=== PATIENT | female | born 1990 | race Two or more races ===

== ENCOUNTER 2021-06-04 10:30 | Outpatient (REF) | payer MEDICAID, SELFPAY ==
--- NOTE | ~2021-06-04 | XR_ITS ---
EXAMINATION: XR HAND, RIGHT CLINICAL INFORMATION: Unspecified injury of right wrist, hand and fingers, initial encounter. COMPARISON: None TECHNIQUE: PA, lateral, and oblique views of the right hand. FINDINGS: The bones and soft tissues are normal. No fracture. Alignment is anatomic. Joint spaces are maintained. No erosions or soft tissue calcifications. XR/XR hand RT min 3V IMPRESSION: Normal right hand.
== END 2021-06-04 10:31 | disposition home or self-care (01) ==
LOC: HO.XRAY 10:30
PROVIDERS: Absent Provider Internal Medicine; PCP Internal Medicine; Visit Provider Family Medicine
DX: S69.91XA Unspecified injury of right wrist, hand and finger(s), initial encounter (principal)
CPT/HCPCS: 73130

== ENCOUNTER 2023-04-02 07:23 | Emergency (ER) | payer MEDICAID, SELFPAY ==
--- NOTE | ~2023-04-02 | XR_ITS ---
EXAMINATION: XR CHEST CLINICAL INFORMATION: Left-sided chest pain for one month. COMPARISON: None available. TECHNIQUE: 2 views of the chest were obtained. FINDINGS: No significant abnormality is noted involving the heart, lungs, mediastinum, bony thorax or soft tissues. XR/XR chest 2V IMPRESSION: No acute cardiopulmonary process.
[2023-04-02 07:36] VITALS: BP 108/75; PULSE 57; RESP 18; TEMP 36.2; O2SAT 99; BMI 15.2
--- NOTE | 2023-04-02 09:00 | ED.GENADULT ---
HPI - General Adult General Chief complaint: Abdominal Pain Stated complaint: Chest pain Time Seen by Provider: 04/02/23 08:45 Source: patient Mode of arrival: ambulatory Limitations: no limitations History of Present Illness HPI narrative: Patient presents with left lower chest pain. Symptoms started approximately 1 month ago. They are progressively getting worse. Her pain level is currently 8/10. Pain is sharp. Is worse with certain movements and coughing. The pain does not radiate. It is not associated with nausea, vomiting or shortness breath. She has had no fevers or chills. No mucus production. No congestion.. There are no Anh relieving features. No prior treatment. Patient is also being treated for urinary tract infection with Macrobid. She reports to continue of urinary frequency, urgency and dysuria she denies any flank pain or low back pain Related Data Previous Rx's Medication Instructions Recorded meloxicam 15 mg tablet 15 mg PO DAILY #10 tabs 04/02/23 Allergies Allergy/AdvReac Type Severity Reaction Status Date / Time aspirin [Aspirin] Allergy Unknown RASH Unverified 06/21/20 17:55 Review of Systems Review of Systems: CONSTITUTIONAL: Denies weight loss, fever and chills. HEENT: Denies changes in vision and hearing. RESPIRATORY: Denies SOB and cough. CV: Denies palpitations + CP. GI: Denies abdominal pain, nausea, vomiting and diarrhea. : + dysuria and urinary frequency. MSK: Denies myalgia and joint pain. SKIN: Denies rash and pruritus. NEUROLOGICAL: Denies headache and syncope. PSYCHIATRIC: Denies recent changes in mood. Denies anxiety and depression. All other ROS are negative unless in HPI PMF Social History Social History Smoked in Last 30 Days: No Use of substances other than those prescribed or required for medical reasons: No Advance Directives: No Physical Exam ED Vital Signs: Vital Signs - 24 hr 04/02/23 09:45 Temperature 97.2 F Pulse Rate 57 Respiratory Rate 18 Blood Pressure 108/75 Pulse Oximetry 99 Oxygen Delivery Method Room Air BMI result Body Mass Index 15.2 GEN: Well developed, no acute distress, alert, oriented HEENT: Normocephalic, atraumatic, normal external ears, nose appears normal, no oropharyngeal edema or exudates Eyes: Normal to appearance Neck: Supple, no lymphadenopathy Respiratory: Talks in complete sentences, no respiratory distress, clear to auscultation bilaterally Cardiovascular: Regular rate and rhythm, no murmurs rubs or gallops Abdomen: Soft, nontender, nondistended, no guarding, no rebound Back: No CVA tenderness Extremities: No clubbing cyanosis or edema Neurologic: No focal neurologic deficits, cranial nerves 2-12 intact, strength is 5/5 bilaterally Skin: No rash Chest: Reproducible left lower chest wall tenderness to palpation Course Course Course Narrative: 32-year-old female presents with left-sided chest pain. Her examination revealed tenderness the left chest wall. This is nonexertional. Unlikely to be cardiac in nature. There is no indication to do EKG, troponin at this time. Chest x-ray was unremarkable free cardiopulmonary disease. Patient was also complaining of continued urinary symptoms. Urinary tract infection appears to be resolving. She will complete her medications and follow up as needed. Medications Administered Discontinued Medications Generic Name Dose Route Start Last Admin Trade Name Freq PRN Reason Stop Dose Admin Ibuprofen 600 mg 04/02/23 08:58 04/02/23 09:31 Ibuprofen 600 Mg Tablet PO 04/02/23 08:59 600 mg ONCE ONE Administration Medical Decision Making Medical Decision Making [facility] Narrative: 32-year-old female presents with lower chest pain. Examination had reproducible component to her exam. Her lungs were clear to auscultation bilaterally. Abdomen was soft and nontender although nurse triage note noted abdominal pain. She also complains of some urinary complaints and is currently on Macrobid. Regarding her chest pain, the differential diagnosis includes musculoskeletal pain, strain, sprain, costochondritis, fracture, contusion. There is no exertional component. This does not appear to be cardiac in nature. There is no lower extremity edema. No history PE or DVT. Doubt acute coronary syndrome, pulmonary embolus. Her radial pulses are symmetric bilaterally. Doubt dissection. At this point I believe the most appropriate study of choice would be to do chest x-ray to exclude widened mediastinum, pneumonia, CHF or other acute infiltrative disease. The patient continues have urinary complaints. Will check urinalysis. She may require further antibiotic treatment. Differential Diagnosis Differential Diagnoses: The differential diagnosis associated with the presentation includes (See above) Lab Data [facility] Lab Attestation statement: I reviewed the patient's lab results. Labs: Lab Results 04/02/23 04/02/23 Range/Units 08:47 08:47 Urine Color Yellow Urine Appearance Clear Urine pH 6.0 (5.0-9.0) Ur Specific [place] 1.020 (1.005-1.025) Urine Protein Negative (Neg-Trace) mg/dL Urine Glucose (UA) Negative (Negative) mg/dL Urine Ketones Negative (Negative) mg/dL Urine Blood Negative (Negative) Urine Nitrite Negative (Negative) Ur Leukocyte Esterase Trace H (Negative) Urine RBC 3-5 H (0-2) /HPF Urine WBC 0-5 (0-5) /HPF Ur Squamous Epith Cells 3-5 (0-2) /HPF Urine Bacteria Trace (None Seen) Hyaline Casts 0-2 (0-2) /LPF Urine Test NEGATIVE (NEGATIVE) Independent Interpretation I performed an independent interpretation of an: Plain X-Ray (Chest: No acute cardiopulmonary disease) Prescription Management I considered prescription management with: Pain Medication Discharge Plan Discharge Clinical Impression: Acute chest wall pain Patient Disposition: Home, Self-Care Instructions: Chest Pain (ED), Chest Wall Pain (ED) Prescriptions: New meloxicam 15 mg tablet 15 mg PO DAILY Qty: 10 0RF Referrals: [facility] [Primary Care Provider] - Stand Alone Forms: Work/School Release Print Language: Guatemalan
[2023-04-02 09:17] LABS: Appearance Urine Clear; Color Urine Yellow; Glucose Urine UA Negative (Negative); Leukocyte Esterase Urine Trace (Negative); Nitrite Urine Negative (Negative); UMIC TRIGGER UACC YES; Urine Blood Negative (Negative); Urine Ketones Negative (Negative); Urine Protein Negative (Neg-Trace)
[2023-04-02 09:18] LABS: UPreg QC Valid YES; Urine Pregnancy NEGATIVE (NEGATIVE)
[2023-04-02 09:20] LABS: Bacteria Urine Trace (None Seen); Hyaline Casts Urine 0-2 /LPF (0-2); WBC Urine 0-5 /HPF (0-5)
[2023-04-02] MEDS: Ibuprofen 600 MG TABLET PO (09:31)
== END 2023-04-02 10:11 | disposition home or self-care (01) ==
PROVIDERS: Emergency Provider Emergency Medicine
DX: R07.89 Other chest pain (principal); Z79.899 Other long term (current) drug therapy
CPT/HCPCS: 71046; 81001; 81025; 99283

== ENCOUNTER 2023-05-06 17:44 | Outpatient (REF) | payer MEDICAID, SELFPAY | END 2023-05-06 17:45 | disposition home or self-care (01) | LOC: HO.HHCLNP 17:44 | PROVIDERS: Visit Provider Emergency Medicine | DX: R30.0 Dysuria (principal) | CPT/HCPCS: 87086; 87186 ==

== ENCOUNTER 2023-07-31 09:45 | Outpatient (REF) | payer MEDICAID, SELFPAY ==
[2023-07-31 11:30] LABS: MANUAL DIFF FLAG NO
[2023-07-31 11:43] LABS: Basophils Absolute Auto 0.1 X10*3/uL (0.0-0.2); Basophils Percent Auto 0.9 % (0-2); Eosinophils Absolute Auto 0.1 X10*3/uL (0.0-0.4); Eosinophils Percent Auto 1.9 % (0-4); Hematocrit 40.6 % (37.0-47.0); Hemoglobin 13.3 g/dl (12.0-16.0); Imm Gran Abs Auto 0.04 X10*3/uL (0.00-0.03); Imm Gran Pct Auto 0.5 % (0.0-0.4); Lymphocytes Absolute Auto 1.7 X10*3/uL (1.2-4.9); Lymphocytes Percent Auto 22.4 % (20-40); Mean Corpuscular HGB Conc 32.8 g/dl (31.0-35.0); Mean Corpuscular Hemoglobin 28.2 pg (27.0-33.0); Mean Platelet Volume 10.8 fL (9.4-12.3); Monocytes Absolute Auto 0.5 X10*3/uL (0.1-1.2); Neutrophils Percent Auto 67.3 % (45-73); Platelet Count 370 X10*3/uL (160-400); Red Blood Count 4.72 X10*6/uL (4.20-5.50); Red Cell Distribution Width 13.2 % (11.0-16.0); White Blood Count 7.5 X10*3/uL (4.8-10.8)
[2023-07-31 12:24] LABS: HIV AB/AG Nonreactive (Nonreactive); HIV Num 1 0.08 S/CO (0.00-0.99)
[2023-07-31 12:27] LABS: Syphilis Screen Nonreactive (Nonreactive)
[2023-07-31 18:22] LABS: Appearance Urine Clear; Color Urine Yellow; Glucose Urine UA Negative (Negative); Leukocyte Esterase Urine Negative (Negative); Nitrite Urine Negative (Negative); PH 6.5 (5.0-9.0); Specific Gravity - Urine <= 1.005 (1.005-1.025); Urine Blood Negative (Negative); Urine Ketones Negative (Negative); Urine Protein Negative (Neg-Trace)
[2023-08-01 06:54] LABS: CT PCR NOT DETECTED (Not Detect.); NG PCR NOT DETECTED (Not Detect.)
[2023-08-01 11:23] LABS: BV Int Neg Control Negative (Negative); BV Int Pos Control Positive (Positive)
== END 2023-07-31 09:46 | disposition home or self-care (01) ==
LOC: HO.HHCL 09:45
PROVIDERS: Visit Provider Student in an Organized Health Care Education/Training Program
DX: Z11.4 Encounter for screening for human immunodeficiency virus [HIV] (principal); N73.9 Female pelvic inflammatory disease, unspecified; R30.0 Dysuria
CPT/HCPCS: 0353U; 36415; 81003; 85025; 86780; 87389; 87480; 87510; 87660

== ENCOUNTER 2023-08-14 14:49 | Outpatient (REF) | payer MEDICAID, SELFPAY | END 2023-08-14 14:50 | disposition home or self-care (01) | LOC: HO.HHCL 14:49 | PROVIDERS: Visit Provider Internal Medicine | DX: L65.9 Nonscarring hair loss, unspecified (principal); N89.8 Other specified noninflammatory disorders of vagina | CPT/HCPCS: 36415; 81513; 84443 ==

== ENCOUNTER 2023-09-01 07:28 | Emergency (ER) | payer MEDICAID, SELFPAY ==
--- NOTE | ~2023-09-01 | XR_ITS ---
EXAMINATION: XR CHEST CLINICAL INFORMATION: Chest pain. COMPARISON: None available. TECHNIQUE: Frontal view of the chest was obtained. FINDINGS: No significant abnormality is noted involving the heart, lungs, mediastinum, bony thorax or soft tissues. XR/XR chest 1V IMPRESSION: Unremarkable chest examination.
--- NOTE | 2023-09-01 07:30 | ECG_ITS ---
Test Reason : chest pain Blood Pressure : / mmHG Vent. Rate : 063 BPM Atrial Rate : 063 BPM P-R Int : 112 ms QRS Dur : 062 ms QT Int : 408 ms P-R-T Axes : 056 051 029 degrees QTc Int : 417 ms Sinus rhythm with marked sinus arrhythmia Otherwise normal ECG When compared with ECG of 18-MAR-2010 22:00, Nonspecific T wave abnormality now evident in Anterior leads Referred By: Generic ED Physician Electronically Signed By:SHARON GARCIA MD
--- NOTE | 2023-09-01 07:34 | ED.CHESTPAIN ---
HPI - Chest Pain General Chief Complaint: Chest Pain Stated Complaint: Chest & Back Discomfort Time Seen by Provider: 09/01/23 07:31 Source: patient and old records reviewed Mode of arrival: ambulatory Limitations: no limitations History of Present Illness HPI narrative: 32 yo female with no sig PMH other than UTI here with c/o a few days of sore throat, body aches, some pain across the chest, some dysuria. No fevers, no dyspnea, not on OCPs, no travel, no sick contacts. Has had chest pain in the past. MD complaint: chest pain Onset (ago): day(s) (few) Timing of current episode: constant Prior episodes: Yes Onset: during rest Pain location: substernal Pain radiation: none Severity: mild Quality: aching Relieving factors: nothing Exacerbating factors: palpation Context: recent illness Associated symptoms: other (sore throat, body aches, dysuria) Treatment prior to arrival: none Related Data Previous Rx's Medication Instructions Recorded meloxicam 15 mg tablet 15 mg PO DAILY #10 tabs 04/02/23 cyclobenzaprine 10 mg tablet 10 mg PO TID PRN muscle spasm #20 09/01/23 tabs Allergies Allergy/AdvReac Type Severity Reaction Status Date / Time aspirin [Aspirin] Allergy Unknown RASH Unverified 06/21/20 17:55 Review of Systems Review of Systems: Constitutional : No Weight loss, No Fever, No Chills ENT/Mouth : pos sore throat, No Rhinorrhea Eyes: No Eye Pain, No Swelling Cardiovascular : pos Chest Pain, no SOB, no Dyspnea on Exertion, No Orthopnea, No Edema, No Palpitations Respiratory : No Cough, No Sputum Gastrointestinal : no Nausea, No Vomiting, No Diarrhea, No abdominal Pain, No Hematochezia, No Melena Genitourinary : pos Dysuria, No Urinary Frequency Musculoskeletal : No joint pain, pos Myalgias, No Joint Swelling Skin : No Skin Lesions, No rash Neuro : No Weakness, No Numbness, No Dizziness, No Headache Psych : No Anxiety/Panic, No Depression Heme/Lymph: No Bruising, No Lymphadenopathy Endocrine : No Polyuria, No Polydipsia All other systems reviewed and are negative PMFSH Past Medical History Attestation statement: The following information was validated with the patient. Source: old records reviewed Medical History Acute UTI Social History Social History (Updated 09/01/23 @ 07:35 by Yvonne Harper DO) Patient Tobacco Use Status: Never used Tobacco Advance Directives: No Physical Exam Vital Signs: Vital Signs: Last Vital Signs Temp 97.7 F 09/01/23 07:40 Pulse 64 09/01/23 09:41 Resp 17 09/01/23 09:41 BP 108/64 09/01/23 09:41 Pulse Ox 98 09/01/23 09:41 O2 Del Method Room Air 09/01/23 07:40 BMI result Body Mass Index 34.1 Appearance: Alert. Oriented X3. No acute distress. Eyes: Pupils equal, round and reactive to light. ENT: Pharynx mild erythema there is tonsil swelling but no exudates and uvula is midline Neck: Normal inspection. Neck supple. normal ROM CVS: Normal heart rate and rhythm. Pulses normal. Respiratory: No respiratory distress. Breath sounds normal. Abdomen: Soft and nontender. Skin: Skin warm and dry. Normal skin color. Normal skin turgor. Extremities: No lower extremity edema. No calf ttp Neuro: Oriented X 3. No motor deficit. No sensory deficit. Medical Decision Making Medical Decision Making [facility] Narrative: 32 yo female with PMH of UTI and prior chest pain - PERC negative no ACS risk factors here with c/o URI symptoms and some dysuria also diffuse body aches that includes chest pain - at this time will obtain EKG, CXR, viral panel/strep and trop x 1. Suspect chest wall pain and possibly viral syndrome vs strep. Normal neck ROM tolerating secretinos, normal voice doubt [employer], retropharyngeal abscess or deeper space infection. Differential Diagnosis Differential Diagnoses: The differential diagnosis associated with the presentation includes viral syndrome, chest wall pain, strep throat Admission/Observation Consideration of admission/observation: Escalation of care including admission/observation considered work up negative not toxic stable for DC Lab Data [facility] Lab Attestation statement: I reviewed the patient's lab results. 09/01/23 08:40 09/01/23 08:40 Labs: Lab Results 09/01/23 Range/Units 08:40 WBC 9.1 (4.8-10.8) X10*3/uL RBC 4.71 (4.20-5.50) X10*6/uL Hgb 13.4 (12.0-16.0) g/dl Hct 40.2 (37.0-47.0) % MCV 85.4 (80.0-98.0) fL MCH 28.5 (27.0-33.0) pg MCHC 33.3 (31.0-35.0) g/dl RDW 13.5 (11.0-16.0) % Plt Count 330 (160-400) X10*3/uL MPV 9.8 (9.4-12.3) fL Immature Gran % (Auto) 0.4 (0.0-0.4) % Neut % (Auto) 70.9 (45-73) % Lymph % (Auto) 21.2 (20-40) % [place] % (Auto) 5.0 (2-11) % Eos % (Auto) 2.1 (0-4) % Baso % (Auto) 0.4 (0-2) % Lymph # (Auto) 1.9 (1.2-4.9) X10*3/uL [place] # (Auto) 0.5 (0.1-1.2) X10*3/uL Eos # (Auto) 0.2 (0.0-0.4) X10*3/uL Baso # (Auto) 0.0 (0.0-0.2) X10*3/uL Abs Immat Gran (auto) 0.04 H (0.00-0.03) X10*3/uL Absolute Neuts (auto) 6.4 (2.0-8.3) x10*3/uL Absolute Nucleated RBC 0.000 (0.0-0.012) X10*3/uL Nucleated RBC % (auto) 0.0 (0.0-0.2) /100WBC Sodium 139 (135-145) mmol/L Potassium 3.8 (3.3-5.1) mmol/L Chloride 106 (96-108) mmol/L Carbon Dioxide 27 (22-29) mmol/L Anion Gap 10 L (12-20) BUN 11 (9-16) mg/dL Creatinine 0.73 (0.5-1.4) mg/dL Estim Creat Clear Calc 112.7 Estimated GFR > 60 Random Glucose 97 (60-115) mg/dL Calcium 8.9 (8.4-10.2) mg/dL Magnesium 1.8 (1.6-2.6) mg/dL Total Bilirubin 0.4 (0.0-1.0) mg/dL Direct Bilirubin 0.2 (0.0-0.5) mg/dL AST 20 (5-31) U/L ALT 20 (0-31) U/L Alkaline Phosphatase 70 (39-117) U/L Troponin I High Sens < 2.7 (<3.5-17.0) ng/L Total Protein 7.1 (6.5-8.0) g/dL Albumin 3.8 (3.5-5.0) g/dL Urine Color Yellow Urine Appearance Cloudy Urine pH 5.5 (5.0-9.0) Ur Specific [place] 1.025 (1.005-1.025) Urine Protein Negative (Neg-Trace) mg/dL Urine Glucose (UA) Negative (Negative) mg/dL Urine Ketones Negative (Negative) mg/dL Urine Blood Negative (Negative) Urine Nitrite Negative (Negative) Ur Leukocyte Esterase Negative (Negative) Urine Test NEGATIVE (NEGATIVE) COVID-19 (TIFFANIE) Negative (Negative) COVID-19 Clin Com See Note S. pyogenes GrpA LATOSHA Negative (Negative) Independent Interpretation I performed an independent interpretation of an: EKG and Plain X-Ray (normal ) Interpretation: Rate: 63 Rhythm: NSR [place]: normal Normal P waves. Normal [place]ICA. Normal QRS complex. ST T wave : normal no [place], inverted t waves V1 and V2 qTC: normal prior studies: no acute ischemia, t waves noted in past The study has been interpreted contemporaneously by me. . Radiology Impression Discussion of test interpretation with radiology: I have reviewed the radiologist's reading. External Record Review External record reviewed: Inpatient record Prescription Management I considered prescription management with: Other Discharge Plan Discharge Clinical Impression: Atypical chest pain, Acute viral syndrome Patient Disposition: Home, Self-Care Instructions: Chest Pain (ED), Viral Syndrome (ED) Additional Instructions: no strep, no covid, labs, chest xray, heart tests, urine all normal negative . likely viral syndrome. return for worsening pain, fainting, dizziness, or any other concerns. sin estreptococos, sin covid, laboratorios, radiograf?a de t?rax, pruebas card?acas, orina, todo normal, embarazo negativo. Probablemente s?ndrome viral. Regrese si el dolor empraora, desmgabeos, cassidyos o cualquier otra inquietud. Prescriptions: New cyclobenzaprine 10 mg tablet 10 mg PO TID PRN (Reason: muscle spasm) Qty: 20 0RF No Action meloxicam 15 mg tablet 15 mg PO DAILY Qty: 10 0RF Stand Alone Forms: Work/School Release Interventions: ED Discharge Assessment Last Done: 09/01/23 09:42 Discharge Date/Time: 09/01/23 09:43 Print Language: Urdu
[2023-09-01 07:40] VITALS: BP 117/78; PULSE 60; RESP 18; TEMP 36.5; O2SAT 98; BMI 34.1
[2023-09-01 08:46] LABS: MANUAL DIFF FLAG NO
[2023-09-01 08:52] LABS: Basophils Percent Auto 0.4 % (0-2); Eosinophils Absolute Auto 0.2 X10*3/uL (0.0-0.4); Eosinophils Percent Auto 2.1 % (0-4); Hematocrit 40.2 % (37.0-47.0); Hemoglobin 13.4 g/dl (12.0-16.0); Imm Gran Abs Auto 0.04 X10*3/uL (0.00-0.03); Imm Gran Pct Auto 0.4 % (0.0-0.4); Lymphocytes Absolute Auto 1.9 X10*3/uL (1.2-4.9); Lymphocytes Percent Auto 21.2 % (20-40); Mean Corpuscular HGB Conc 33.3 g/dl (31.0-35.0); Mean Corpuscular Hemoglobin 28.5 pg (27.0-33.0); Mean Corpuscular Volume 85.4 fL (80.0-98.0); Mean Platelet Volume 9.8 fL (9.4-12.3); Monocytes Absolute Auto 0.5 X10*3/uL (0.1-1.2); Neutrophils Absolute Auto 6.4 x10*3/uL (2.0-8.3); Neutrophils Percent Auto 70.9 % (45-73); Platelet Count 330 X10*3/uL (160-400); Red Blood Count 4.71 X10*6/uL (4.20-5.50); Red Cell Distribution Width 13.5 % (11.0-16.0); White Blood Count 9.1 X10*3/uL (4.8-10.8)
[2023-09-01 08:53] LABS: Appearance Urine Cloudy; Color Urine Yellow; Glucose Urine UA Negative (Negative); Leukocyte Esterase Urine Negative (Negative); Nitrite Urine Negative (Negative); PH 5.5 (5.0-9.0); Specific Gravity - Urine 1.025 (1.005-1.025); Urine Blood Negative (Negative); Urine Ketones Negative (Negative); Urine Protein Negative (Neg-Trace)
[2023-09-01 08:54] LABS: UPreg QC Valid YES; Urine Pregnancy NEGATIVE (NEGATIVE)
[2023-09-01 09:05] LABS: Alanine Aminotransferase 20 U/L (0-31); Albumin Level 3.8 g/dL (3.5-5.0); Alkaline Phosphatase 70 U/L (39-117); Anion Gap 10 (12-20); Aspartate Amino Transferase 20 U/L (5-31); Bilirubin Direct 0.2 mg/dL (0.0-0.5); Bilirubin Total 0.4 mg/dL (0.0-1.0); Blood Urea Nitrogen 11 mg/dL (9-16); Calcium 8.9 mg/dL (8.4-10.2); Carbon Dioxide 27 mmol/L (22-29); Chloride 106 mmol/L (96-108); Creatinine Clr Calc Pharmacy 112.7; Estimated Glomerular Filt Rate > 60; Glucose Random 97 mg/dL (60-115); Magnesium 1.8 mg/dL (1.6-2.6); Potassium 3.8 mmol/L (3.3-5.1); Sodium 139 mmol/L (135-145); Total Protein 7.1 g/dL (6.5-8.0)
[2023-09-01 09:06] LABS: IDNOW Serial# 08D9AD1C; Strep A Nucleic Acid Negative (Negative)
[2023-09-01 09:12] LABS: Troponin-I High Sensitivity < 2.7 ng/L (<3.5-17.0)
[2023-09-01 09:13] LABS: COVID-19 Test Negative (Negative); IDNOW Serial# BCCEAD1C
[2023-09-01 09:41] VITALS: BP 108/64; PULSE 64; RESP 17; O2SAT 98
== END 2023-09-01 09:43 | disposition home or self-care (01) ==
PROVIDERS: Emergency Provider Emergency Medicine
DX: B34.9 Viral infection, unspecified (principal); R07.89 Other chest pain; Z11.52 Encounter for screening for COVID-19
CPT/HCPCS: 71045; 80048; 80076; 81003; 81025; 83735; 84484; 85025; 87635; 87651; 93005; 99283; 99285

== ENCOUNTER 2023-09-05 07:47 | Emergency (ER) | payer MEDICAID, SELFPAY ==
--- NOTE | ~2023-09-05 | US_ITS ---
EXAMINATION: US PELVIS CLINICAL INFORMATION: Lower abdominal pain, right lower quadrant tenderness COMPARISON: Pelvic ultrasound 08/09/2019. TECHNIQUE: Ultrasound of the pelvis is performed using both transabdominal and transvaginal transducers along with Doppler. Transvaginal imaging is performed due to inadequate visualization transabdominally. FINDINGS: Limited transabdominal examination and limited assessment of the right lower quadrant abdomen due to extensive overlying bowel gas. Uterus: The uterus is anteverted/retroflexed and measures 8.8 x 4.7 x 6.8 cm. Anterior lower uterine segment section scar. Normal size and appearance without focal myometrial lesions. The double wall endometrial thickness is 15 mm, homogeneously echogenic, secretory phase appearance. No focal endometrial lesions or hypervascularity identified The uterus is smooth in contour and has normal myometrial echogenicity. No visible fibroid. Adnexa: Both ovaries are visualized. There is normal color flow to the adnexa. There is no ovarian torsion. Small anechoic pelvic free fluid. No ascites. Right ovary measures 4.9 x 2.4 x 3.0 cm. Containing a dominant, 2.9 x 2.1 x 2.8 cm collapsed cystic structure, without internal vascularity, may represent a hemorrhagic cyst or corpus luteum. No suspicious lesions. Left ovary measures 2.6 x 1.9 x 1.6 cm. Normal size and appearance. Normal Doppler vascularity. Other: Appendix not visualized due to overlying bowel gas. US/US pelvic and transvaginal IMPRESSION: 1. No evidence of ovarian torsion, as clinically queried. 2. Right ovarian 2.9 cm collapsed cystic structure, may represent a hemorrhagic cyst or corpus luteum for which no dedicated follow-up imaging is required. 3. Small anechoic pelvic free fluid. 4. Nonvisualized appendix due to overlying bowel gas.
[2023-09-05 07:54] VITALS: BP 110/66; PULSE 66; RESP 18; TEMP 36.2; O2SAT 98; BMI 34.5
[2023-09-05 08:15] LABS: Appearance Urine Clear; Color Urine Yellow; Glucose Urine UA Negative (Negative); Leukocyte Esterase Urine Negative (Negative); Nitrite Urine Negative (Negative); Specific Gravity - Urine 1.025 (1.005-1.025); Urine Blood Negative (Negative); Urine Ketones Negative (Negative); Urine Protein Negative (Neg-Trace)
[2023-09-05 08:16] LABS: UPreg QC Valid YES; Urine Pregnancy NEGATIVE (NEGATIVE)
[2023-09-05 08:36] LABS: MANUAL DIFF FLAG NO
[2023-09-05 08:38] LABS: Basophils Absolute Auto 0.1 X10*3/uL (0.0-0.2); Basophils Percent Auto 0.6 % (0-2); Eosinophils Absolute Auto 0.2 X10*3/uL (0.0-0.4); Eosinophils Percent Auto 2.9 % (0-4); Hematocrit 39.9 % (37.0-47.0); Hemoglobin 13.3 g/dl (12.0-16.0); Imm Gran Abs Auto 0.03 X10*3/uL (0.00-0.03); Imm Gran Pct Auto 0.4 % (0.0-0.4); Lymphocytes Percent Auto 24.8 % (20-40); Mean Corpuscular HGB Conc 33.3 g/dl (31.0-35.0); Mean Corpuscular Hemoglobin 28.4 pg (27.0-33.0); Mean Corpuscular Volume 85.3 fL (80.0-98.0); Mean Platelet Volume 9.4 fL (9.4-12.3); Monocytes Absolute Auto 0.5 X10*3/uL (0.1-1.2); Monocytes Percent Auto 6.1 % (2-11); Neutrophils Absolute Auto 5.2 x10*3/uL (2.0-8.3); Neutrophils Percent Auto 65.2 % (45-73); Platelet Count 321 X10*3/uL (160-400); Red Blood Count 4.68 X10*6/uL (4.20-5.50); Red Cell Distribution Width 13.4 % (11.0-16.0)
[2023-09-05 08:57] LABS: Alanine Aminotransferase 23 U/L (0-31); Albumin Level 3.9 g/dL (3.5-5.0); Alkaline Phosphatase 73 U/L (39-117); Anion Gap 12 (12-20); Aspartate Amino Transferase 21 U/L (5-31); Bilirubin Direct 0.2 mg/dL (0.0-0.5); Bilirubin Total 0.5 mg/dL (0.0-1.0); Blood Urea Nitrogen 11 mg/dL (9-16); Calcium 9.2 mg/dL (8.4-10.2); Carbon Dioxide 26 mmol/L (22-29); Chloride 105 mmol/L (96-108); Creatinine Clr Calc Pharmacy 100.8; Estimated Glomerular Filt Rate > 60; Glucose Random 91 mg/dL (60-115); Lipase 20 U/L (8-78); Potassium 4.1 mmol/L (3.3-5.1); Sodium 139 mmol/L (135-145); Total Protein 7.4 g/dL (6.5-8.0)
--- NOTE | 2023-09-05 09:31 | ED.GENADULT ---
HPI - General Adult General Chief complaint: Abdominal Pain Stated complaint: lower abd pain? Time Seen by Provider: 09/05/23 09:28 Source: patient and slip cover maker Mode of arrival: ambulatory Limitations: language barrier History of Present Illness HPI narrative: Patient is a 32-year-old Armenian-speaking female presenting to the emergency department with complaint of lower abdominal pain for the past 3 days as well as abnormal vaginal discharge. States she fell her PCP 2 weeks ago and had pelvic exam at that time but is unsure of results. Denies any nausea, vomiting, diarrhea, constipation. Denies fevers. Does report some dysuria, denies hematuria or other urinary symptoms. Denies back or flank pain. Reports she is having a significant amount of thick white vaginal discharge. Took ibuprofen and NyQuil last night. MD complaint: Lower abdominal pain Onset (ago): day(s) Location: abdomen Radiation: non-radiation Severity: severe Quality: sharp Pain Consistency: constant Relieving factors: medication Exacerbating factors: movement Associated symptoms: other (Abnormal vaginal discharge) Treatments prior to arrival: NSAID Related Data Previous Rx's Medication Instructions Recorded meloxicam 15 mg tablet 15 mg PO DAILY #10 tabs 04/02/23 cyclobenzaprine 10 mg tablet 10 mg PO TID PRN muscle spasm #20 09/01/23 tabs metronidazole 500 mg tablet 500 mg PO BID #14 tabs 09/05/23 Allergies Allergy/AdvReac Type Severity Reaction Status Date / Time aspirin [Aspirin] Allergy Unknown RASH Verified 09/05/23 07:56 Review of Systems Review of Systems: As per HPI. Yes all other systems are reviewed and are negative Constitutional: Constitutional: Reports as per HPI [facility] Past Medical History Medical History Acute UTI Social History Social History (Updated 09/01/23 @ 07:35 by Yvonne Harper DO) Alcohol intake: never Patient Tobacco Use Status: Never used Tobacco Smoked in Last 30 Days: No Use of substances other than those prescribed or required for medical reasons: No Advance Directives: No Patient : No Physical Exam ED Vital Signs: Vital Signs - 24 hr 09/05/23 07:54 09/05/23 11:06 09/05/23 12:00 Temperature 97.2 F 97.8 F 98.9 F Pulse Rate 66 60 52 Respiratory Rate 18 16 16 Blood Pressure 110/66 110/51 L 119/69 Pulse Oximetry 98 100 100 Oxygen Delivery Method Room Air Room Air Room Air BMI result Body Mass Index 34.5 Vital signs have been reviewed and appear to be correct. Blood pressure normal. Heart rate normal. Respiratory rate normal. Temperature normal. Oxygen saturation normal. Const General: cooperative, healthy appearing and no acute distress Orientation/consciousness: oriented to person, oriented to place, oriented to time and patient oriented x3 Limitations: no limitations HENMT Head: Yes normocephalic and Yes atraumatic Ears: external ears normal General nose exam: Normal external nose present Face and sinus: Yes face symmetric Mouth: oropharynx normal and moist mucous membranes Throat: Yes uvula midline Eyes Pupils: Equal, round and reactive pupils present Neck Neck: Yes normal visual inspection and Yes supple Resp Effort & Inspection: normal respiratory effort and able to speak in complete sentences Auscultation: clear to auscultation bilaterally Cardio Rate: regular rate Rhythm: regular rhythm Heart sounds: S1 normal heart sound present and S2 normal heart sound present GI Inspection: Yes normal to inspection Palpation (GI): Soft to palpation and Tenderness to palpation present (GI) in the LLQ and in the RLQ Auscultation: normoactive bowel sounds Other: Pelvic exam chaperoned by PILY Lyons General: Yes no CVA tenderness External Female Exam: normal external appearance Speculum Exam - Vagina: normal appearance of the vagina, abnormal vaginal discharge white and tenderness bilaterally introital Speculum Exam - Cervix: normal appearance of the cervix and Abnormal cervical discharge present white Back/Spine/Pelvis Back: no CVA tenderness Skin General skin exam: elasticity normal and turgor normal Neuro General: oriented to person, oriented to place, oriented to time, patient oriented x3, moves all extremities, no focal motor deficits and CN's II-XI intact bilaterally Cranial nerves: Yes Equal, round and reactive pupils present Cognition (Neuro): normal cognition Extrem General: Yes full ROM, Yes no pedal edema and Yes no calf tenderness Psych Mental Status: mental status grossly normal Affect: normal affect Thought process: Normal thought process present Medical Decision Making Medical Decision Making MDM Narrative: Patient is a 32-year-old Armenian-speaking female presenting to the emergency department with complaint of lower abdominal pain for the past 3 days as well as abnormal vaginal discharge. On exam patient is awake, A+Ox3, VS WNL, afebrile, normal neurological exam without focal deficits, physical exam findings as above. Given reported symptoms and physical exam findings, initial differential includes ovarian cyst, bacterial vaginosis, chuck, trichomonas, gonorrhea, chlamydia. Labs unremarkable. No evidence of infection on urinalysis, negative . Ultrasound notable for no evidence of ovarian torsion, likely ruptured cyst. Appendix not visualized but low suspicion for appendicitis. My interpretation is in agreement with the radiologist's interpretation. Based on pelvic exam findings, will treat with metronidazole for BV while other results pending. Advised patient she will be contacted with any positive results. Instructed patient to follow up with PCP. Return precautions discussed at bedside. Patient verbalized understanding of and agreement with plan. Differential Diagnosis Differential Diagnoses: The differential diagnosis associated with the presentation includes As per [facility] Admission/Observation Consideration of admission/observation: Escalation of care including admission/observation considered Lab Data [facility] Lab Attestation statement: I reviewed the patient's lab results. As per [facility] 09/05/23 08:32 09/05/23 08:32 Labs: Lab Results 09/05/23 09/05/23 Range/Units 08:04 08:32 WBC 8.0 (4.8-10.8) X10*3/uL RBC 4.68 (4.20-5.50) X10*6/uL Hgb 13.3 (12.0-16.0) g/dl Hct 39.9 (37.0-47.0) % MCV 85.3 (80.0-98.0) fL MCH 28.4 (27.0-33.0) pg MCHC 33.3 (31.0-35.0) g/dl RDW 13.4 (11.0-16.0) % Plt Count 321 (160-400) X10*3/uL MPV 9.4 (9.4-12.3) fL Immature Gran % (Auto) 0.4 (0.0-0.4) % Neut % (Auto) 65.2 (45-73) % Lymph % (Auto) 24.8 (20-40) % [place] % (Auto) 6.1 (2-11) % Eos % (Auto) 2.9 (0-4) % Baso % (Auto) 0.6 (0-2) % Lymph # (Auto) 2.0 (1.2-4.9) X10*3/uL [place] # (Auto) 0.5 (0.1-1.2) X10*3/uL Eos # (Auto) 0.2 (0.0-0.4) X10*3/uL Baso # (Auto) 0.1 (0.0-0.2) X10*3/uL Abs Immat Gran (auto) 0.03 (0.00-0.03) X10*3/uL Absolute Neuts (auto) 5.2 (2.0-8.3) x10*3/uL Absolute Nucleated RBC 0.000 (0.0-0.012) X10*3/uL Nucleated RBC % (auto) 0.0 (0.0-0.2) /100WBC Sodium 139 (135-145) mmol/L Potassium 4.1 (3.3-5.1) mmol/L Chloride 105 (96-108) mmol/L Carbon Dioxide 26 (22-29) mmol/L Anion Gap 12 (12-20) BUN 11 (9-16) mg/dL Creatinine 0.82 (0.5-1.4) mg/dL Estim Creat Clear Calc 100.8 Estimated GFR > 60 Random Glucose 91 (60-115) mg/dL Calcium 9.2 (8.4-10.2) mg/dL Total Bilirubin 0.5 (0.0-1.0) mg/dL Direct Bilirubin 0.2 (0.0-0.5) mg/dL AST 21 (5-31) U/L ALT 23 (0-31) U/L Alkaline Phosphatase 73 (39-117) U/L Total Protein 7.4 (6.5-8.0) g/dL Albumin 3.9 (3.5-5.0) g/dL Lipase 20 (8-78) U/L Urine Color Yellow Urine Appearance Clear Urine pH 6.0 (5.0-9.0) Ur Specific [place] 1.025 (1.005-1.025) Urine Protein Negative (Neg-Trace) mg/dL Urine Glucose (UA) Negative (Negative) mg/dL Urine Ketones Negative (Negative) mg/dL Urine Blood Negative (Negative) Urine Nitrite Negative (Negative) Ur Leukocyte Esterase Negative (Negative) Urine Test NEGATIVE (NEGATIVE) Independent Interpretation I performed an independent interpretation of an: Ultrasound Interpretation: No ovarian torsion, likely ruptured right ovarian cyst Radiology Impression Discussion of test interpretation with radiology: I have reviewed the radiologist's reading. Radiologist Impression: US/US pelvic and transvaginal IMPRESSION: 1. No evidence of ovarian torsion, as clinically queried. 2. Right ovarian 2.9 cm collapsed cystic structure, may represent a hemorrhagic cyst or corpus luteum for which no dedicated follow-up imaging is required. 3. Small anechoic pelvic free fluid. 4. Nonvisualized appendix due to overlying bowel gas. External Record Review External record reviewed: Inpatient record, Office record and Outpatient record Prescription Management I considered prescription management with: Antibiotic Discharge Plan Discharge Clinical Impression: Bacterial vaginosis Patient Disposition: Home, Self-Care Instructions: Bacterial Vaginosis (ED) Additional Instructions: Usted est? siendo tratada por vaginosis bacteriana con un antibi?christopher llamado metronidazol. Complete el ciclo completo de antibi?ticos seg?n lo prescrito. Kristine un seguimiento con webb obstetra/ginec?logo esta semana. Algunas pruebas realizadas en urgencias a?n no mays dado resultados. Se le comunicar? cualquier resultado positivo. Regrese al departamento de emergencias si presenta un empeoramiento del dolor, v?mitos, fiebre de 100.4 ?F o m?s, empeoramiento del flujo o sangrado vaginal o cualquier otro s?ntoma preocupante. Prescriptions: New metronidazole 500 mg tablet 500 mg PO BID Qty: 14 0RF No Action meloxicam 15 mg tablet 15 mg PO DAILY Qty: 10 0RF cyclobenzaprine 10 mg tablet 10 mg PO TID PRN (Reason: muscle spasm) Qty: 20 0RF Print Language: Armenian
[2023-09-05 11:06] VITALS: BP 110/51; PULSE 60; RESP 16; TEMP 36.6; O2SAT 100
[2023-09-05 12:00] VITALS: BP 119/69; PULSE 52; RESP 16; TEMP 37.2; O2SAT 100
[2023-09-05 14:28] LABS: CT PCR NOT DETECTED (Not Detect.); NG PCR NOT DETECTED (Not Detect.)
[2023-09-06 14:32] LABS: BV Int Neg Control Negative (Negative); BV Int Pos Control Positive (Positive)
== END 2023-09-05 14:56 | disposition home or self-care (01) ==
PROVIDERS: Registered Nurse Emergency; Emergency Provider Emergency Medicine
DX: N76.0 Acute vaginitis (principal)
CPT/HCPCS: 0353U; 36415; 76830; 76856; 80048; 80076; 81003; 81025; 83690; 85025; 87480; 87510; 87660; 99284

== ENCOUNTER 2023-09-07 16:43 | Outpatient (REF) | payer MEDICAID, SELFPAY ==
[2023-09-14 09:44] LABS: Glucose-6-Phosphate Dehydrogen 16.4 U/g Hgb (7.0-20.5)
== END 2023-09-07 16:44 | disposition home or self-care (01) ==
LOC: HO.HHCL 16:43
PROVIDERS: Visit Provider Family Medicine
DX: L66.1 Lichen planopilaris (principal)
CPT/HCPCS: 36415; 82955

== ENCOUNTER 2023-10-06 18:30 | Outpatient (REF) | payer MEDICAID, SELFPAY ==
[2023-10-09 21:34] LABS: C. trachomatis RNA TMA NOT DETECTED (NOT DETECTED); N. gonorrhoeae RNA TMA NOT DETECTED (NOT DETECTED)
== END 2023-10-06 18:31 | disposition home or self-care (01) ==
LOC: HO.HHCLNP 18:30
PROVIDERS: Visit Provider Nurse Practitioner Family
DX: N89.8 Other specified noninflammatory disorders of vagina (principal)
CPT/HCPCS: 36415; 81513; 87491; 87591

== ENCOUNTER 2023-10-28 18:37 | Outpatient (REF) | payer MEDICAID, SELFPAY ==
[2023-10-30 22:49] LABS: C. trachomatis RNA TMA NOT DETECTED (NOT DETECTED); N. gonorrhoeae RNA TMA NOT DETECTED (NOT DETECTED)
[2023-10-31 00:18] LABS: Trichomonas (NAAT) NOT DETECTED (NOT DETECTED)
[2023-10-31 06:43] LABS: HPV mRNA E6/E7 rflx Not Detected (Not Detected)
== END 2023-10-28 18:38 | disposition home or self-care (01) ==
LOC: HO.HHCLNP 18:37
PROVIDERS: Visit Provider Internal Medicine
DX: N89.8 Other specified noninflammatory disorders of vagina (principal); Z12.4 Encounter for screening for malignant neoplasm of cervix
CPT/HCPCS: 36415; 81513; 87491; 87591; 87624; 87661; 88142

== ENCOUNTER 2024-01-19 12:40 | Outpatient (REF) | payer MEDICAID, SELFPAY | END 2024-01-19 12:41 | disposition home or self-care (01) | LOC: HO.HHCLNP 12:40 | PROVIDERS: Visit Provider Internal Medicine | DX: R39.9 Unspecified symptoms and signs involving the genitourinary system (principal); N89.8 Other specified noninflammatory disorders of vagina | CPT/HCPCS: 36415; 81513; 87086; 87088; 87186 ==

== ENCOUNTER 2024-02-03 15:37 | Outpatient (REF) | payer MEDICAID, SELFPAY ==
[2024-02-03 16:04] LABS: MANUAL DIFF FLAG NO
[2024-02-03 16:20] LABS: Basophils Absolute Auto 0.1 X10*3/uL (0.0-0.2); Basophils Percent Auto 0.8 % (0-2); Eosinophils Absolute Auto 0.2 X10*3/uL (0.0-0.4); Eosinophils Percent Auto 2.6 % (0-4); Hematocrit 41.7 % (37.0-47.0); Hemoglobin 13.7 g/dl (12.0-16.0); Imm Gran Abs Auto 0.02 X10*3/uL (0.00-0.03); Imm Gran Pct Auto 0.2 % (0.0-0.4); Lymphocytes Absolute Auto 1.7 X10*3/uL (1.2-4.9); Lymphocytes Percent Auto 18.8 % (20-40); Mean Corpuscular HGB Conc 32.9 g/dl (31.0-35.0); Mean Corpuscular Hemoglobin 28.5 pg (27.0-33.0); Mean Corpuscular Volume 86.9 fL (80.0-98.0); Mean Platelet Volume 10.4 fL (9.4-12.3); Monocytes Absolute Auto 0.5 X10*3/uL (0.1-1.2); Monocytes Percent Auto 5.3 % (2-11); Neutrophils Absolute Auto 6.4 x10*3/uL (2.0-8.3); Neutrophils Percent Auto 72.3 % (45-73); Platelet Count 391 X10*3/uL (160-400); Red Cell Distribution Width 13.1 % (11.0-16.0); White Blood Count 8.8 X10*3/uL (4.8-10.8)
[2024-02-03 16:28] LABS: Prothrombin Time 12.5 SEC (11.1-13.3)
[2024-02-03 16:31] LABS: Partial Thromboplastin Time 29.2 SEC (26.0-36.8)
[2024-02-03 17:06] LABS: Anion Gap 13 (12-20); Blood Urea Nitrogen 11 mg/dL (9-16); Calcium 9.7 mg/dL (8.4-10.2); Carbon Dioxide 28 mmol/L (22-29); Chloride 102 mmol/L (96-108); Estimated Glomerular Filt Rate > 60; Glucose Random 97 mg/dL (60-115); Potassium 3.7 mmol/L (3.3-5.1); Sodium 139 mmol/L (135-145)
[2024-02-04 20:43] LABS: C. trachomatis RNA TMA NOT DETECTED (NOT DETECTED); N. gonorrhoeae RNA TMA NOT DETECTED (NOT DETECTED)
== END 2024-02-03 15:38 | disposition home or self-care (01) ==
LOC: HO.HHCL 15:37
PROVIDERS: Visit Provider Internal Medicine
DX: N89.8 Other specified noninflammatory disorders of vagina (principal); Z01.818 Encounter for other preprocedural examination
CPT/HCPCS: 36415; 80048; 81513; 84443; 85025; 85610; 85730; 87491; 87591

== ENCOUNTER 2024-02-11 18:05 | Outpatient (REF) | payer MEDICAID, SELFPAY ==
[2024-02-12 10:59] LABS: BV Int Neg Control Negative (Negative); BV Int Pos Control Positive (Positive)
== END 2024-02-11 18:06 | disposition home or self-care (01) ==
LOC: HO.HHCLNP 18:05
PROVIDERS: Visit Provider Student in an Organized Health Care Education/Training Program
DX: N89.8 Other specified noninflammatory disorders of vagina (principal)
CPT/HCPCS: 87480; 87510; 87660

== ENCOUNTER 2024-04-01 10:01 | Outpatient (AMB) | payer MEDICAID, SELFPAY ==
--- NOTE | 2024-04-01 10:05 | A.OFFVIS_ITS ---
Vital Signs 04/01/24 10:23 Height 5 ft 2 in Weight 175 lb BMI 32.0 BP 123/60 Blood Pressure Location Lt brachial Position Sitting Pulse 56 Intake Visit Reasons: umbilical wound dehiscence Intake Note: Patient is seen in office for evaluation and treatment of umbilical wound dehiscence. Pt c/o: had tummy tuck [place] on 02/2023, 2 wks post surgery, feel pain and discomfort and has an open area, has some bloody discharge, minimal redness River Rafting Guide Required: Yes River Rafting Guide Language: Pizzamaker Services: River Rafting Guide Present River Rafting Guide Name: Mary BORDEN Information Interpreted: non-clinical & clinical Electrical Instrument Technician: Electrical Instrument Technician Present Accompanied by: Self / Same As Patient Allergies aspirin [Aspirin] Allergy (Unknown, Verified 09/05/23 07:56) RASH Medication List - Last Reconciled 04/01/24 by Naeem Cruz MD cyclobenzaprine 10 mg PO TID PRN meloxicam 15 mg PO DAILY metronidazole 500 mg PO BID nystatin 1 appl topical BID HPI Comments Details: 33-year-old female patient presenting for wound examination following tummy tuck surgery performed in [place] in 02/22/2024. Information regarding the surgery is not available at the time of this visit. Surgical evaluation is requested for dehiscence of her umbilical wound. She reports occasional bleeding from the incision. She also reports that she is unable to sit due to her buttock surgery as well. [facility] Medical History Acute UTI Surgical History Hx laparoscopic cholecystectomy Hx of section History of abdominoplasty (~02/2023) Social History Alcohol intake: never Patient Tobacco Use Status: Never used Tobacco Review of Systems Const All systems reviewed & are unremarkable except as noted in HPI and below Physical Exam Vital Signs: Last Vital Signs Pulse 56 04/01/24 10:23 BP 123/60 04/01/24 10:23 BMI result Body Mass Index 32.0 Const General: comfortable Nutritional Appearance: well nourished Orientation/consciousness: patient oriented x3 Resp Effort & Inspection: normal respiratory effort GI Other: Umbilical incision is completely healed with a small amount of granulation tissue noted at the 07:00 o'clock location. Within the umbilicus no open wound could be identified although the skin appeared irritated suggestive of a cutaneous fungal infection. Skin Other: As noted in the abdomen above. Neuro General: patient oriented x3 Extrem Other: Compressive garments on lower extremities. 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 Patient has no information regarding the surgery and has no follow-up planned for the surgeon. Review of the umbilicus reveals no open wound at this time. It does appear that she has a fungal skin infection within the depths of the umbilicus which would benefit from nystatin cream. I would recommend using plain gauze rather than nonadherent gauze which may hold moisture into the wound. She should change the dressings least twice daily. She should follow up as needed. Medications: New nystatin 1 appl topical BID 15 grams 0RF B36.9 - Superficial mycosis, unspecified Coding Level of Care Code New Pt Level 4 (20092) Diagnoses Fungal skin infection B36.9
[2024-04-01 10:23] VITALS: BP 123/60; PULSE 56; BMI 32.0
== END 2024-04-01 10:23 | disposition home or self-care (01) ==
PROVIDERS: PCP Internal Medicine; Referring Provider Emergency Medicine; Visit Provider Surgery
DX: T81.31XA Disruption of external operation (surgical) wound, not elsewhere classified, initial encounter (principal); B36.9 Superficial mycosis, unspecified
CPT/HCPCS: 99204

== ENCOUNTER → 2024-04-01 10:01 | Outpatient (BNVA) | payer MEDICAID, SELFPAY | PROVIDERS: PCP Internal Medicine; Referring Provider Emergency Medicine; Visit Provider Surgery | DX: B36.9 Superficial mycosis, unspecified (principal) | CPT/HCPCS: 99202 ==

== ENCOUNTER 2024-05-18 12:57 | Outpatient (REF) | payer MEDICAID, SELFPAY ==
[2024-05-18 16:21] LABS: MANUAL DIFF FLAG NO
[2024-05-18 16:30] LABS: Basophils Percent Auto 0.6 % (0-2); Eosinophils Absolute Auto 0.2 X10*3/uL (0.0-0.4); Eosinophils Percent Auto 3.4 % (0-4); Hematocrit 39.5 % (37.0-47.0); Hemoglobin 12.1 g/dl (12.0-16.0); Imm Gran Abs Auto 0.03 X10*3/uL (0.00-0.03); Imm Gran Pct Auto 0.5 % (0.0-0.4); Lymphocytes Absolute Auto 1.8 X10*3/uL (1.2-4.9); Lymphocytes Percent Auto 27.1 % (20-40); Mean Corpuscular HGB Conc 30.6 g/dl (31.0-35.0); Mean Corpuscular Hemoglobin 24.5 pg (27.0-33.0); Mean Platelet Volume 10.8 fL (9.4-12.3); Monocytes Absolute Auto 0.4 X10*3/uL (0.1-1.2); Neutrophils Absolute Auto 4.1 x10*3/uL (2.0-8.3); Neutrophils Percent Auto 62.4 % (45-73); Platelet Count 451 X10*3/uL (160-400); Red Blood Count 4.94 X10*6/uL (4.20-5.50); Red Cell Distribution Width 15.2 % (11.0-16.0); White Blood Count 6.5 X10*3/uL (4.8-10.8)
[2024-05-18 16:32] LABS: Estimated Average Glucose 105 mg/dL; Hemoglobin A1c % 5.3 % (<6.0)
[2024-05-18 16:56] LABS: Alanine Aminotransferase 18 U/L (0-31); Albumin Level 4.2 g/dL (3.5-5.0); Alkaline Phosphatase 75 U/L (39-117); Anion Gap 11 (12-20); Aspartate Amino Transferase 18 U/L (5-31); Bilirubin Total 0.2 mg/dL (0.0-1.0); Blood Urea Nitrogen 10 mg/dL (9-16); Calcium 9.7 mg/dL (8.4-10.2); Carbon Dioxide 25 mmol/L (22-29); Chloride 105 mmol/L (96-108); Cholesterol 183 mg/dL (<200); Estimated Glomerular Filt Rate > 60; Glucose Random 78 mg/dL (60-115); HDL Cholesterol 77 mg/dL (>40); Iron 29 mcg/dL (30-160); LDL Cholesterol Calculated 85 mg/dL (<100); Percent Iron Saturation 9 % (15-50); Potassium 4.2 mmol/L (3.3-5.1); Sodium 137 mmol/L (135-145); Total Iron Binding Capacity 330 mcg/dL (228-428); Total Protein 7.9 g/dL (6.5-8.0); Triglycerides 105 mg/dL (<150); Unsaturated Iron Binding 301 ug/dL
[2024-05-18 17:00] LABS: TSH reflex Free T4 1.55 uIU/mL (0.32-4.0)
[2024-05-18 18:37] LABS: Reflex LDLD? No
== END 2024-05-18 12:58 | disposition home or self-care (01) ==
LOC: HO.HHCL 12:57
PROVIDERS: Visit Provider Internal Medicine
DX: R42 Dizziness and giddiness (principal)
CPT/HCPCS: 36415; 80053; 80061; 83036; 83540; 84443; 85025

== ENCOUNTER 2024-07-12 11:45 | Emergency (ER) | payer MEDICAID, SELFPAY ==
--- NOTE | ~2024-07-12 | CT_ITS ---
EXAMINATION: CT HEAD WITHOUT CONTRAST CLINICAL INFORMATION: Dizziness for one week. COMPARISON: None TECHNIQUE: Contiguous axial imaging was performed from the skull base to vertex without intravenous administration of contrast. This CT examination was performed using dose optimization techniques as appropriate, variously including the following: *Automated exposure control *Adjustment of mA and/or kV according to patient size (this includes techniques or standardized protocols for targeted exams where dose is matched to indication/reason for exam; i.e. extremities or head) *Use of iterative reconstruction technique DLP: 573 mGy-cm FINDINGS: There is no evidence of acute intracranial hemorrhage or edematous territorial infarction. There is no abnormal attenuation within the brain parenchyma. Mejia-white matter differentiation is preserved. The ventricles are normal in size and configuration. No evidence for obstructive hydrocephalus. No abnormal mass effect or midline shift. No extra-axial fluid collections. No acute soft tissue or osseous abnormalities. The mastoid air cells and paranasal sinuses are clear. CT/CT head/brain wo IV con IMPRESSION: No evidence of acute intracranial hemorrhage or edematous territorial infarction. Electronically signed by: Chika Moran MD 07/12/2024 03:21 PM EDT
[2024-07-12 12:09] VITALS: BP 120/70; PULSE 67; RESP 18; TEMP 36.8; O2SAT 98; BMI 32.8
--- NOTE | 2024-07-12 12:12 | ECG_ITS ---
Test Reason : DIZZINESS Blood Pressure : / mmHG Vent. Rate : 064 BPM Atrial Rate : 064 BPM P-R Int : 124 ms QRS Dur : 072 ms QT Int : 390 ms P-R-T Axes : 068 058 046 degrees QTc Int : 402 ms Normal sinus rhythm with sinus arrhythmia Normal ECG When compared with ECG of 01-SEP-2023 07:33, No significant change was found Referred By: Ashwin Ramírez Electronically Signed By:EAGLE SMITH MD
--- NOTE | 2024-07-12 12:13 | ED.GENADULT ---
HPI - General Adult General Chief complaint: Dizziness Stated complaint: Dizziness, blurry vision History of Present Illness HPI narrative: Left before completion of treatment by ED provider Related Data Previous Rx's ?Medication ?Instructions ?Recorded meloxicam 15 mg tablet 15 mg PO DAILY #10 tabs 04/02/23 cyclobenzaprine 10 mg tablet 10 mg PO TID PRN muscle spasm #20 09/01/23 tabs metronidazole 500 mg tablet 500 mg PO BID #14 tabs 09/05/23 nystatin 100,000 unit/gram topical 1 appl topical BID #15 grams 04/01/24 cream Allergies Allergy/AdvReac Type Severity Reaction Status Date / Time aspirin [Aspirin] Allergy Unknown RASH Verified 07/13/24 07:57 PMFSH Past Medical History Medical History Acute UTI Surgical History Hx laparoscopic cholecystectomy Hx of section History of abdominoplasty (~02/2023) Social History Social History Alcohol intake: never Patient Tobacco Use Status: Never used Tobacco Smoked in Last 30 Days: No Use of substances other than those prescribed or required for medical reasons: No Advance Directives: No Do you have a plan to hurt others: No Plan Patient : No Physical Exam ED Vital Signs: BMI result Body Mass Index 32.8 Course Course Course Narrative: RME: done by LANIE Espinosa. 33-year-old female presents to ED for 1 week of dizziness described as the room is spinning and changes position of head also with headache. Patient does states history of migraine. Patient denies any recent head trauma or passing out. NIH score is 0. Negative for any neuro deficits. Negative Romberg. EKG labs ordered. Medical Decision Making Lab Data 07/12/24 12:28 07/12/24 12:28 Labs: Lab Results 07/12/24 Range/Units 12:28 WBC 8.1 (4.8-10.8) X10*3/uL RBC 4.66 (4.20-5.50) X10*6/uL Hgb 12.1 (12.0-16.0) g/dl Hct 37.0 (37.0-47.0) % MCV 79.4 L (80.0-98.0) fL MCH 26.0 L (27.0-33.0) pg MCHC 32.7 (31.0-35.0) g/dl RDW 18.6 H (11.0-16.0) % Plt Count 392 (160-400) X10*3/uL MPV 10.3 (9.4-12.3) fL Immature Gran % (Auto) 0.2 (0.0-0.4) % Neut % (Auto) 68.9 (45-73) % Lymph % (Auto) 21.5 (20-40) % [place] % (Auto) 5.4 (2-11) % Eos % (Auto) 3.3 (0-4) % Baso % (Auto) 0.7 (0-2) % Lymph # (Auto) 1.7 (1.2-4.9) X10*3/uL [place] # (Auto) 0.4 (0.1-1.2) X10*3/uL Eos # (Auto) 0.3 (0.0-0.4) X10*3/uL Baso # (Auto) 0.1 (0.0-0.2) X10*3/uL Abs Immat Gran (auto) 0.02 (0.00-0.03) X10*3/uL Absolute Neuts (auto) 5.6 (2.0-8.3) x10*3/uL Absolute Nucleated RBC 0.000 (0.0-0.012) X10*3/uL Nucleated RBC % (auto) 0.0 (0.0-0.2) /100WBC PT 11.1 (10.9-12.4) SEC INR 1.0 (0.9-1.1) APTT 28.7 (26.0-36.8) SEC Sodium 143 (135-145) mmol/L Potassium 3.5 (3.3-5.1) mmol/L Chloride 108 (96-108) mmol/L Carbon Dioxide 29 (22-29) mmol/L Anion Gap 10 L (12-20) BUN 12 (9-16) mg/dL Creatinine 0.75 (0.5-1.4) mg/dL Estim Creat Clear Calc 106.3 Estimated GFR > 60 Random Glucose 86 (60-115) mg/dL Calcium 9.0 D (8.4-10.2) mg/dL Total Bilirubin 0.2 (0.0-1.0) mg/dL AST 15 (5-31) U/L ALT 16 (0-31) U/L Alkaline Phosphatase 68 (39-117) U/L Troponin I High Sens < 2.7 (<3.5-17.0) ng/L Total Protein 6.9 (6.5-8.0) g/dL Albumin 3.9 (3.5-5.0) g/dL Beta HCG, Quant < 2 mIU/mL Discharge Plan Discharge Clinical Impression: Dizziness Patient Disposition: Left W/O Completing Treatment Prescriptions: No Action metronidazole 500 mg tablet 500 mg PO BID Qty: 14 0RF meloxicam 15 mg tablet 15 mg PO DAILY Qty: 10 0RF cyclobenzaprine 10 mg tablet 10 mg PO TID PRN (Reason: muscle spasm) Qty: 20 0RF nystatin 100,000 unit/gram cream 1 appl topical BID Qty: 15 0RF Discharge Date/Time: 07/12/24 23:06
[2024-07-12 12:35] LABS: MANUAL DIFF FLAG NO
[2024-07-12 12:38] LABS: Basophils Absolute Auto 0.1 X10*3/uL (0.0-0.2); Basophils Percent Auto 0.7 % (0-2); Eosinophils Absolute Auto 0.3 X10*3/uL (0.0-0.4); Eosinophils Percent Auto 3.3 % (0-4); Hemoglobin 12.1 g/dl (12.0-16.0); Imm Gran Abs Auto 0.02 X10*3/uL (0.00-0.03); Imm Gran Pct Auto 0.2 % (0.0-0.4); Lymphocytes Absolute Auto 1.7 X10*3/uL (1.2-4.9); Lymphocytes Percent Auto 21.5 % (20-40); Mean Corpuscular HGB Conc 32.7 g/dl (31.0-35.0); Mean Corpuscular Volume 79.4 fL (80.0-98.0); Mean Platelet Volume 10.3 fL (9.4-12.3); Monocytes Absolute Auto 0.4 X10*3/uL (0.1-1.2); Monocytes Percent Auto 5.4 % (2-11); Neutrophils Absolute Auto 5.6 x10*3/uL (2.0-8.3); Neutrophils Percent Auto 68.9 % (45-73); Platelet Count 392 X10*3/uL (160-400); Red Blood Count 4.66 X10*6/uL (4.20-5.50); Red Cell Distribution Width 18.6 % (11.0-16.0); White Blood Count 8.1 X10*3/uL (4.8-10.8)
[2024-07-12 12:44] LABS: Prothrombin Time 11.1 SEC (10.9-12.4)
[2024-07-12 12:47] LABS: Partial Thromboplastin Time 28.7 SEC (26.0-36.8)
[2024-07-12 13:00] LABS: Alanine Aminotransferase 16 U/L (0-31); Albumin Level 3.9 g/dL (3.5-5.0); Alkaline Phosphatase 68 U/L (39-117); Anion Gap 10 (12-20); Aspartate Amino Transferase 15 U/L (5-31); Bilirubin Total 0.2 mg/dL (0.0-1.0); Blood Urea Nitrogen 12 mg/dL (9-16); Carbon Dioxide 29 mmol/L (22-29); Chloride 108 mmol/L (96-108); Creatinine Clr Calc Pharmacy 106.3; Estimated Glomerular Filt Rate > 60; Glucose Random 86 mg/dL (60-115); Potassium 3.5 mmol/L (3.3-5.1); Sodium 143 mmol/L (135-145); Total Protein 6.9 g/dL (6.5-8.0)
[2024-07-12 13:04] LABS: HCG Quantitative < 2 mIU/mL; Troponin-I High Sensitivity < 2.7 ng/L (<3.5-17.0)
--- NOTE | 2024-07-12 23:06 | PC.NURSE ---
Pt no answer when called for reassessment.
== END 2024-07-12 23:06 | disposition left against medical advice (07) ==
LOC: HO.ED 22:30
PROVIDERS: Physician Assistant; Emergency Provider Emergency Medicine; PCP Internal Medicine
DX: R42 Dizziness and giddiness (principal); H53.8 Other visual disturbances; Z79.899 Other long term (current) drug therapy
CPT/HCPCS: 36415; 70450; 80053; 84484; 84702; 85025; 85610; 85730; 93005; 99283; 99284

== ENCOUNTER → 2024-07-12 12:12 | Outpatient (BNV) | payer MEDICAID, SELFPAY | PROVIDERS: PCP Internal Medicine; Visit Provider Internal Medicine Cardiovascular Disease | DX: R42 Dizziness and giddiness (principal) | CPT/HCPCS: 93010 ==

== ENCOUNTER 2024-07-13 07:44 | Emergency (ER) | payer MEDICAID, SELFPAY ==
[2024-07-13 07:55] VITALS: BP 111/76; PULSE 56; RESP 19; TEMP 36.6; O2SAT 98; BMI 32.7
--- NOTE | 2024-07-13 09:24 | ED.DIZZY ---
HPI - Dizziness General Chief Complaint: Dizziness Stated Complaint: dizziness Time Seen by Provider: 07/13/24 09:09 Source: patient and old records reviewed Mode of arrival: ambulatory Limitations: no limitations History of Present Illness ED Provider: STACEY FUENTES Narrative: 33 yo female no sig PMH presented to triage yesterday with dizziness and headaches had normal labs and CT head presents again today with c/o feeling better but she still notes when she stands she feels initially dizzy. She denies CP/SOB, GIB symptoms. No travel, OCP use, recent URI symptoms or virus. She has been drinking water. The dizziness is worse when she stands. This has not happened to her before. MD elicited complaint: dizziness Onset (ago): day(s) (few) Timing: gradual onset and intermittent Severity: mild Description: lightheadedness Context: change in body position History of similar symptoms: No Exacerbating factors: change in body position Relieving factors: remaining still Associated symptoms: other (mild headache) Related Data Previous Rx's ?Medication ?Instructions ?Recorded meloxicam 15 mg tablet 15 mg PO DAILY #10 tabs 04/02/23 cyclobenzaprine 10 mg tablet 10 mg PO TID PRN muscle spasm #20 09/01/23 tabs metronidazole 500 mg tablet 500 mg PO BID #14 tabs 09/05/23 nystatin 100,000 unit/gram topical 1 appl topical BID #15 grams 04/01/24 cream Allergies Allergy/AdvReac Type Severity Reaction Status Date / Time aspirin [Aspirin] Allergy Unknown RASH Verified 07/13/24 07:57 Review of Systems Review of Systems: Constitutional : No Fever, No Chills, No Fatigue ENT/Mouth : No sore throat, No Rhinorrhea Eyes: No Eye Pain, No Swelling, No Redness Cardiovascular : No Chest Pain, No SOB, No Dyspnea on Exertion Respiratory : No Cough, No Sputum Gastrointestinal : No Nausea, No Vomiting, No Diarrhea, No abdominal Pain Genitourinary : No Dysuria, No Urinary Frequency, No Hematuria, Musculoskeletal : No joint pain, No Myalgias, No Joint Swelling Skin : No Skin Lesions, No rash Neuro : No Weakness, No Numbness, pos Dizziness, positive Headache All other systems reviewed and are negative [facility] Past Medical History Attestation statement: The following information was validated with the patient. Source: old records reviewed Medical History Acute UTI Surgical History Hx laparoscopic cholecystectomy Hx of section History of abdominoplasty (~02/2023) Social History Social History Alcohol intake: never Patient Tobacco Use Status: Never used Tobacco Advance Directives: No Do you have a plan to hurt others: No Plan Physical Exam Vital Signs: Vital Signs: Last Vital Signs Temp 98 F 07/13/24 07:55 Pulse 62 07/13/24 10:17 Resp 19 07/13/24 07:55 BP 107/66 07/13/24 10:17 Pulse Ox 98 07/13/24 07:55 O2 Del Method Room Air 07/13/24 07:55 BMI result Body Mass Index 32.7 Appearance: Alert. Oriented X3. No acute distress. Eyes: Pupils equal, round and reactive to light. ENT: Pharynx normal. normal TMs bilaterally Neck: Normal inspection. Neck supple. CVS: Normal heart rate and rhythm. Pulses normal. Respiratory: No respiratory distress. Breath sounds normal. Abdomen: Soft and nontender. Skin: Skin warm and dry. Normal skin color. Normal skin turgor. Extremities: No lower extremity edema. No calf ttp Neuro: Oriented X 3. No motor deficit. No sensory deficit. no ataxia no drift Course Course Course Narrative: negative orthostatics Medical Decision Making Medical Decision Making MDM Narrative: 33 yo female not toxic no neuro findings here with mild dizziness when standing no CP/SOB she is PERC negative, no signs of DVT on exam. She is not toxic - will need EKG and ortho VS had normal labs yesterday. Symptoms improving and only happening briefly when she stands. At this time plan to DC home if ortho neg and EKG normal with fluids and increased salt intake Differential Diagnosis Differential Diagnoses: The differential diagnosis associated with the presentation includes orthostatics, viral syndrome Admission/Observation Consideration of admission/observation: Escalation of care including admission/observation considered not toxic, no neuro findings at this time can be DC home with fluids and increased salt intake Independent Interpretation I performed an independent interpretation of an: EKG Interpretation: Rate: 55 Rhythm: sinus bradycardia [place]: normal Normal P waves. Normal MONICA. Normal QRS complex. ST T wave : inverted t wave V1, no STEMI qTC: 401 prior studies: no acute ischemia The study has been interpreted contemporaneously by me. . External Record Review External record reviewed: Outpatient record and Prior outpatient radiology Discharge Plan Discharge Clinical Impression: Dizziness Patient Disposition: Home, Self-Care Instructions: Dizziness (ED) Additional Instructions: take your time getting up drink plenty of fluids 60 ounces of water a day increase salt intake return for any woresning symptoms or concerns. Prescriptions: No Action metronidazole 500 mg tablet 500 mg PO BID Qty: 14 0RF meloxicam 15 mg tablet 15 mg PO DAILY Qty: 10 0RF cyclobenzaprine 10 mg tablet 10 mg PO TID PRN (Reason: muscle spasm) Qty: 20 0RF nystatin 100,000 unit/gram cream 1 appl topical BID Qty: 15 0RF Print Language: Sierra Leonean
--- NOTE | 2024-07-13 09:34 | ECG_ITS ---
Test Reason : DIZZINESS Blood Pressure : / mmHG Vent. Rate : 055 BPM Atrial Rate : 055 BPM P-R Int : 126 ms QRS Dur : 070 ms QT Int : 420 ms P-R-T Axes : 060 060 042 degrees QTc Int : 401 ms Sinus bradycardia with sinus arrhythmia Cannot rule out Anterior infarct , age undetermined Abnormal ECG When compared with ECG of 12-JUL-2024 12:14, No significant change was found Referred By: Yvonne Harper Electronically Signed By:EAGLE SMITH MD
[2024-07-13 10:16] VITALS: BP 109/53; PULSE 55
[2024-07-13 10:17] VITALS: BP 107/66; BP 111/69; PULSE 60; PULSE 62
[2024-07-13 10:37] VITALS: BP 107/66; PULSE 62; RESP 18; TEMP 36.6; O2SAT 98
== END 2024-07-13 10:38 | disposition home or self-care (01) ==
PROVIDERS: Emergency Provider Emergency Medicine; PCP Internal Medicine
DX: R42 Dizziness and giddiness (principal)
CPT/HCPCS: 93005; 99283; 99285

== ENCOUNTER → 2024-07-13 09:34 | Outpatient (BNV) | payer MEDICAID, SELFPAY | PROVIDERS: Emergency Provider Emergency Medicine; PCP Internal Medicine; Visit Provider Internal Medicine Cardiovascular Disease | DX: R42 Dizziness and giddiness (principal) | CPT/HCPCS: 93010 ==

== ENCOUNTER 2024-10-04 13:27 | Outpatient (REF) | payer MEDICAID, SELFPAY ==
[2024-10-04 15:01] LABS: Bacterial Vaginosis PCR NEGATIVE (Negative); Candida Group PCR NOT DETECTED (Not Detect); Candida glab krusei PCR NOT DETECTED (Not Detect); Trichomonas vaginalis PCR NOT DETECTED (Not Detect)
== END 2024-10-04 13:28 | disposition home or self-care (01) ==
LOC: HO.HHCLNP 13:27
PROVIDERS: Visit Provider Nurse Practitioner Primary Care
DX: R39.9 Unspecified symptoms and signs involving the genitourinary system (principal); N89.8 Other specified noninflammatory disorders of vagina
CPT/HCPCS: 0352U; 87086

== ENCOUNTER 2025-01-03 15:27 | Outpatient (REF) | payer MEDICAID, SELFPAY ==
[2025-01-03 16:09] LABS: MANUAL DIFF FLAG NO
[2025-01-03 16:41] LABS: Basophils Absolute Auto 0.1 X10*3/uL (0.0-0.2); Basophils Percent Auto 0.8 % (0-2); Eosinophils Absolute Auto 0.3 X10*3/uL (0.0-0.4); Hematocrit 38.9 % (37.0-47.0); Hemoglobin 12.8 g/dl (12.0-16.0); Imm Gran Abs Auto 0.03 X10*3/uL (0.00-0.03); Imm Gran Pct Auto 0.4 % (0.0-0.4); Lymphocytes Absolute Auto 1.8 X10*3/uL (1.2-4.9); Lymphocytes Percent Auto 23.2 % (20-40); Mean Corpuscular HGB Conc 32.9 g/dl (31.0-35.0); Mean Corpuscular Hemoglobin 28.7 pg (27.0-33.0); Mean Corpuscular Volume 87.2 fL (80.0-98.0); Mean Platelet Volume 10.4 fL (9.4-12.3); Monocytes Absolute Auto 0.4 X10*3/uL (0.1-1.2); Monocytes Percent Auto 5.7 % (2-11); Neutrophils Absolute Auto 5.1 x10*3/uL (2.0-8.3); Neutrophils Percent Auto 65.9 % (45-73); Platelet Count 386 X10*3/uL (160-400); Red Blood Count 4.46 X10*6/uL (4.20-5.50); White Blood Count 7.7 X10*3/uL (4.8-10.8)
[2025-01-03 18:00] LABS: Alanine Aminotransferase 17 U/L (0-31); Alkaline Phosphatase 67 U/L (39-117); Anion Gap 9 (12-20); Aspartate Amino Transferase 21 U/L (5-31); Bilirubin Total 0.2 mg/dL (0.0-1.0); Blood Urea Nitrogen 13 mg/dL (9-16); Calcium 9.3 mg/dL (8.4-10.2); Carbon Dioxide 26 mmol/L (22-29); Chloride 107 mmol/L (96-108); Estimated Glomerular Filt Rate > 60; Glucose Random 74 mg/dL (60-115); Iron 60 mcg/dL (30-160); Percent Iron Saturation 18 % (15-50); Potassium 3.7 mmol/L (3.3-5.1); Sodium 138 mmol/L (135-145); Total Iron Binding Capacity 328 mcg/dL (228-428); Total Protein 7.3 g/dL (6.5-8.0); Unsaturated Iron Binding 268 ug/dL
[2025-01-03 18:05] LABS: Ferritin 41 ng/mL (10-122); TSH reflex Free T4 1.29 uIU/mL (0.32-4.0); Vitamin D 25-OH Total 39.8 ng/mL (>30)
--- OUTSIDE RECORDS SUMMARY | 2025-01-03 18:22 | XMS_ITS | Encounter Summary ---
Author Organization [employer] Address [address] [place] [address] Care Team Providers Care Director Of Integrated Marketing Name Role Phone Ariadne Helton MD Primary Care Provide r Reason for Visit * Reason Onset Date Comments Nurse Triage 05/11/2024 Encounter Details Date Type Department Care Team ([facility] st Contact Info) Description 05/11/2024 Telephone [facility]INE [address] [place] [address] Ariadne Helton MD [address] [place] [address] Nurse Triage Social History Tobacco Use Types Packs/Day Years Used Date Smoking Tobacco: Never Passive Smoke Exposure: Never Smokeless Tobacco: Never Alcohol Use Standard Drinks/Week Comments Never 0 (1 standard drink = 0.6 oz pur e alcohol) Depression Answer Date Recorded Patient Health Questionnaire-9 Score 0 02/03/2024 Patient Health Questionnaire-9 Score 0 02/03/2024 Last PHQ-9: Questionnaire Data Not on file 0 02/03/2024 Housing Stability Answer Date Recorded What is your housing situation today? I have izzy tariq 07/31/[address] you li ve. Do you have problems with any of the following? None of the above 07/31/2023 Food Insecurity Answer Date Recorded Within the past 12 months, y ou worried that your food would run out before you got money to buy more: Never True 07/31/2023 Within the past 12 months,th e food you bought just didn't last and you didn't have enough money to get more: Never True Transportation Answer Date Recorded In the past 12 months, has l ack of transportation kept you from medical appts, meetings, work or from getting things needed for daily living? No 07/31/2023 Utilities Answer Date Recorded In the past 12 months, has t he electric, gas, oil or water company threatened to shut off services in your home? No 07/31/2023 Depression Answer Date Recorded Patient Health Questionnaire-2 Score 0 02/03/2024 Comments No Sex and Gender Information Value Date Recorded Sex Assigned at Female 08/04/2022 10:19 AM EDT Legal Sex Female 10:19 AM EDT Gender Identity Female 08/04/2022 10:19 AM EDT Sexual Orientation Choose not to disclose 2021 10:19 AM EDT documented as of this encounter Miscellaneous Notes * Telephone Encounter - Wanda Tovar RN - 05/11/2024 11:20 AM EDT Triage call with [facility] [place] [id number] Pt reports chronic dizziness for last 2-3 weeks. neg for vomiting, spinning sensation or fever. Pt reports drinking adequate liquids. Pt reports dizziness comes and goes. Other accompanying symptoms are headache, blurred vision and weakness at times. During call Pt denies dizziness but, reports tiredness. Pt reports the dizziness occurs with sitting or walking. Pt is given home care regarding fall prevention. Pt is offered to come to [facility] today but, declines and is requesting apt with PCP. ASK apt with Dr. Lamb, 05/18/24 @ 1115am. Pt agrees with this disposition and home care is reviewed. Insurance is verified as active prior to booking. Protocol Used: Dizziness (Adult) Protocol-Based Disposition: See in Office or Video Visit within 2 Weeks Positive Triage Question: * Dizziness not present now, but is a chronic symptom (recurrent or ongoing AND lasting > 4 weeks) * All higher-acuity triage questions were negative Care Advice Discussed: * Drink Fluids * Lie Down and Rest * Prevention - Dizziness * Reasons To Call Back - After 2 hours of rest and fluids And still feeling dizzy. - Passes out (faints). - You become worse. * Sit Up Slowly Before Standing * Telephone Encounter - Jenn Preston - 05/11/2024 10:35 AM EDT Symptom: Dizziness Outcome: Schedule an urgent appointment (within 4 hours) or talk to a nurse or provider soon Reason: Getting worse The caller accepted this outcome Please contact pt @ [phone] documented in this encounter Plan of Treatment Upcoming Encounters Date Type Department Care Team (Late st Contact Info) Description 01/24/2025 11:00 AM EDT Office Visit [facility] [address] [place] [address] Ariadne Helton MD [address] [place] [address] documented as of this encounter Visit Diagnoses Not on filedocumented in this encounter Additional Health Concerns Assessment Noted Time PHQ-9 Depression Total Score: 0 02/03/20 24 2:36 PM EDT documented as of this encounter Care Teams Director Of Integrated Marketing Relationship Specialty Start Date End Date Ariadne Helton MD [address] [place] [address] PCP - General Family Medicine 03/22/20 documented as of this encounter
--- OUTSIDE RECORDS SUMMARY | 2025-01-03 18:22 | XMS_ITS | Encounter Summary ---
Author Organization [employer] Address [address] [place] [address] Care Team Providers Care Loom Doffer Name Role Phone Ariadne Helton MD Primary Care Provide r Reason for Visit * Reason Onset Date Comments Nurse Triage 03/14/2024 Encounter Details Date Type Department Care Team ([facility] st Contact Info) Description 03/14/2024 Telephone [facility] MEDICINE [address] [place] [address] Ariadne Helton MD [address] [place] [address] Nurse Triage Social History Tobacco Use Types [...] encounter Miscellaneous Notes * Telephone Encounter - Nyla Carmona RN - 03/14/2024 1:40 PM EDT T/C to pt who states she has tummy tuck surgery on 02/25/24 in [place]. Pt states that at this timeshe is having some bleeding from incision and is changing her dressing BID which is usually stainedwith bright red blood but is not over saturated according to pt, but she feels that the incision has opened slightly. Pt reports some intermittent dizziness but denies fevers, abdominal pain, or any other symptoms at this time. Pt states that her jennifer are in tact other than 1 that fell out and has not felt dizzy since yesterday. Due to the nature of the symptoms RN recommends that pt come to the walk-in clinic for evaluation today as there are also no openings with the pts PCP this week (which is what the patient originally requested). Pt states that she does not want to go to walk-in clinic at this time, so RN recommends that pt go to the ER for evaluation of the incision site. Pt againdenies. RN stresses the importance of being evaluated today and pt then agrees to go to walk-in clinic today to be seen. Will forward to PCP as ADDI * Telephone Encounter - Morris Roger - 03/14/2024 1:27 PM EDT Symptom: Dizziness Outcome: Schedule an appointment to be seen within 24 hours Reason: Caller denied all higher acuity questions Green[place]ic Speaker Pt stated they have stitches on their stomach and she feels stitches are tearing and has caused some bleeding. documented in this encounter Plan of Treatment Upcoming Encounters Date Type Department Care Team (Late st Contact Info) Description 01/24/2025 11:00 AM EDT Office Visit [facility]INE [address] [place], [place] [phone] Ariadne Helton MD [address] [place] [address] documented as of this encounter Visit Diagnoses Not on filedocumented in this encounter Additional Health Concerns Assessment Noted Time PHQ-9 Depression Total Score: 0 02/03/20 24 2:36 PM EDT documented as of this encounter Care Teams Loom Doffer Relationship Specialty Start Date End Date Ariadne Helton MD [address] [place] [address] [phone] PCP - General Family Medicine 03/22/20 documented as of this encounter
--- OUTSIDE RECORDS SUMMARY | 2025-01-03 18:22 | XMS_ITS | Encounter Summary ---
Author Organization [employer] Address [address] [place] [address] Care Team Providers Care Lead Caster Helper Name Role Phone Ariadne Helton MD Primary Care Provide r Reason for Visit * Reason Onset Date Comments Error 12/01/2023 Encounter Details Date Type Department Care Team ([facility] st Contact Info) Description 12/01/[address] [facility] MEDICINE [address] [place] [address] Ariadne Helton MD [address] [place] [address] Error Social History Tobacco Use Types Packs/Day Years Used Date Smoking Tobacco: Never Passive Smoke Exposure: Never Smokeless Tobacco: Never Alcohol Use Standard Drinks/Week Comments Never 0 (1 standard drink = 0.6 oz pur e alcohol) Housing Stability Answer Date Recorded What is [...] Date Recorded Patient Health Questionnaire-2 Score 0 10/29/2022 Comments No Sex and Gender Information Value Date Recorded Sex Assigned at Female 08/04/2022 10:19 AM EDT Legal Sex Female 10:19 AM EDT Gender Identity Female 08/04/2022 10:19 AM EDT Sexual Orientation Choose not to disclose 2021 10:19 AM EDT documented as of this encounter Plan of Treatment Upcoming Encounters Date Type Department Care Team (Late st Contact Info) Description 01/24/2025 11:00 AM EDT Office Visit [facility] MED[facility]INE [address] [place] [address] Ariadne Helton MD [address] [place] [address] [phone] documented as of this encounter Visit Diagnoses Not on filedocumented in this encounter Care Teams Lead Caster Helper Relationship Specialty Start Date End Date Ariadne Helton MD [address] [place] [address] [phone] PCP - General Family Medicine 03/22/20 documented as of this encounter
--- OUTSIDE RECORDS SUMMARY | 2025-01-03 18:22 | XMS_ITS | Encounter Summary ---
Author Organization [employer] Address [address] [facility] [address] [place] [address] Care Team Providers Care Card Reader Name Role Phone Ariadne Helton MD Primary Care Provide r Reason for Visit * Reason Comments Headache Dizziness Encounter Details Date Type Department Care Team ([facility] st Contact Info) Description 01/03/2025 2:30 PM EDT Office Visit [facility] [address] [place] [address] Ariadne Helton MD [address] [place] [address] Dizziness (Primary Dx); Chronic migraine with aura and with status migrainosus, not intractable; Fatigue, unspecified type Social History Tobacco Use Types Packs/Day Years Used Date Smoking Tobacco: Never Passive Smoke Exposure: Never Smokeless Tobacco: Never Tobacco Cessation:Counseling Given: Not Answered Alcohol Use Standard Drinks/Week Comments Never 0 (1 standard drink = 0.6 oz pur e alcohol) Depression Answer Date Recorded Patient Health Questionnaire-9 Score 0 12/05/2024 Patient Health Questionnaire-9 Score 0 12/05/2024 Last PHQ-9: Questionnaire Data Not on file 0 12/05/2024 Housing Stability Answer Date Recorded What is your housing situation today? I have izzy tariq 12/05/[address] you li ve. Do you have problems with any of the following? None of the above 12/05/2024 Food Insecurity Answer Date Recorded Within the past 12 months, y ou worried that your food would run out before you got money to buy more: Never True 12/05/2024 Within the past 12 months,th e food you bought just didn't last and you didn't have enough money to get more: Never True 12/2024 Transportation Answer Date Recorded In the past 12 months, has l ack of transportation kept you from medical appts, meetings, work or from getting things needed for daily living? No 12/05/2024 Utilities Answer Date Recorded In the past 12 months, has t he electric, gas, oil or water company threatened to shut off services in your home? No 12/05/2024 Depression Answer Date Recorded Patient Health Questionnaire-2 Score 0 12/05/2024 Internet Access Answer Date Recorded Internet Access Q1 No 12/05/2024 Internet Access Q2 I do not want or need it 12/2024 Comments No Sex and Gender Information Value Date Recorded Sex Assigned at Female 08/04/2022 10:19 AM EDT Legal Sex Female 10:19 AM EDT Gender Identity Female 08/04/2022 10:19 AM EDT Sexual Orientation Choose not to disclose 2021 10:19 AM EDT documented as of this encounter Last Filed Vital Signs Vital Sign Reading Time Taken Comments Blood Pressure 116/71 01/03/2025 2:33 PM EDT Pulse 66 01/03/2025 2:33 PM EDT Temperature 36.3 ??C (97.4 ??F) 01/03/2025 2:33 PM ED T Respiratory Rate 18 01/03/2025 2:33 PM EDT Oxygen Saturation 99% 01/03/2025 2:33 PM EDT Inhaled Oxygen Concentration - - Weight 84.6 kg (186 lb 6.4 oz) 01/03/2025 2:33 P M EDT Height 154.9 cm (5' 1 ) 01/03/2025 2:33 PM EDT Body Mass Index 35.22 01/03/2025 2:33 PM EDT documented in this encounter Plan of Treatment Upcoming Encounters Date Type Department Care Team (Late st Contact Info) Description 01/24/2025 11:00 AM EDT Office Visit [facility] [address] [place] [address] Ariadne Helton MD [address] [place] [address] Scheduled Orders Name Type Priority Associated Diagnoses Orde r Schedule Vitamin B12 (Cobalamin) and Folate Panel, Serum Lab Routine Fatigue, unspecified type Expected: 01/03/2025, Expires: 01/03/2026 CBC auto differential Lab Routine Fatigue, unspecified type Expected: 01/03/2025 (Approximate), Expires: 01/03/2026 Hemoglobin A1c Lab Routine Fatigue, unspecified type Expected: 01/03/2025 (Approximate), Expires: 01/03/2026 Hepatitis Panel, General Lab Routine Fatigue, unspecified type Expected: 01/03/2025, Expires: 01/03/2026 HIV-1/2 Antigen and Antibodies, Fourth Generation, with Reflexes Lab Routine Fatigue, unspecified type Expected: 01/03/2025 (Approximate), Expires: 01/03/2026 SONYA Screen,IFA, with Reflex to Titer and Pattern Lab Routine Fatigue, unspecified type Expected: 01/03/2025 (Approximate), Expires: 01/03/2026 documented as of this encounter Procedures Procedure Name Priority Date/Time Associated Diagnosis Comments VITAMIN D,25-OH,TOTAL,IA Routine 01/03/2025 3:29 PM EDT Fatigue, unspecified type TSH W/REFLEX TO FT4 Routine 01/03/2025 3 :29 PM EDT Fatigue, unspecified type CBC WITH AUTO DIFFERENTIAL Routine 01/03/2025 3:29 PM EDT Fatigue, unspecified type IRON AND TOTAL IRON BINDING CAPACITY Routine 01/03/2025 3:29 PM EDT Fatigue, unspecified type FERRITIN Routine 01/03/2025 3:29 PM EDT Fatigue, unspecified type COMPREHENSIVE METABOLIC PANEL Routine 01/03/2025 3:29 PM EDT Fatigue, unspecified type documented in this encounter Results * Vitamin D, 25-Hydroxy, Total, Immunoassay (01/03/2025 3:29 PM EDT) Vitamin D 25-OH Total 39.8 >30 ng/mL [facility] Comment: Health Based Reference Values*< 20 ??ng/mL ??Koukowduk82-37 ng/mL ??Insufficient> 30 ??ng/mL ??Sufficient*Waleksa SMITH. N Engl J Med. 2007;357:266-280There is no well-established upper level of normal vitamin Dlevels. Some laboratories use 50 ng/mL as an upper limit ofnormal. However, toxicity is patient-dependent and may occurat any level. Careful correlation with the patient'spresentation is necessary and, if there is concern forvitamin D toxicity, treatment should be consideredirrespective of the serum level.Care must be taken in interpreting Vitamin D results fromdifferent laboratories and methodologies. ??Published datademonstrated that results from patients undergoinghemodialysis may show a negative bias when tested withvarious automated 25-OH vitamin D assays when compared toLC- MS/MS.When testing samples from patients whose predominant form ofVitamin D is Vitamin D2, such as patients receiving VitaminD2 supplementation, results that are subtherapeutic shouldbe confirmed with another method such as LC-MS/MS. Blood Venous blood specimen / Unknown 01/03/2025 3:29 PM EDT 01/03/2025 4:07 PM EDT us Ariadne Krueger MD LAB BLOOD ORDERABLES Final Result Performing Organization Address City/[facility]/ZIP Co de Phone Number [facility] [address] [place] [phone] * TSH with Reflex to Free T4 (01/03/2025 3:29 PM EDT) TSH reflex Free T4 1.29 0.32 - 4.0 uIU/mL [facility] Blood Venous blood specimen / Unknown 01/03/2025 3:29 PM EDT 01/03/2025 4:07 PM EDT us Ariadne Krueger MD LAB BLOOD ORDERABLES Final Result Performing Organization Address City/[facility]/ZIP Co de Phone Number [facility] [address] [place] [phone] * (ABNORMAL) Comprehensive Metabolic Panel (01/03/2025 3:29 PM EDT) Sodium 138 135 - 145 mmol/L [facility] Potassium 3.7 3.3 - 5.1 mmol/L [facility] Chloride 107 96 - 108 mmol/L [facility] Carbon Dioxide 26 22 - 29 mmol/L [facility] Anion Gap 9(L) 12 - 20 [facility] Urea Nitrogen (BUN) 13 9 - 16 mg/dL [facility] Creatinine, Serum 0.67 0.5 - 1.4 mg/dL [facility] Estimated Glomerular Filt Rate >60 [facility] Comment:Chronic Kidney Disea se: Estimated GFR < 60 mL/min/1.36t4Vfmmrd Kidney Disease: Estimated GFR < 15 mL/min/1.73m2 Glucose 74 60 - 115 mg/dL [facility] Calcium 9.3 8.4 - 10.2 mg/dL [facility] Bilirubin, Total 0.2 0.0 - 1.0 mg/dL [facility] Aspartate Amino Transferase 21 5 - 31 U/L [facility] Alanine Aminotransferase 17 0 - 31 U/L [facility] Total Protein 7.3 6.5 - 8.0 g/dL [facility] Albumin Level 4.0 3.5 - 5.0 g/dL [facility] Alkaline Phosphatase 67 39 - 117 U/L [facility] Blood Venous blood specimen / Unknown 01/03/2025 3:29 PM EDT 01/03/2025 4:07 PM EDT us Ariadne Krueger MD LAB BLOOD ORDERABLES Final Result [facility] [address] [place] [phone] * Ferritin (01/03/2025 3:29 PM EDT) Pathologist [facility] Ferritin 41 10 - 122 ng/mL [facility] Blood Venous blood specimen / Unknown 01/03/2025 3:29 PM EDT 01/03/2025 4:07 PM EDT us Ariadne Krueger MD LAB BLOOD ORDERABLES Final Result Performing Organization Address [facility] Co de Phone Number [facility] [address] [place] [phone] * Iron And Total Iron Binding Capacity (01/03/2025 3:29 PM EDT) Iron 60 30 - 160 mcg/dL [facility] Total Iron Binding Capacity 328 228 - 428 mcg/dL [facility] Percent Iron Saturation 18 15 - 50 % [facility] Unsaturated Iron Binding 268 ug/dL [facility] Blood Venous blood specimen / Unknown 01/03/2025 3:29 PM EDT 01/03/2025 4:07 PM EDT us Ariadne Krueger MD LAB BLOOD ORDERABLES Final Result Performing Organization Address [facility] de Phone Number [facility] [address] [place] [phone] * CBC auto differential (01/03/2025 3:29 PM EDT) White Blood Count 7.7 4.8 - 10.8 X10*3/uL [facility] Red Blood Count 4.46 4.20 - 5.50 X10*6/uL [facility] Hemoglobin 12.8 12.0 - 16.0 g/dl [facility] Hematocrit 38.9 37.0 - 47.0 % [facility] Mean Corpuscular Volume 87.2 80.0 - 98.0 fL [facility] Mean Corpuscular Hemoglobin 28.7 27.0 - 33.0 pg [facility] Mean Corpuscular HGB Conc 32.9 31.0 - 35.0 g/dl [facility] Red Cell Distribution Width 14.0 11.0 - 16.0 % [facility] Platelet Count 386 160 - 400 X10*3/uL [facility] Mean Platelet Volume 10.4 9.4 - 12.3 fL [facility] Neutrophils Percent Auto 65.9 45 - 73 % [facility] Imm Gran Pct Auto 0.4 0.0 - 0.4 % [facility] Lymphocytes Percent Auto 23.2 20 - 40 % [facility] Monocytes Percent Auto 5.7 2 - 11 % [facility] Eosinophils Percent Auto 4.0 0 - 4 % [facility] Basophils Percent Auto 0.8 0 - 2 % [facility] NRBC Pct Auto 0.0 0.0 - 0.2 /100WBC [facility] Neutrophils Absolute Auto 5.1 2.0 - 8.3 x10*3/uL [facility] Imm Gran Abs Auto 0.03 0.00 - 0.03 X10*3/uL [facility] Lymphocytes Absolute Auto 1.8 1.2 - 4.9 X10*3/uL [facility] Monocytes Absolute Auto 0.4 0.1 - 1.2 X10*3/uL [facility] Eosinophils Absolute Auto 0.3 0.0 - 0.4 X10*3/uL [facility] Basophils Absolute Auto 0.1 0.0 - 0.2 X10*3/uL [facility] NRBC Abs Auto 0.000 0.0 - 0.012 X10*3/uL [facility] Blood Venous blood specimen / Unknown 01/03/2025 3:29 PM EDT 01/03/2025 4:07 PM EDT us Ariadne Krueger MD LAB BLOOD ORDERABLES Final Result [facility] [address] [place] [phone] documented in this encounter Visit Diagnoses Diagnosis Dizziness- Primary Dizziness and giddiness Chronic migraine with aura and with status migrainosus, not intractable Fatigue, unspecified type documented in this encounter Additional Health Concerns Assessment Noted Time PHQ-9 Depression Total Score: 0 12/06/19 25 10:39 AM EST documented as of this encounter Care Teams Card Reader Relationship Specialty Start Date End Date Ariadne Helton MD [address] [place] [phone] PCP - General Family Medicine 03/22/20 documented as of this encounter
--- OUTSIDE RECORDS SUMMARY | 2025-01-03 18:22 | XMS_ITS | Encounter Summary ---
Author Organization [employer] Address [address] [place] [address] Care Team Providers Care Dimmer Board Operator Name Role Phone Ariadne Helton MD Primary Care Provide r Encounter Details Date Type Department Care Team (Latest Contact Info) Description 01/03/2025 Travel Social History Tobacco Use Types Packs/Day Years [...] Description 01/24/2025 11:00 AM EDT Office Visit [facility] [address] [place] [address] Ariadne Helton MD [address] [place] [phone] documented as of this encounter Visit Diagnoses Not on filedocumented in this encounter Additional Health Concerns Assessment Noted Time PHQ-9 Depression Total Score: 0 12/06/19 25 10:39 AM EST documented as of this encounter Care Teams Dimmer Board Operator Relationship Specialty Start Date End Date Ariadne Helton MD [address] [place] [phone] PCP - General Family Medicine 03/22/20 documented as of this encounter
--- OUTSIDE RECORDS SUMMARY | 2025-01-03 18:22 | XMS_ITS | Encounter Summary ---
Author Organization [employer] Address [address] 7[address] [place] [address] Care Team Providers Care Cook Cashier Food Prep Name Role Phone Ariadne Helton MD Primary Care Provide r Reason for Visit * Reason Comments Med Refill Encounter Details Date Type Department Care Team ([facility] st Contact Info) Description 10/09/2023 Refill [facility] [address] [place] [address] Sangita Watt MD [address] [place] [address] Social History Tobacco Use Types Packs/Day Years Used Date Smoking Tobacco: Never Passive Smoke Exposure: Never Smokeless Tobacco: Never Alcohol Use Standard Drinks/Week Comments Never 0 (1 standard drink = 0.6 oz pur e alcohol) Housing Stability Answer Date Recorded What is your housing situation today? I have izzydevorah tariq 07/31/[address] you [...] encounter Miscellaneous Notes * Telephone Encounter - Sangita Watt MD - 10/12/2023 9:36 AM EST Approving, but needs appt for additional refills. documented in this encounter Plan of Treatment Upcoming Encounters Date Type Department Care Team (Late st Contact Info) Description 01/24/2025 11:00 AM EDT Office Visit [facility] [address] [place] [address] Ariadne Helton MD [address] [place] [address] documented as of this encounter Visit Diagnoses Not on filedocumented in this encounter Care Teams Cook Cashier Food Prep Relationship Specialty Start Date End Date Ariadne Helton MD [address] [place] [address] PCP - General Family Medicine 03/22/20 documented as of this encounter
--- OUTSIDE RECORDS SUMMARY | 2025-01-03 18:22 | XMS_ITS | Encounter Summary ---
Author Organization [employer] Address [address] [place] [address] Care Team Providers Care Photo Checker And Assembler Name Role Phone Ariadne Helton MD Primary Care Provide r Reason for Visit * Reason Onset Date Comments triage 10/14/2022 Encounter Details Date Type Department Care Team ([facility] st Contact Info) Description 10/14/2022 Telephone [facility] [address] [place] [address] Ariadne Helton MD [address] [place] [address] triage Social History Tobacco Use Types Packs/Day Years Used Date Smoking Tobacco: Never Assessed Comments Unknown Sex and Gender Information Value Date Recorded Sex Assigned at Female 08/04/2022 10:19 AM EDT Legal Sex Female 10:19 AM EDT Gender Identity Female 08/04/2022 10:19 AM EDT Sexual Orientation Choose not to disclose 2021 10:19 AM EDT documented as of this encounter Miscellaneous Notes * Telephone Encounter - Wanda Tovar RN - 10/14/2022 1:14 PM EST Triage call with [employer] [facility] Sales Counselor ID [id number]. Pt reports right shoulder pain for last month. Pt originally injured right shoulder in Aug when a light fixture fell from ceiling hitting right arm but, all tests were clear of damage and pain has persisted. Pt reports some swelling on right shoulder , no redness or numbness. Pain extends to elbow and now right side of neck. Pt describes limited ROM. Pt has been taking tylenol with little effect and using ice/heat. 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 appt with Dr. Barrientos 10/23 @ 1215pm Insurance is verified as active prior to booking. Protocol Used: Shoulder Pain (Adult) Protocol-Based Disposition: See in Office or Video Visit within 2 Weeks Video visit not offered Positive Triage Question: * Shoulder pain is a chronic symptom (recurrent or ongoing AND present > 4 weeks) * All higher-acuity triage questions were negative Care Advice Discussed: * Reassurance and Education - Shoulder Pain * Pain Medicines * Pain Medicines - Extra Notes and Warnings * Reasons To Call Back - Chest pain or difficulty breathing occurs - Moderate pain (e.g., interferes with normal activities) lasts over 3 days - Mild pain lasts over 7 days - You become worse * Use a Cold Pack for Pain * Use Heat on Area After 48 Hours * Telephone Encounter - Myron Kev - 10/14/2022 12:30 PM EST Symptoms: Arm Pain - Not From Injury, Pain - Severe, Neck Pain - Not From Injury Outcome: Talk to a nurse or provider within 15 minutes Reason: Weakness of the arm The caller accepted this outcome documented in this encounter Plan of Treatment Upcoming Encounters Date Type Department Care Team (Late st Contact Info) Description 01/24/2025 11:00 AM EDT Office Visit [facility] [address] [place] [address] Ariadne Helton MD [address] [place] [address] documented as of this encounter Visit Diagnoses Not on filedocumented in this encounter Care Teams Photo Checker And Assembler Relationship Specialty Start Date End Date Ariadne Helton MD [address] [place] [phone] PCP - General Family Medicine 03/22/20 documented as of this encounter
--- OUTSIDE RECORDS SUMMARY | 2025-01-03 18:22 | XMS_ITS | Encounter Summary ---
Author Organization [employer] Address [address] [facility] 7t [place] [address] Care Team Providers Care Stave Bolt Equalizer Name Role Phone Ariadne Helton MD Primary Care Provide r Reason for Visit * Reason Onset Date Comments Nurse Triage 01/03/2025 Encounter Details Date Type Department Care Team ([facility] st Contact Info) Description 01/03/2025 Telephone [facility] [address] [place] [address] Ariadne Helton MD [address] [place] [address] Nurse Triage Social History Tobacco Use Types [...] encounter Miscellaneous Notes * Telephone Encounter - Fina Rojas LPN - 01/03/2025 8:48 AM EDT Triage call returned with Elyssa Art. Patient reports dizziness x 1 week. Worsening off balance. Occurs all day. Migraines nearly daily. Has started at the gym and now is taking some Multivitamins. No nausea or vomiting. Has not been working due to migraines. Has no reported numbness or weakness. Unable to check BP at home. Fluid intake is good per report. No fainting. Disposition reviewed and patient in agreement with plan. ASK/PCP today at 2pm. Protocol Used: Dizziness (Adult) Protocol-Based Disposition: Go to Office or Video Visit Now Positive Triage Question: * Spinning or tilting sensation (vertigo) present now * All higher-acuity triage questions were negative Care Advice Discussed: * Drink Fluids * Reasons To Call Back - After 2 hours of rest and fluids and you are still feeling dizzy - You pass out (faint) or are too weak to stand - You become worse * Telephone Encounter - Shavon Aguilar - 01/03/2025 8:41 AM EDT Symptom: Dizziness Outcome: Schedule an urgent appointment (within 4 hours) or talk to a nurse or provider soon Reason: Started within the past 3 days The caller accepted this outcome. [phone] documented in this encounter Plan of Treatment Upcoming Encounters Date Type Department Care Team (Late st Contact Info) Description 01/24/2025 11:00 AM EDT Office Visit [facility] [address] [place] [address] Ariadne Helton MD [address] [place] [address] documented as of this encounter Visit Diagnoses Not on filedocumented in this encounter Additional Health Concerns Assessment Noted Time PHQ-9 Depression Total Score: 0 12/06/19 25 10:39 AM EST documented as of this encounter Care Teams Stave Bolt Equalizer Relationship Specialty Start Date End Date Ariadne Helton MD [address] [place] [phone] PCP - General Family Medicine 03/22/20 documented as of this encounter
--- OUTSIDE RECORDS SUMMARY | 2025-01-03 18:22 | XMS_ITS | Clinical Summary ---
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 28 g 08/14/20 23 Active fluconazole (Diflucan) 150 MG tabletIndicatio ns:Vaginal discharge Take one tablet then after 72hrs take another tablet 2 tablet 12/22/19 24 Active bacitracin-poly myxin b (Polysporin) ointment Apply topically 2 times daily. Apply to affected area daily 30 g 03/16/20 24 Active Blood Pressure Monitoring (Blood Pressure Cuff) miscIndications :Temporary high blood pressure 1 each Once daily. 1 each 05/18/20 24 Active minoxidil (Loniten) 2.5 MG tabletIndicatio ns:Androgenetic alopecia Take 1 tablet (2.5 mg) by mouth Once per day. 90 tablet 3 07/08/20 24 Active ketoconazole (NIZOral) 2 % shampooIndicati ons:Seborrheic dermatitis Apply topically 2 (two) times a week. 120 mL 3 07/11/20 24 Active ascorbic acid (Vitamin C) 500 MG tabletIndicatio ns:Iron deficiency Take 1 tablet (500 mg) by mouth every other day. 15 tablet 2 07/12/20 24 025 Active ferrous gluconate (Fergon) 324 (38 Fe) MG tabletIndicatio ns:Iron deficiency Take 1 tablet (324 mg) by mouth every other day. 15 tablet 2 07/12/20 24 025 Active ibuprofen 400 MG tablet Take 1 tablet (400 mg) by mouth every 6 (six) hours if needed for moderate pain or fever for up to 30 doses. 30 tablet 07/12/20 24 Active SUMAtriptan (Imitrex) 50 MG tabletIndicatio ns:Migraine with aura and without status migrainosus, not intractable Take 1 tablet (50 mg) by mouth 1 (one) time if needed for migraine. May repeat dose once in 2 hours if no relief. Do not exceed 2 doses in 24 hours. 9 tablet 1 12/06/19 25 Active amitriptyline (Elavil) 10 MG tabletIndicatio ns:Chronic migraine with aura and with status migrainosus, not intractable Take 1 tablet (10 mg) by mouth at bedtime. 30 tablet 1 01/04/20 25 025 Active meclizine (Antivert) 25 MG tabletIndicatio ns:Dizziness Take 1 tablet (25 mg) by mouth if needed in the morning, at noon, and at bedtime for dizziness for up to 10 days. 30 tablet 01/04/20 25 025 Active SUMAtriptan (Imitrex) 50 MG tablet Take 1 tablet (50 mg) by mouth 1 (one) time if needed for migraine. May repeat dose once in 2 hours if no relief. Do not exceed 2 doses in 24 hours. 9 tablet 07/12/20 24 025 Discontinued(Re order (will not trigger notification to Pharmacy)) Active Problems Problem Noted Date Diagnosed Date Chronic migraine with aura 01/03/2025 Fatigue 01/03/2025 Right knee injury 12/05/2024 Assessment & Plan (12/05/2024 11:15 AM EST): I will wait for MRI results Referral for orthopedics and PT will be done today Alternate acetaminophen and ibuprofen PRN Elevate knee apply ice and rest FMLA paper work will be fill out Sprain of medial collateral ligament of right kn ee 11/23/2024 Assessment & Plan (12/26/2024 1:58 PM EDT): Pt with right knee strain which occurred at work, work is physical and pt cannot currently complete responsibilities without pain, Referral to ortho Continue PT Note written for work, PCP aware, 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 Iron deficiency 05/19/2024 Temporary high blood pressure 05/18/2024 Dizziness 05/18/2024 Assessment & Plan (05/18/2024 4:18 PM EDT): Drink plenty of water avoid dehydration Change positions slowly ENT and neurology referral Labs ordered F/u in 2 weeks televisit S/P abdominoplasty 04/04/2024 Assessment & Plan (04/04/2024 3:11 PM EDT): [facility] paperwork should reflect date to of return to work 06/07/2024 Migraine with aura and witho ut status migrainosus, not intractable 02/03/2024 Assessment & Plan (04/04/2024 4:30 PM EDT): I advise to avoid migraine triggers like red wine, chocolate, cheese, strong perfumes Assessment & Plan (02/05/2024 9:37 AM EDT): I advise to avoid migraine triggers like red wine, chocolate, cheese, strong perfumes I will try excedrin migraines RTC 2 months after coming back from her trip UTI symptoms 01/19/2024 Assessment & Plan (01/19/2024 10:11 AM EDT): I advise increase water intake, do not hold urine Macrobid prescribed today I did UA and I will send sample for culture Lower urinary tract symptoms (LUTS) 12/22/2023 Assessment & Plan (12/22/2023 9:41 AM EDT): N/A. UA normal. Acute candidiasis of vulva and vagina 12/22/2023 Assessment & Plan (12/22/2023 9:42 AM EDT): -UA normal. Discharge probably related to vaginal candidiasis. -Rx Diflucan x1 + Lotrimin cream to vulva area as needed. -Recommended against using vaginal douche, panty liners. Encounter for screening for cervical cancer 10/06 Assessment & Plan (10/28/2023 4:33 PM EST): Patient will be contacted with results Hemorrhoids 08/14/2023 Hair loss 08/14/2023 Class 2 obesity due to exces s calories without serious comorbidity in adult 08/14/2023 Pelvic pain 07/31/2023 Assessment & Plan (07/31/2023 5:15 PM EDT): Pt with 4 days of ongoing lower abd pain ,vaginal discharge and reported some urinary symptoms,afebrile w normal VS On exam + CTM and bimanual exam ,also noted muco-purulent discharge. Will tx empirically as for possible mild PID -gave here today CTX 500 mg IM x1 -px doxycycline PO 100 BID x 14 days -px metronidazole PO 500 BID x 14 days -sent today to labs self collected surewab ,Ch/Gn ,UA w reflex,CBC,syphilis ,HIV test-will call pt w lab results -alarm signs and symptoms discussed w pt -tylenol prn Encounter for preventative adult health care exa mination 04/08/2023 Assessment & Plan (04/08/2023 11:49 AM EDT): Please refer to HPI Vaginal discharge 04/08/2023 Assessment & Plan (02/05/2024 9:36 AM EDT): BV swab today I will treat empirically with metrogel Assessment & Plan (01/19/2024 10:10 AM EDT): BV swab done at the office I will treat empirically with metronidazole I will call her as soon as I have results Surgical wound present 02/06/2023 Overview (02/06/2023): No evidence of infection. Well healing granulation tissue. Recommend to keep area dry at night. Do not use any ABX cream. Picture was taken, if any changes in symptoms please let us know. Assessment & Plan (02/06/2023 10:46 AM EDT): No evidence of infection. Well healing granulation tissue. Recommend to keep area dry at night. Do not use any ABX cream. Picture was taken, if any changes in symptoms please let us know. Preop examination 01/02/2023 Assessment & Plan (02/05/2024 9:42 AM EDT): RCRI score is 0, which is a 3.9% risk Patient is low risk for procedure, she is clear for surgery I advise NPO after midnight the day of the procedure Assessment & Plan (01/02/2023 2:03 PM EDT): Anabel is here today for pre-operative evaluation. Reports no sx of CP, SOB, MELLO, at rest or with exertion. No paroxsysmal nocturnal orthopnea, LE swelling or palpitations. No h/o CVD, diabetes, kidney disease, recent anticoagulant or antithrombotic use, personal h/o coagulopathy. No allergies to iodine, latex or tape. Anabel reports functional capacity of 4 METS. Can run across street or walk up flight of stairs without SOB or CP. RCRI score is 0, procedure should proceed as schedule Sprain of shoulder, right 10/29/2022 Assessment & Plan (10/29/2022 9:58 AM EST): Has residual weakness from rotator cuff/r/o shoulder sprain. Use tylenol 500mg for 1 week prn. Discussed with patient at length the importance of completing PT, new Referral was put in place. Recommended to come to acupuncture clinic. FU in 3 months. Pain of breast 12/29/2018 Constipation 11/15/2018 Large breasts 03/24/2017 Resolved Problems Problem Noted Date Diagnosed Date Resolved Date Blurry vision 04/04/2024 08/05/2024 Alopecia 08/14/2023 08/14/2023 Encounters Date Type Department Care Team Description 01/03/2025 2:30 PM EDT Office Visit [facility] [address] [place] [address] [phone] Ariadne Helton MD Dizziness (Primary Dx); Chronic migraine with aura and with status migrainosus, not intractable; Fatigue, unspecified type 01/03/2025 Travel 01/03/2025 Telephone [facility] [place] [address] Ariadne Helton MD Nurse Triage 12/16/2024 Population Health Risk Score [facility] ([facility]) Department [address] [place] [phone] Provider, Population Health Generic 12/06/2024 Telephone [facility] [place] [address] Ariadne Helton MD FMLA (I called the patient, regarding a FMLA application. I informed her that the application is complete, but it cannot be faxed because she needs to sign the release of information. She stated that she will come to [facility] at 3:00 pm today to sign the release, and request a copy of the application.) 12/05/2024 10:45 AM EST Office Visit [facility] [place] [address] Ariadne Helton MD Injury of right knee, initial encounter (Primary Dx); Sprain of medial collateral ligament of right knee, initial encounter 12/05/2024 Orders Only [facility] [place] [address] Ariadne Helton MD Migraine with aura and without status migrainosus, not intractable (Primary Dx) 12/05/2024 Travel 12/02/2024 Telephone [facility] [place] [address] Ariadne Helton MD Chart Prep 11/29/2024 Telephone [facility] [place] [place] [address] Ariadne Helton MD FMLA (I called the patient, regarding her application for FMLA. I informed her that at this time, she may qualify for two weeks of continuous leave. If she feels that she needs more time, she would need to wait until she evaluated by her PCP, for a determination to be made. She verbalized understanding. She has been scheduled for 12/05/24 at 10:[address] Lamb.) 11/24/2024 Telephone [facility] [address] [place] [phone] Ariadne Helton MD Nurse Triage 11/23/2024 11:15 AM EST Office Visit [address] [phone] Serena Stringer NP Sprain of medial collateral ligament of right knee, subsequent encounter (Primary Dx) 11/18/[address] [address] Ariadne Helton MD Letter for School/Work 10/07/2024 Telephone [facility] [address] [place] [phone] Irma Loco, PILY Results 10/06/2024 Telephone [facility] [address] [place] [phone] Irma Loco, PILY Results from Last 3 Months Immunizations Name Administration Dates Next Due Influenza, IIV3, injectable 07/23/2015, 5 MMR 08/29/2015 Tdap 06/22/2015 Social History Tobacco Use Types Packs/Day Years [...] your housing situation today? I have izzy sing 12/05/[address] you li [...] not to disclose 2021 10:19 AM EDT Last Filed Vital Signs Vital Sign Reading [...] Mass Index 35.22 01/03/2025 2:33 PM EDT Plan of Treatment Upcoming Encounters Date Type Department Care Team (Late st Contact Info) Description 01/24/2025 11:00 AM EDT Office Visit [facility] [address] [place] [address] Ariadne Helton MD [address] [place], [place] [phone] Health Maintenance Due Date Last Done Comments Family Planning (PISQ) 12/18/2006 Hepatitis C Screening 12/18/2009 Hepatitis B Vaccines (1 of 3 - 19+ 3-dose series) 12/18/2010 COVID-19 Vaccine ( - 2023-2 5 season) 2024 Influenza Vaccine (#1) 2024 5, 01/10/2015 DTaP/Tdap/Td Vaccines (2 - T d or Tdap) 06/22/2025 06/22/2015 Alcohol/Substance Use Screening 12/05/2025 12/05/2024 Depression Screening 12/05/2025 12/05/2024, 12/05/2024 SDOH Screening 12/05/2025 12/05/2024 Tobacco Screening 01/03/2026 01/03/2025 Cervical Cancer Screening 10/28/2028 HPV/Cotest 10/28/2028 10/28/2023 Pap Smear 10/28/2028 10/28/2023, 10/28/2023 Lipid Panel 05/18/2029 05/18/2024 Zoster Vaccines (1 of 2) 12/18/2041 RSV Patients and Patients Aged 60 years or older (1 - 1-dose 75+ series) 12/18/2066 HIV Screening Completed 07/31/2023, 01/02/2023 HIB Vaccines Aged Out No longer eligi ble based on patient's age to complete this topic HPV Vaccines Aged Out No longer eligi ble based on patient's age to complete this topic Hepatitis A Vaccines Aged Out No long er eligible based on patient's age to complete this topic IPV Vaccines Aged Out No longer eligi ble based on patient's age to complete this topic Meningococcal Vaccine Aged Out No sabrina lexx eligible based on patient's age to complete this topic Pneumococcal Vaccine: Pediatrics (0 to 5 Years) and At-Risk Patients (6 to 49) Years) Aged Out No longer eligible b ased on patient's age to complete this topic RSV under 20 months Aged Out No longe r eligible based on patient's age to complete this topic Rotavirus Vaccines Aged Out No longer eligible based on patient's age to complete this topic Procedures Procedure Name Priority Date/Time Associated Diagnosis Comments VITAMIN D,25-OH,TOTAL,IA Routine 01/03/2025 3:29 PM EDT Fatigue, unspecified type TSH W/REFLEX TO FT4 Routine 01/03/2025 3 :29 PM EDT Fatigue, unspecified type COMPREHENSIVE METABOLIC PANEL Routine 01/03/2025 3:29 PM EDT Fatigue, unspecified type FERRITIN Routine 01/03/2025 3:29 PM EDT Fatigue, unspecified type IRON AND TOTAL IRON BINDING CAPACITY Routine 01/03/2025 3:29 PM EDT Fatigue, unspecified type CBC WITH AUTO DIFFERENTIAL Routine 01/03/2025 3:29 PM EDT Fatigue, unspecified type LIPID PANEL WITH REFLEX TO DIRECT LDL Routine 05/18/2024 12:58 PM EDT Dizziness HPV MRNA E6/E7 REFLEX TO HPV 16, 18/45 Routine 10/28/2023 4:20 PM EST IMAGE-GUIDED PAP W/AGE BASED SCR,W/CT/NG/TRICH Routine 10/28/2023 4:20 PM EST Encounter for screening for cervical cancer HIV ANTIBODY/ANTIGEN ([place] DPH) Routine 07/31/2023 9:51 AM EDT from Last 3 Months or Most Recently Relevant to Health Maintenance Results * Vitamin D, 25-Hydroxy, Total, Immunoassay (01/03/2025 3:29 PM EDT) Vitamin D 25-OH Total 39.8 >30 ng/mL [facility] Comment: Health Based Reference Values*< 20 ??ng/mL ??[id number] ng/mL ??Insufficient> 30 ??ng/mL ??Sufficient*Waleska SMITH. N Engl J Med. 2007;[id number] is [...] BLOOD ORDERABLES Final Result Performing Organization Address [facility] de Phone Number [facility] [address] [place] [phone] * TSH with Reflex to Free T4 (01/03/2025 3:29 PM EDT) TSH reflex Free T4 1.29 0.32 - 4.0 uIU/mL [facility] Blood Venous blood specimen / Unknown 01/03/2025 3:29 PM EDT 01/03/2025 4:07 PM EDT us Ariadne Krueger MD LAB BLOOD ORDERABLES Final Result Performing Organization Address [facility] Co de Phone Number [facility] [address] [place] [phone] * CBC auto differential (01/03/2025 3:29 PM EDT) White Blood Count 7.7 4.8 - 10.8 X10*3/uL [facility] Red Blood Count 4.46 4.20 - 5.50 X10*6/uL [facility] Hemoglobin 12.8 12.0 - 16.0 g/dl [facility] Hematocrit 38.9 37.0 - 47.0 % [facility] Mean Corpuscular Volume 87.2 80.0 - 98.0 fL [facility] Mean Corpuscular Hemoglobin 28.7 27.0 - 33.0 pg [facility] Mean Corpuscular HGB Conc 32.9 31.0 - 35.0 g/dl [facility] Red Cell Distribution Width 14.0 11.0 - 16.0 % [facility] Platelet Count 386 160 - 400 X10*3/uL [facility] Mean Platelet Volume 10.4 9.4 - 12.3 fL [facility] Neutrophils Percent Auto 65.9 45 - 73 % [facility] Imm Gran Pct Auto 0.4 0.0 - 0.4 % [facility] Lymphocytes Percent Auto 23.2 20 - 40 % [facility] Monocytes Percent Auto 5.7 2 - 11 % [facility] Eosinophils Percent Auto 4.0 0 - 4 % [facility] Basophils Percent Auto 0.8 0 - 2 % [facility] NRBC Pct Auto 0.0 0.0 - 0.2 /100WBC [facility] Neutrophils Absolute Auto 5.1 2.0 - 8.3 x10*3/uL [facility] Imm Gran Abs Auto 0.03 0.00 - 0.03 X10*3/uL [facility] Lymphocytes Absolute Auto 1.8 1.2 - 4.9 X10*3/uL [facility] Monocytes Absolute Auto 0.4 0.1 - 1.2 X10*3/uL [facility] Eosinophils Absolute Auto 0.3 0.0 - 0.4 X10*3/uL [facility] Basophils Absolute Auto 0.1 0.0 - 0.2 X10*3/uL [facility] NRBC Abs Auto 0.000 0.0 - 0.012 X10*3/uL [facility] Blood Venous blood specimen / Unknown 01/03/2025 3:29 PM EDT 01/03/2025 4:07 PM EDT Ariadne Krueger MD LAB BLOOD ORDERABLES Final Result Performing Organization Address [facility] Co de Phone Number [facility] [address] [place] [phone] * Iron And Total Iron Binding Capacity (01/03/2025 3:29 PM EDT) Iron 60 30 - 160 mcg/dL [facility] Total Iron Binding Capacity 328 228 - 428 mcg/dL [facility] Percent Iron Saturation 18 15 - 50 % [facility] Unsaturated Iron Binding 268 ug/dL [facility] Blood Venous blood specimen / Unknown 01/03/2025 3:29 PM EDT 01/03/2025 4:07 PM EDT us Ariadne Krueger MD LAB BLOOD ORDERABLES Final Result Performing Organization Address [facility] Co de Phone Number [facility] [address] [place] [phone] * Ferritin (01/03/2025 3:29 PM EDT) Pathologist [facility] Ferritin 41 10 - 122 ng/mL [facility] Blood Venous blood specimen / Unknown 01/03/2025 3:29 PM EDT 01/03/2025 4:07 PM EDT Ariadne Krueger MD LAB BLOOD ORDERABLES Final Result Performing Organization Address [facility] Co de Phone Number [facility] [address] [place] [phone] * (ABNORMAL) Comprehensive Metabolic Panel (01/03/2025 3:29 PM EDT) Sodium 138 135 - 145 mmol/L [facility] Potassium 3.7 3.3 - 5.1 mmol/L [facility] Chloride 107 96 - 108 mmol/L [facility] Carbon Dioxide 26 22 - 29 mmol/L [facility] Anion Gap 9(L) 12 - 20 [facility] Urea Nitrogen (BUN) 13 9 - 16 mg/dL [facility] Creatinine, Serum 0.67 0.5 - 1.4 mg/dL [facility] Estimated Glomerular Filt Rate >60 [facility] Comment:Chronic Kidney Disea se: Estimated GFR < 60 mL/min/1.31o2Htdbpb Kidney Disease: Estimated GFR < 15 mL/min/1.73m2 Glucose 74 60 - 115 mg/dL [facility] Calcium 9.3 8.4 - 10.2 mg/dL [facility] Bilirubin, Total 0.2 0.0 - 1.0 mg/dL [facility] Aspartate Amino Transferase 21 5 - 31 U/L [facility] Alanine Aminotransferase 17 0 - 31 U/L [facility] Total Protein 7.3 6.5 - 8.0 g/dL [facility] Albumin Level 4.0 3.5 - 5.0 g/dL [facility] Alkaline Phosphatase 67 39 - 117 U/L [facility] Blood Venous blood specimen / Unknown 01/03/2025 3:29 PM EDT 01/03/2025 4:07 PM EDT us Ariadne Krueger MD LAB BLOOD ORDERABLES Final Result [facility] [address] [place] [phone] * Lipid Panel with Reflex to Direct LDL (05/18/2024 12:58 PM EDT) Triglycerides 105 <150 mg/dL [facility] Comment:Desirable Triglyceri de: less than 150 mg/dLBorderline High Triglyceride 150-199 mg/dLHigh Triglyceride: 200-499 mg/dLVery High Triglyceride: greater than or equal to 5OO mg/dL Cholesterol 183 <200 mg/dL [facility] Comment:Desirable Cholestero l: less than 200 mg/dLBorderline High Cholesterol: 200-239 mg/dLHigh Cholesterol: greater than 239 mg/dL LDL Cholesterol Calculated 85 <100 mg/dL [facility] Comment:Desirable LDL: less than 100 mg/dLNear Optimal/Above Optimal LDL: 110- 129 mg/dLBorderline High LDL: 130-159 mg/dLHigh LDL: 160-189 mg/dLVery High LDL: greater than or equal to 190 mg/dL HDL Cholesterol 77 >40 mg/dL [facility] Comment:Desirable HDL: great er than 40 mg/dL Note: This HDL assay may give artificially low results in patients with liver disease. Blood 05/18/2024 12:5 8 PM EDT 05/18/2024 4:09 PM EDT us Ariadne Krueger MD LAB BLOOD ORDERABLES Final Result [facility] [address] [place] [phone] * Image-Guided Pap with Age-Based Screening??with CT/NG,??Trichomonas (10/28/2023 4:20 PM EST) Trichomonas (NAAT) NOT DETECTED NOT DETECTED [facility] Comment:The analytical perfo rmance characteristics of thisassay have been determined by [facility]. Themodifications have not been cleared or approved bythe FDA. This assay has been validated pursuant to theIA regulations and is used for clinical purposes.For additional information, please refer tohttp://education.Sinnet/faq/Trichomonastma(This link is being provided for information/educational purposes only.)THIS TEST WAS PERFORMED AT:[facility] [email or web address] [address] [phone] SUMNER MD CTNG Ref Lab NOT DETECTED NOT DETECTED [facility] NG Ref Lab NOT DETECTED NOT DETECTED [facility] 10/28/2023 4:20 PM EST 10/29/2023 12:37 PM EST us Ariadne Krueger MD LAB CYTOLOGY ORDERABL ES Final Result Performing Organization Address [facility] Co de Phone Number [facility] [address] [place] [phone] * HPV mRNA E6/E7 w/Reflex to HPV Genotypes 16, 18/45 (10/28/2023 4:20 PM EST) HPV nRNA E6/E7 Not Detected Not Detected [facility] Comment:Methodology: Transcr iption-Mediated AmplificationThis assay detects E6/E7 viral messenger RNA (mRNA) from 14high-risk HPV types (16,18,31,33,35,39,45,51,52,56,58,59,66,68).Cervical sources are required for HPV testing.If a vaginal source from a patient who has had atotal hysterectomy with removal of cervix wassubmitted, please contact the testing laboratoryfor alternative testing options.For additional information, please refer tohttp://education.Sinnet/faq/BNR308g7(This link if provided for information/educational purposes only.)THIS TEST WAS PERFORMED AT:[facility] [place] [phone] SUMNER MD HPV mRNA E6/E7 [facility] HPV 16 RNA [facility] HPV 18/45 RNA [facility] 10/28/2023 4:20 PM EST 10/29/2023 8:00 AM EST us Ariadne Krueger MD LAB CYTOLOGY ORDERABL ES Final Result Performing Organization Address [facility]/ZIP Co de Phone Number [facility] [address] [place] [phone] * HIV Ab/Ag (SONIYA DYE) (07/31/2023 9:51 AM EDT) HIV AB/AG Nonreactive Nonreactive [facility] Comment:HIV-1 p24 Ag and/or HIV-1/HIV-2 Ab not detected.A test result that is nonreactive does not exclude thepossibility of exposure to or infection with HIV-1 and/orHIV-2. Nonreactive results in this assay for individualswith prior exposure to HIV-1 and/or HIV-2 may be due toantigen and antibody levels that are below the limit ofdetection of this assay.[employer] HIV Ag/Ab Combo assay result andsupplemental assay results should be interpreted inconjunction with the patient's clinical presentation,history and other laboratory results. If the results areinconsistent with clinical evidence, additional testing issuggested to confirm the result. 07/31/2023 9:51 AM EDT 07/31/2023 11:24 AM EDT us Ariadne Handley MD LAB BLOOD ORDERAB LES Final Result Performing Organization Address City/State/[facility] Co de Phone Number [facility] [address] [place] [phone] from Last 3 Months or Most Recently Relevant to Health Maintenance Insurance C3 C3 [facility] C3 [employer] on file Care Teams Certified Tower Climber Relationship Specialty Start Date End Date Ariadne Helton MD [address] [place] [address] PCP - General Family Medicine 03/22/20
[2025-01-03 18:28] LABS: Estimated Average Glucose 105 mg/dL; Hemoglobin A1C 115.7412 umol/L; Hemoglobin A1c % 5.3 % (<6.0); Total Hemoglobin (HGBA1C) 3386.5616 umol/L
[2025-01-03 18:33] LABS: Folate > 20.0 ng/mL (> or = 4.0); Vitamin B12 > 2000 pg/mL (200-900)
[2025-01-04 08:23] LABS: HBS Num1 107.35 mIU/mL (0-7.99); HBc Num1 0.09 S/CO (0.00-0.79); HBsAGNum1 0.31 S/CO (0.00-0.99); HIV AB/AG Nonreactive (Nonreactive); HIV Num 1 0.12 S/CO (0.00-0.99); Hepatitis A Antibody IgM 0.13 Index (0-0.79); Hepatitis B Core Antibody Nonreactive (Nonreactive); Hepatitis B Surface Antigen Negative (Negative); ~HepC Num1 0.43 S/CO (0.00-0.79); ~Hepatitis A Antibody IgM Nonreactive (Nonreactive); ~Hepatitis B Surface Antibody REACTIVE (Nonreactive); ~Hepatitis C Antibody Nonreactive (Nonreactive)
[2025-01-10 14:39] LABS: Anti Nuclear Antibody Pattern Nuclear, Speckled; Anti Nuclear Antibody Screen POSITIVE (NEGATIVE); Anti Nuclear Antibody Titer 1:40 titer
== END 2025-01-03 15:28 | disposition home or self-care (01) ==
LOC: HO.HHCL 15:27
PROVIDERS: Visit Provider Internal Medicine
DX: R53.83 Other fatigue (principal)
CPT/HCPCS: 36415; 80053; 82306; 82607; 82728; 82746; 83036; 83540; 84443; 85025; 86038; 86039; 86704; 86706; 86709; 86803; 87340; 87389

== ENCOUNTER 2025-02-22 10:51 | Emergency (ER) | payer MEDICAID, SELFPAY ==
--- NOTE | ~2025-02-22 | XR_ITS ---
EXAMINATION: XR CHEST CLINICAL INFORMATION: cp COMPARISON: September 01, 2023. TECHNIQUE: 2 views of the chest were obtained. FINDINGS: No hyperinflation. No consolidation pleural effusion or pneumothorax. Cardiomediastinal silhouette size is normal. Osseous structures are intact. Patient's large body habitus. Vascular clips in the right upper quadrant abdomen likely cholecystectomy procedure. XR/XR chest 2V IMPRESSION: No acute airspace disease. Electronically signed by: Gil García MD 02/22/2025 12:14 PM EDT
[2025-02-22 11:38] VITALS: BP 128/79; PULSE 87; RESP 16; TEMP 36.8; O2SAT 100; BMI 33.9
--- NOTE | 2025-02-22 11:38 | ED_ITS ---
HPI - General Adult General Chief complaint: Dizziness Stated complaint: Nausea, Headaches, Eye Pain (both), Dizziness Time Seen by Provider: 02/22/25 13:00 Source: patient History of Present Illness ED Provider: [facility] narrative: Patient is here with multiple complaints but really she is here for dizziness worse when she is moving her head, going on for the past 2 weeks, she feels pressure in her eyes when she does that, no chest pain no fevers or chills no pleurisy reported, denies shortness of breath, she is not on control pills, nonsmoker nondrinker no drug use does not take any medications at home. Has had this in the past. No weakness in upper or lower extremities. Related Data Previous Rx's ?Medication ?Instructions ?Recorded meloxicam 15 mg tablet 15 mg PO DAILY #10 tabs 04/02/23 cyclobenzaprine 10 mg tablet 10 mg PO TID PRN muscle spasm #20 09/01/23 tabs metronidazole 500 mg tablet 500 mg PO BID #14 tabs 09/05/23 nystatin 100,000 unit/gram topical 1 appl topical BID #15 grams 04/01/24 cream meclizine 12.5 mg tablet 12.5 mg PO TID PRN vertigo 5 days 02/22/25 #20 tabs scopolamine base 1 mg over 3 days 1 patch transdermal Q3D PRN 02/22/25 transdermal patch vertigo 7 days #4 ea Allergies Allergy/AdvReac Type Severity Reaction Status Date / Time aspirin [Aspirin] Allergy Unknown RASH Verified 02/22/25 11:41 Review of Systems 2 Constitutional: Constitutional: Reports as per [facility] Past Medical History Medical History Acute UTI Surgical History Hx laparoscopic cholecystectomy Hx of section History of abdominoplasty (~02/2023) Social History Social History Alcohol intake: never Patient Tobacco Use Status: Never used Tobacco Physical Exam ED Vital Signs: Vital Signs - 24 hr 02/22/25 11:38 Temperature 98.2 F Pulse Rate 87 Respiratory Rate 16 Blood Pressure 128/79 Pulse Oximetry 100 Oxygen Delivery Method Room Air BMI result Body Mass Index 33.9 Const Other: * Gen: ?Overall well-appearing patient * HEENT: PERRLA, EOMI, MMM, left ear with external canal irritation * Neck: Supple, no LAD * CV: RRR, no obvious murmurs appreciated * Resp: ?No wheezing rales rhonchi no stridor moving air well * Abd: ?Bowel sounds are present, no tenderness no rebound no rigidity * MSK: FROM, strength 5/5 all extremities * Skin: Warm, dry, intact, * Neuro: ?Alert and oriented x3, moving upper and lower extremities symmetrically, no obvious facial asymmetry noted, no dysmetria noted upper or lower extremities, she has left-sided nonsustained nystagmus without rotary or vertical component Course Course Course Narrative: This is a Rapid Medical Exam performed in triage by Samantha Couch PA-C. Full HPI, ROS and PE to be performed by primary ED provider. 34-year-old Cameroonian-speaking female presenting to the ED c/o bilateral eye pain, dizziness described at feeling faint, nausea & CP x yesterday. CP is constant. denies SOB, HERNANDEZ PE: Ambulating with steady gait, nontoxic appearing, no focal deficits Plan: EKG, labs, UA, viral testing Medical Decision Making Medical Decision Making [facility] Narrative: Patient is presenting with dizziness on physical examination consistent with vertigo to the left side without any other physical exam findings to suspect central cause of vertigo such as cavernous venous thrombosis or cerebellar stroke or vertebral artery dissection, ECG without dysrhythmia, she is not anemic, blood work to evaluate for dehydration, there is evidence that she is overusing a Q-tip and it likely irritating her ear causing these symptoms, this has been discussed with her with the help of the drug safety specialist Differential Diagnosis Cavernous venous thrombosis, TIA, carotid or vertebral artery dissection, PE, dehydration, anemia Admission/Observation Consideration of admission/observation: Escalation of care including admission/observation considered There was no evidence for abnormal vital signs or physical exam did not feel she requires further imaging for admission such as brain MRI for cerebellar issues Lab Data [facility] Lab Attestation statement: I reviewed the patient's lab results. 02/22/25 12:25 02/22/25 12:25 Labs: Lab Results 02/22/25 Range/Units 12:25 WBC 3.5 L (4.8-10.8) X10*3/uL RBC 4.26 (4.20-5.50) X10*6/uL Hgb 12.4 (12.0-16.0) g/dl Hct 36.2 L (37.0-47.0) % MCV 85.0 (80.0-98.0) fL MCH 29.1 (27.0-33.0) pg MCHC 34.3 (31.0-35.0) g/dl RDW 12.8 (11.0-16.0) % Plt Count 255 D (160-400) X10*3/uL MPV 9.5 (9.4-12.3) fL Immature Gran % (Auto) 0.3 (0.0-0.4) % Neut % (Auto) 62.9 (45-73) % Lymph % (Auto) 21.2 (20-40) % [place]imer % (Auto) 10.2 (2-11) % Eos % (Auto) 3.7 (0-4) % Baso % (Auto) 1.7 (0-2) % Lymph # (Auto) 0.8 L (1.2-4.9) X10*3/uL [place] # (Auto) 0.4 (0.1-1.2) X10*3/uL Eos # (Auto) 0.1 (0.0-0.4) X10*3/uL Baso # (Auto) 0.1 (0.0-0.2) X10*3/uL Abs Immat Gran (auto) 0.01 (0.00-0.03) X10*3/uL Absolute Neuts (auto) 2.2 (2.0-8.3) x10*3/uL Absolute Nucleated RBC 0.000 (0.0-0.012) X10*3/uL Nucleated RBC % (auto) 0.0 (0.0-0.2) /100WBC Sodium 140 (135-145) mmol/L Potassium 3.4 (3.3-5.1) mmol/L Chloride 106 (96-108) mmol/L Carbon Dioxide 27 (22-29) mmol/L Anion Gap 10 L (12-20) BUN 7 L (9-16) mg/dL Random Glucose 82 (60-115) mg/dL Calcium 8.4 D (8.4-10.2) mg/dL Magnesium 1.9 (1.6-2.6) mg/dL Direct Bilirubin 0.1 (0.0-0.5) mg/dL AST 23 (5-31) U/L ALT 19 (0-31) U/L Alkaline Phosphatase 70 (39-117) U/L Troponin I High Sens < 2.7 (<3.5-17.0) ng/L Total Protein 6.8 (6.5-8.0) g/dL Influenza Type A (PCR) NEGATIVE (Negative) Influenza Type B (PCR) NEGATIVE (Negative) RSV RNA Qual (PCR) NEGATIVE (Negative) SARS-CoV-2 RNA (RT-PCR) NEGATIVE (Negative) Independent Interpretation I performed an independent interpretation of an: EKG (81 otherwise normal ECG without dysrhythmia, AV trina blocks or ST-T changes to suspect underlying ACS, my independent interpretation) Radiology Impression Discussion of test interpretation with radiology: I have reviewed the radiologist's reading. Radiologist Impression: [place] [phone] XRay Report Signed Patient: Anabel Handley MR#: [id number] : 1990 Acct:[id number] Age/Sex: 34 / F ADM Date: 02/22/25 Loc: .ED Attending Dr: Ordering Physician: Samantha Couch Date of Service: 02/22/25 Procedure(s): XR chest 2V Accession Number(s): [id number] cc: Ariadne Helton MD; Samantha Couch~ EXAMINATION: XR CHEST CLINICAL INFORMATION: cp COMPARISON: September 01, 2023. TECHNIQUE: 2 views of the chest were obtained. FINDINGS: No hyperinflation. No consolidation pleural effusion or pneumothorax. Cardiomediastinal silhouette size is normal. Osseous structures are intact. Patient's large body habitus. Vascular clips in the right upper quadrant abdomen likely cholecystectomy procedure. XR/XR chest 2V IMPRESSION: No acute airspace disease. Discharge Plan Discharge Clinical Impression: Benign paroxysmal positional vertigo Qualifiers: Laterality: unspecified laterality Qualified Code(s): H81.10 - Benign paroxysmal vertigo, unspecified ear Patient Disposition: Home, Self-Care Instructions: Vertigo (ED) Additional Instructions: Your blood work, EKG, chest x-ray, vital signs reassuring, physical examination is consistent with benign positional vertigo, worse to the left, with evidence of external ear canal irritation were discussed not using Q-tip aggressively to clean her ears you can clean your ears every 4 or 5 days, and I would limit the use of the type of year but you are using as I think it is likely also contributing to his symptoms if you are using for multiple hours throughout the day. Follow up with the PCP worsening issues or concerns come back to the ER Prescriptions: New scopolamine base 1 mg over 3 days patch 3 day 1 patch transdermal Q3D PRN (Reason: vertigo) 7 Days Qty: 4 0RF meclizine 12.5 mg tablet 12.5 mg PO TID PRN (Reason: vertigo) 5 Days Qty: 20 0RF No Action metronidazole 500 mg tablet 500 mg PO BID Qty: 14 0RF meloxicam 15 mg tablet 15 mg PO DAILY Qty: 10 0RF cyclobenzaprine 10 mg tablet 10 mg PO TID PRN (Reason: muscle spasm) Qty: 20 0RF nystatin 100,000 unit/gram cream 1 appl topical BID Qty: 15 0RF Referrals: Ariadne Helton MD [Primary Care Provider] - Print Language: Cameroonian
--- NOTE | 2025-02-22 11:40 | ECG_ITS ---
Test Reason : CP Blood Pressure : */* mmHG Vent. Rate : 81 BPM Atrial Rate : 81 BPM P-R Int : 112 ms QRS Dur : 68 ms QT Int : 350 ms P-R-T Axes : 54 52 25 degrees QTcB Int : 406 ms Normal sinus rhythm with sinus arrhythmia Normal ECG When compared with ECG of 13-Jul-2024 09:58, No significant change was found Referred By: Samantha Couch Electronically Signed By: Armen Freedman
[2025-02-22 12:30] LABS: MANUAL DIFF FLAG NO
[2025-02-22 12:31] LABS: Basophils Absolute Auto 0.1 X10*3/uL (0.0-0.2); Basophils Percent Auto 1.7 % (0-2); Eosinophils Absolute Auto 0.1 X10*3/uL (0.0-0.4); Eosinophils Percent Auto 3.7 % (0-4); Hematocrit 36.2 % (37.0-47.0); Hemoglobin 12.4 g/dl (12.0-16.0); Imm Gran Abs Auto 0.01 X10*3/uL (0.00-0.03); Imm Gran Pct Auto 0.3 % (0.0-0.4); Lymphocytes Absolute Auto 0.8 X10*3/uL (1.2-4.9); Lymphocytes Percent Auto 21.2 % (20-40); Mean Corpuscular HGB Conc 34.3 g/dl (31.0-35.0); Mean Corpuscular Hemoglobin 29.1 pg (27.0-33.0); Mean Platelet Volume 9.5 fL (9.4-12.3); Monocytes Absolute Auto 0.4 X10*3/uL (0.1-1.2); Monocytes Percent Auto 10.2 % (2-11); Neutrophils Absolute Auto 2.2 x10*3/uL (2.0-8.3); Neutrophils Percent Auto 62.9 % (45-73); Platelet Count 255 X10*3/uL (160-400); Red Blood Count 4.26 X10*6/uL (4.20-5.50); Red Cell Distribution Width 12.8 % (11.0-16.0); White Blood Count 3.5 X10*3/uL (4.8-10.8)
[2025-02-22 12:55] LABS: Troponin-I High Sensitivity < 2.7 ng/L (<3.5-17.0)
[2025-02-22 12:59] LABS: Alanine Aminotransferase 19 U/L (0-31); Alkaline Phosphatase 70 U/L (39-117); Anion Gap 10 (12-20); Aspartate Amino Transferase 23 U/L (5-31); Bilirubin Direct 0.1 mg/dL (0.0-0.5); Blood Urea Nitrogen 7 mg/dL (9-16); Calcium 8.4 mg/dL (8.4-10.2); Carbon Dioxide 27 mmol/L (22-29); Chloride 106 mmol/L (96-108); Glucose Random 82 mg/dL (60-115); Magnesium 1.9 mg/dL (1.6-2.6); Potassium 3.4 mmol/L (3.3-5.1); Sodium 140 mmol/L (135-145); Total Protein 6.8 g/dL (6.5-8.0)
[2025-02-22 13:07] LABS: Influenza A PCR NEGATIVE (Negative); Influenza B PCR NEGATIVE (Negative); Resp Syncy Virus RNA Qual PCR NEGATIVE (Negative); SARS COV2 PCR INHOUSE NEGATIVE (Negative)
[2025-02-22] MEDS: Scopolamine 1.5 MG PATCH.TD.3 EAR-BEHIND (13:33)
[2025-02-22] MEDS: Meclizine HCl 25 MG TABLET PO (13:33)
[2025-02-22 13:56] VITALS: BP 108/61
--- OUTSIDE RECORDS SUMMARY | 2025-02-22 13:59 | XMS_ITS | Encounter Summary ---
Author Organization [employer] Address [address] [facility] [address] [place] [address] Care Team Providers Care Consumer Insight Analyst Name Role Phone Ariadne Helton MD Primary Care Provide r Reason for Visit * Reason Onset Date Comments Error 12/01/2023 Encounter Details Date Type Department Care Team ([facility] Contact Info) Description 12/01/2023 Telephone [facility] MEDICINE [address] [place] [address] Ariadne Helton MD [address] [place] [address] Error Social History Tobacco Use Types Packs/Day [...] Care Team (Late st Contact Info) Description 03/03/2025 11:00 AM EDT Telemedicine [facility] MEDICINE [address] [place] [address] Ariadne Helton MD [address] [place] [phone] documented as of this encounter Visit Diagnoses Not on filedocumented in this encounter Care Teams Consumer Insight Analyst Relationship Specialty Start Date End Date Ariadne Helton MD [address] [place] [address] [phone] PCP - General Family Medicine 03/22/20 documented as of this encounter
--- OUTSIDE RECORDS SUMMARY | 2025-02-22 14:00 | XMS_ITS | Encounter Summary ---
Author Organization [employer] Address [address] [facility] [address] [place] [address] Care Team Providers Care Synchronous Motor Assembler Name Role Phone Ariadne Helton MD Primary Care Provide r Reason for Visit * Reason Onset Date Comments Nurse Triage 05/11/2024 Encounter Details Date Type Department Care Team ([facility] st Contact Info) Description 05/11/2024 Telephone [facility] MEDICINE [address] [place] [address] Ariadne Helton MD [address] [place] [address] Nurse Triage Social History Tobacco Use Types [...] 05/11/2024 11:20 AM EDT Triage call with [employer] Specialist ID [id number] Pt reports chronic dizziness for last 2-3 [...] prevention. Pt is offered to come to [facility] today but, declines and is requesting [...] accepted this outcome Please contact pt @ [phone] documented in this encounter Plan of Treatment Upcoming Encounters Date Type Department Care Team (Late st Contact Info) Description 03/03/2025 11:00 AM EDT Telemedicine [facility] MEDICINE [address] [place] [address] Ariadne Helton MD [address] [place] [address] documented as of this encounter Visit Diagnoses Not on filedocumented in this encounter Additional Health Concerns Assessment Noted Time PHQ-9 Depression Total Score: 0 02/03/20 24 2:36 PM EDT documented as of this encounter Care Teams Synchronous Motor Assembler Relationship Specialty Start Date End Date Ariadne Helton MD [address] [place] [phone] PCP - General Family Medicine 03/22/20 documented as of this encounter
--- OUTSIDE RECORDS SUMMARY | 2025-02-22 14:00 | XMS_ITS | Encounter Summary ---
Author Organization [employer] Address [address] [facility] 7t [place] [address] Care Team Providers Care Male Infertility Specialist Name Role Phone Ariadne Helton MD Primary Care Provide r Reason for Visit * Reason Comments Med Refill Encounter Details Date Type Department Care Team ([facility] Contact Info) Description 10/09/2023 Refill [facility] MEDICINE [address] [place] [address] Sangita Watt MD [address] [place] [address] Social History Tobacco Use Types Packs/Day Years [...] Info) Description 03/03/2025 11:00 AM EDT Telemedicine [facility] MEDICINE [address] [place] [address] Ariadne Helton MD [address] [place] [address] documented as of this encounter Visit Diagnoses Not on filedocumented in this encounter Care Teams Male Infertility Specialist Relationship Specialty Start Date End Date Ariadne Helton MD [address] [place] [address] PCP - General Family Medicine 03/22/20 documented as of this encounter
--- OUTSIDE RECORDS SUMMARY | 2025-02-22 14:00 | XMS_ITS | Encounter Summary ---
Author Organization [employer] Address [address] [facility] [address] [place] [address] Care Team Providers Care Records Technician Name Role Phone Ariadne Helton MD Primary Care Provide r Encounter Details Date Type Department Care Team ([facility] st Contact Info) Description 02/22/2025 Orders Only GENERIC EXTERNAL DATA DEPARTMENT Provider, Generic External Data Social History Tobacco Use Types Packs/Day Years Used Date Smoking Tobacco: Never Passive Smoke Exposure: Never Smokeless Tobacco: Never Alcohol Use Standard Drinks/Week Comments Never 0 (1 standard drink = 0.6 oz pur e alcohol) Depression Answer Date Recorded Patient Health Questionnaire-9 Score 3 01/24/2025 Patient Health Questionnaire-9 Score 3 01/24/2025 Last PHQ-9: Questionnaire Data Not on file 0 01/24/2025 Housing Stability Answer Date Recorded What is [...] Date Recorded Patient Health Questionnaire-2 Score 0 01/24/2025 Internet Access Answer Date Recorded Internet Access [...] Info) Description 03/03/2025 11:00 AM EDT Telemedicine [facility] MEDICINE [address] [place], [place] [phone] Ariadne Helton MD [address] [place] [address] Pending Results Name Type Priority Associated Diagnoses Date /Time Hepatic Function Panel Lab Routine 12:25 PM EDT Basic Metabolic Panel Lab Routine 12:25 PM EDT Magnesium Lab Routine 02/22/2025 12: 25 PM EDT documented as of this encounter Procedures Procedure Name Priority Date/Time Associated Diagnosis Comments HIGH SENSITIVITY TROPONIN I Routine 02/22/2025 12:25 PM EDT SARS COV2/INFLUENZA A/B AND RSV RNA QL NAAT Routine 02/22/2025 12:25 PM EDT CBC WITH AUTO DIFFERENTIAL Routine 02/22/2025 12:25 PM EDT MAGNESIUM Routine 02/22/2025 12:25 PM EDT HEPATIC FUNCTION PANEL Routine 02/22/2025 12:25 PM EDT BASIC METABOLIC PANEL Routine 02/22/2025 12:25 PM EDT documented in this encounter Results * SARS-CoV-2 RNA, Influenza A/B, and RSV RNA, Ql NAAT (02/22/2025 12:25 PM EDT) Influenza A PCR NEGATIVE Negative [facility] Influenza B PCR NEGATIVE Negative [facility] Resp Syncy Virus RNA Qual PCR NEGATIVE Negative [facility] SARS COV2 PCR NEGATIVE Negative [facility] Comment:All test results mus t be correlated with clinical findings.Negative results do not preclude SARS-CoV2, influenza Avirus, influenza B virus and/or RSV infectionand should not be used as the sole basis for treatment orother patient management decisions. Negative results must becombined with clinical observations, patient history, andepidemiological information.This test has not been evaluated for monitoring treatment ofinfection.This test has been authorized by the FDA under an EmergencyUse Authorization (EUA) for use by authorized laboratories.Testing performed on the [employer] GeneXpert utilizingreal-time RT-PCR.All SARS CoV2 and positive influenza A/B results arereported to [facility]. 02/22/2025 12:2 5 PM EDT 02/22/2025 12:28 PM EDT Generic External Data Provider LAB MICROBIOLOGY - GENERAL ORDERABLES Final Result Performing Organization Address [facility]/ZIP Co de Phone Number [facility] [address] [place] [phone] * High Sensitivity Troponin I (02/22/2025 12:25 PM EDT) [facility] TROPONIN I HIGH SENSITIVITY <2.7 <3.5 - 17.0 ng/L [facility] Comment:The [employer] high sens itivity Troponin-I results should beused in conjunction with other diagnostic information suchas ECG, clinical observations and information, and patientsymptoms to aid in the diagnosis of [place]. 02/22/2025 12:2 5 PM EDT 02/22/2025 12:28 PM EDT Generic External Data Provider LAB BLOOD ORDERAB LES Final Result Performing Organization Address [facility]/ZIP Co de Phone Number [facility] [address] [place] [phone] * (ABNORMAL) CBC auto differential (02/22/2025 12:25 PM EDT) White Blood Count 3.5(L) 4.8 - 10.8 X10*3/uL [facility] Red Blood Count 4.26 4.20 - 5.50 X10*6/uL [facility] Hemoglobin 12.4 12.0 - 16.0 g/dl [facility] Hematocrit 36.2(L) 37.0 - 47.0 % [facility] Mean Corpuscular Volume 85.0 80.0 - 98.0 fL [facility] Mean Corpuscular Hemoglobin 29.1 27.0 - 33.0 pg [facility] Mean Corpuscular HGB Conc 34.3 31.0 - 35.0 g/dl [facility] Red Cell Distribution Width 12.8 11.0 - 16.0 % [facility] Platelet Count 255 160 - 400 X10*3/uL [facility] Mean Platelet Volume 9.5 9.4 - 12.3 fL [facility] Neutrophils Percent Auto 62.9 45 - 73 % [facility] Imm Gran Pct Auto 0.3 0.0 - 0.4 % [facility] Lymphocytes Percent Auto 21.2 20 - 40 % [facility] Monocytes Percent Auto 10.2 2 - 11 % [facility] Eosinophils Percent Auto 3.7 0 - 4 % [facility] Basophils Percent Auto 1.7 0 - 2 % [facility] NRBC Pct Auto 0.0 0.0 - 0.2 /100WBC [facility] Neutrophils Absolute Auto 2.2 2.0 - 8.3 x10*3/uL [facility] Imm Gran Abs Auto 0.01 0.00 - 0.03 X10*3/uL [facility] Lymphocytes Absolute Auto 0.8(L) 1.2 - 4.9 X10*3/uL [facility] Monocytes Absolute Auto 0.4 0.1 - 1.2 X10*3/uL [facility] Eosinophils Absolute Auto 0.1 0.0 - 0.4 X10*3/uL [facility] Basophils Absolute Auto 0.1 0.0 - 0.2 X10*3/uL [facility] NRBC Abs Auto 0.000 0.0 - 0.012 X10*3/uL [facility] 02/22/2025 12:2 5 PM EDT 02/22/2025 12:28 PM EDT us Generic External Data Provider LAB BLOOD ORDERAB LES Final Result Performing Organization Address City/State/[facility] Co de Phone Number [facility] [address] [place] [phone] documented in this encounter Visit Diagnoses Not on filedocumented in this encounter Additional Health Concerns Assessment Noted Time PHQ-9 Depression Total Score: 3 01/25/20 25 2:27 PM EDT documented as of this encounter Care Teams Records Technician Relationship Specialty Start Date End Date Ariadne Helton MD [address] [place] [address] PCP - General Family Medicine 03/22/20 documented as of this encounter
--- OUTSIDE RECORDS SUMMARY | 2025-02-22 14:00 | XMS_ITS | Encounter Summary ---
Author Organization [employer] Address [address] [facility] [address] [place] [address] Care Team Providers Care Embossed Or Impressed Lettering Painter Name Role Phone Ariadne Helton MD Primary Care Provide r Encounter Details Date Type Department Care Team (Latest Contact Info) Description 02/17/2025 Travel Social History Tobacco Use Types Packs/Day [...] Info) Description 03/03/2025 11:00 AM EDT Telemedicine [facility] MEDICINE [address] [place] [address] Ariadne Helton MD [address] [place] [address] documented as of this encounter Visit Diagnoses Not on filedocumented in this encounter Additional Health Concerns Assessment Noted Time PHQ-9 Depression Total Score: 3 01/25/20 25 2:27 PM EDT documented as of this encounter Care Teams Embossed Or Impressed Lettering Painter Relationship Specialty Start Date End Date Ariadne Helton MD [address] [place] [address] PCP - General Family Medicine 03/22/20 documented as of this encounter
--- OUTSIDE RECORDS SUMMARY | 2025-02-22 14:00 | XMS_ITS | Encounter Summary ---
Author Organization [employer] Address [address] [place] [address] Care Team Providers Care Public Health Inspector Name Role Phone Ariadne Helton MD Primary Care Provide r Reason for Referral * Imaging (Urgent) - Authorized Specialty Diagnoses / Procedures Referred By Contac t Referred To Contact Radiology Diagnoses Pelvic pain Procedures Us Pelvis complete Jaiden Powers MD [address] [place] [id number] Phone: tel: fax: [address] Phone: tel: fax: Referral ID Status Reason Start Date Expiration Date V isits Requested Visits Authorized [id number] Authorized 02/17/2025 02/17/2026 1 1 Reason for Visit * Reason Comments Abdominal Pain Encounter Details Date Type Department Care Team (Late st Contact Info) Description 02/17/2025 8:40 AM EDT Office Visit [facility] [address] [place] [address] [phone] Jaiden Powers MD [address] [place] [address] [phone] Pelvic pain (Primary Dx); Nausea Social History Tobacco Use Types Packs/Day Years [...] Sign Reading Time Taken Comments Blood Pressure 116/75 02/17/2025 8:47 AM EDT Pulse 65 02/17/2025 8:47 AM EDT Temperature 36.7 ??C (98 ??F) 02/17/2025 8:47 AM EDT Respiratory Rate 18 02/17/2025 8:47 AM EDT Oxygen Saturation 98% 02/17/2025 8:47 AM EDT Inhaled Oxygen Concentration - - Weight 83.9 kg (185 lb) 02/17/2025 8:47 AM EDT Height - - Body Mass Index 33.84 01/24/2025 10:53 AM EDT documented in this encounter Progress Notes * Jaiden Powers MD - 02/17/2025 8:40 AM EDT Subjective History was provided by the patient. Anabel Handley is a 34 y.o. female who presents for evaluation of 1-week duration of pelvic pain andnausea. Pain is persistent for 1 week. Denies F/C or V/D. Denies dysuria or hematuria. History of BTL. LMP was about 1 month ago. Also states menorrhagia with her previous period. Denies vaginal discharge. Objective Vitals: 02/17/25 0847 BP: 116/75 BP Location: Left arm Patient Position: Sitting BP Cuff Size: Adult Pulse: 65 Resp: 18 Temp: 98 ??F (36.7 ??C) TempSrc: Temporal SpO2: 98% Weight: 185 lb (83.9 kg) Physical Exam Vitals reviewed. Constitutional: Appearance: Normal appearance. She is normal weight. HENT: Head: Normocephalic and atraumatic. Right Ear: External ear normal. Left Ear: External ear normal. Nose: Nose normal. Mouth/Throat: Mouth: Mucous membranes are moist. Pharynx: Oropharynx is clear. Eyes: Extraocular Movements: Extraocular movements intact. Conjunctiva/sclera: Conjunctivae normal. Cardiovascular: Rate and Rhythm: Normal rate and regular rhythm. Heart sounds: Normal heart sounds. Pulmonary: Effort: Pulmonary effort is normal. Breath sounds: Normal breath sounds. Abdominal: General: Abdomen is flat. Bowel sounds are normal. There is no distension. Palpations: Abdomen is soft. Tenderness: There is no abdominal tenderness. There is no right CVA tenderness, left CVA tenderness, guarding or rebound. Musculoskeletal: General: Normal range of motion. Cervical back: Normal range of motion and neck supple. Skin: General: Skin is warm and dry. Neurological: General: No focal deficit present. Mental Status: She is alert and oriented to person, place, and time. Psychiatric: Mood and Affect: Mood normal. Behavior: Behavior normal. Anabel was seen today for abdominal pain. Diagnoses and all orders for this visit: Pelvic pain (Primary) - POCT urinalysis dipstick manually resulted - POCT , urine manually resulted - Us Pelvis complete; Future - ibuprofen 600 MG tablet; Take 1 tablet (600 mg) by mouth every 8 (eight) hours if needed for moderate pain or mild pain for up to 7 days. (ASA allergy due to rash, but tolerates Ibuprofen without difficulty) Nausea - ondansetron ODT (Zofran-ODT) 4 MG disintegrating tablet; Take 1 tablet (4 mg) by mouth every 8 (eight) hours if needed for nausea for up to 7 days. Patient presents to [facility] due to 1-week duration of pelvic pain No clinical evidence of acute abdomen POC UA unremarkable today Urine HCG negative Also with menorrhagia and nausea Will check urgent Pelvic U/S Ondansetron prn for nausea Ibuprofen 600mg PO q8 hours PRN Recent LFT, BMP, and CBC within normal (01/2025) Indications for UC/ER use reviewed Advised to contact the clinic if persistent or worsening symptoms documented in this encounter Plan of Treatment Upcoming Encounters Date Type Department Care Team (Late st Contact Info) Description 03/03/2025 11:00 AM EDT Telemedicine [facility] [address] [place] [address] Ariadne Helton MD [address] [place] [address] Scheduled Orders Name Type Priority Associated Diagnoses Orde r Schedule Us Pelvis complete Imaging Urgent Pelvic pain Expected: 02/17/2025, Expires: 02/17/2026 documented as of this encounter Procedures Procedure Name Priority Date/Time Associated Diagnosis Comments POCT , URINE Routine 02/17/2025 9:25 AM EDT Pelvic pain POCT URINALYSIS DIPSTICK Routine 02/17/2025 9:24 AM EDT Pelvic pain documented in this encounter Results * POCT , urine manually resulted (02/17/2025 9:25 AM EDT) Preg Test, Ur Negative Negative, Indeterminate, None Detected, Invalid, Specimen unsatisfactory for evaluation, Weakly Positive, 2+ Urine 02/17/2025 9:25 AM EDT us Jaiden Powers MD POINT OF CARE TEST ENTER/EDIT OR DERABLES Final Result * POCT urinalysis dipstick manually resulted (02/17/2025 9:24 AM EDT) Color, UA Yellow Clarity, UA Clear Glucose, UA Negative Bilirubin, UA Negative Ketones, UA Negative Spec Grav, UA 1.025 Blood, UA Negative Negative, None Detected pH, UA 6.0 Protein, UA Negative Urobilinogen, UA 0.2 Leukocytes, UA Negative Negative, Rare, Trace Nitrite, UA Negative Negative, None Detected Urine 02/17/2025 9:24 AM EDT us Jaiden Powers MD POINT OF CARE TEST ENTER/EDIT OR DERABLES Final Result documented in this encounter Visit Diagnoses Diagnosis Pelvic pain- Primary Nausea Nausea alone documented in this encounter Additional Health Concerns Assessment Noted Time PHQ-9 Depression Total Score: 3 01/25/20 25 2:27 PM EDT documented as of this encounter Care Teams Public Health Inspector Relationship Specialty Start Date End Date Ariadne Helton MD [address] [place] [id number] PCP - General Family Medicine 03/22/20 documented as of this encounter
--- OUTSIDE RECORDS SUMMARY | 2025-02-22 14:00 | XMS_ITS | Clinical Summary ---
Author Organization [employer] Address [address] [facility] [facility] [address] [place] [address] Care Team Providers Care Animal Behaviorist Name Role Phone Ariadne Helton MD Primary Care Provide r Allergies Active Allergy Reactions Criticality Noted Date Comments Aspirin Rash Low 03/24/2017 Medications * This document contains information received from the source organization and may not represent a complete record from that organization. hydrocortisone (Anusol-HC) 2.5 % rectal creamIndications: Hemorrhoids, unspecified hemorrhoid type Insert into the rectum 2 times daily. 28 g 08/14/20 23 Active fluconazole (Diflucan) 150 MG tabletIndications :Vaginal discharge Take one tablet then after 72hrs take another tablet 2 tablet 12/22/19 24 Active bacitracin-polymy isidro b (Polysporin) ointment Apply topically 2 times daily. Apply to affected area daily 30 g 03/16/20 24 Active Blood Pressure Monitoring (Blood Pressure Cuff) miscIndications:T emporary high blood pressure 1 each Once daily. 1 each 05/18/20 24 Active minoxidil (Loniten) 2.5 MG tabletIndications :Androgenetic alopecia Take 1 tablet (2.5 mg) by mouth Once per day. 90 tablet 3 07/08/20 24 Active ketoconazole (NIZOral) 2 % shampooIndication s:Seborrheic dermatitis Apply topically 2 (two) times a week. 120 mL 3 07/11/20 24 Active ascorbic acid (Vitamin C) 500 MG tabletIndications :Iron deficiency Take 1 tablet (500 mg) by mouth every other day. 15 tablet 2 07/12/20 24 025 Active ferrous gluconate (Fergon) 324 (38 Fe) MG tabletIndications :Iron deficiency Take 1 tablet (324 mg) by mouth every other day. 15 tablet 2 07/12/20 24 025 Active SUMAtriptan (Imitrex) 50 MG tabletIndications :Migraine with aura and without status migrainosus, not intractable Take 1 tablet (50 mg) by mouth 1 (one) time if needed for migraine. May repeat dose once in 2 hours if no relief. Do not exceed 2 doses in 24 hours. 9 tablet 1 12/06/19 25 Active topiramate (Topamax) 25 MG tabletIndications :Migraine with aura and without status migrainosus, not intractable Take 1 tablet (25 mg) by mouth at bedtime. 30 tablet 2 01/25/20 25 026 Active ondansetron ODT (Zofran-ODT) 4 MG disintegrating tabletIndications :Nausea Take 1 tablet (4 mg) by mouth every 8 (eight) hours if needed for nausea for up to 7 days. 20 tablet 02/18/20 25 025 Active ibuprofen 600 MG tabletIndications :Pelvic pain Take 1 tablet (600 mg) by mouth every 8 (eight) hours if needed for moderate pain or mild pain for up to 7 days. (ASA allergy due to rash, but tolerates Ibuprofen without difficulty) 20 tablet 02/18/20 25 025 Active ibuprofen 400 MG tablet Take 1 tablet (400 mg) by mouth every 6 (six) hours if needed for moderate pain or fever for up to 30 doses. 30 tablet 07/12/20 24 025 Discontinued amitriptyline (Elavil) 10 MG tabletIndications :Chronic migraine with aura and with status migrainosus, not intractable Take 1 tablet (10 mg) by mouth at bedtime. 30 tablet 1 01/04/20 25 025 Discontinued Active Problems Problem Noted Date Diagnosed Date Severe anxiety 01/24/2025 Assessment & Plan (01/24/2025 4:41 PM EDT): N called today we will follow recommendations, at this time patient does not want medications for anxiety or depression Assessment & Plan (01/24/2025 12:07 PM EDT): PROGRESS NOTE: ID: Anabel is a 34 y.o. Decline to answer choose not to disclose- identified cis-female with previous documented hx of Depression and Anxiety No previous hx of MH services who presents for Anxiety and Depression During IBH Consult Anabel presenting with depressed mood, Tearful, crying spells , irritable mood, loss of interests/pleasure , change in appetite or weight overeating, fatigue/loss of energy, worthlessness, inappropriate/excessive guilt , difficulty concentrating, indecisiveness and excessive worry/anxiety, difficulty controlling worry, anxiety/worry associated to restlessness and/or feeling keyed-up/On edge , easily fatigued , difficulty concentrating and/or mind going blank , irritability, and muscle tension , and Fear ; for a period of 0-6 mo, for most or all symptoms in the context of ending mcc relationship, co-parenting, fearful of judgement, living in hostile environment . PLAN: New/Additional Services needed Off-site services for Behavioral Health Integration Plan External OP therapy referral Patient Self Plan Patient to utilize skills provided in intervention , Patient [facility] as needed, Patient to engage in OP therapy , and Patient to reach out to [facility] as needed Moderate depressive disorder 01/24/2025 Chronic migraine with aura 01/03/2025 Assessment & Plan (01/04/2025 1:42 PM EDT): I advise to avoid migraine triggers like red wine, chocolate, cheese, strong perfumes I will prescribe for patient amitriptyline 10 mg at bedtime I educated patient on side effects of this medications somnolence I advised patient to have her as needed medication for next visit to see if the medication is helping or not and see if I can switch her or not Fatigue 01/03/2025 Assessment & Plan (01/04/2025 1:42 PM EDT): Extensive blood work will be ordered today patient will be contacted with results Right knee injury 12/05/2024 Assessment & Plan [...] work, PCP aware, 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 intermediate work plan Iron deficiency 05/19/2024 Temporary high blood pressure 05/18/2024 Dizziness 05/18/2024 Assessment & Plan (01/04/2025 1:41 PM EDT): Advised to maintain hydration and switch positions slowly I will prescribe for patient meclizine as needed I printed for patient information of the referral to the ENT surgeon that she can reschedule her appointment Assessment & Plan (05/18/2024 4:18 PM EDT): Drink plenty of water avoid dehydration Change positions slowly ENT and neurology referral Labs ordered F/u in 2 weeks televisit S/P abdominoplasty 04/04/2024 Assessment & Plan (04/04/2024 3:11 PM EDT): FMLA paperwork should reflect date to of return to work 06/07/2024 Migraine with aura and witho ut status migrainosus, not intractable 02/03/2024 Assessment & Plan (01/24/2025 4:41 PM EDT): I advise to avoid migraine triggers like red wine, chocolate, cheese, strong perfumes I will discontinue her amitriptyline and I will start her on topiramate 25 mg at bedtime I will refer her again to neurology for further evaluation of migraine/chronic headaches I will follow-up in 4 weeks to see if further adjustment of medication is needed Assessment & Plan (04/04/2024 4:30 PM EDT): [...] vision 04/04/2024 08/05/2024 Alopecia 08/14/2023 08/14/2023 Encounters * This document contains information received from the source organization and may not represent a complete record from that organization. Date Type Department Care Team Description 02/22/2025 Orders Only GENERIC EXTERNAL DATA DEPARTMENT Provider, Generic External Data 02/17/2025 8:40 AM EDT Office Visit [facility] [address] [place] [phone] Jaiden Powers MD Pelvic pain (Primary Dx); Nausea 02/17/2025 Travel 02/14/2025 Telephone [facility] [address] [place] [phone] Ariadne Helton MD Referral 01/24/2025 11:00 AM EDT Office Visit [address] [address] Ariadne Helton MD Migraine with aura and without status migrainosus, not intractable (Primary Dx); Anxiety with depression 01/24/2025 Travel 01/20/[address] [phone] Ariadne Helton MD Chart Prep 01/18/[address] [phone] Ariadne Helton MD Results 01/18/[address] [phone] Ariadne Helton MD Results 01/18/2025 Orders Only [facility] [address] [place] [phone] Ariadne Helton MD Positive SONYA (antinuclear antibody) (Primary Dx); Fatigue, unspecified type 01/13/2025 Patient Outreach [address] [address] Ariadne Helton MD Pre-visit Planning ([place] screening completed on 12/05/2024) 01/04/2025 Telephone [facility] [address] [place] [phone] Ariadne Helton MD Results 01/03/2025 2:30 PM EDT Office Visit [address] [address] Ariadne Helton MD Dizziness (Primary Dx); Chronic migraine with aura and with status migrainosus, not intractable; Fatigue, unspecified type 01/03/2025 Travel 01/03/[address] [address] Ariadne Helton MD Nurse Triage 12/16/2024 Population Health Risk Score [facility] ([facility]) Department [address] [place] [phone] Provider, Population Health Generic 12/06/[address] [address] Ariadne Helton MD FMLA (I called the patient, regarding a FMLA application. I informed her that the application is complete, but it cannot be faxed because she needs to sign the release of information. She stated that she will come to HIM at 3:00 pm today to sign the release, and request a copy of the application.) 12/05/2024 10:45 AM EST Office Visit [address] [phone] Ariadne Helton MD Injury of right knee, initial encounter (Primary Dx); Sprain of medial collateral ligament of right knee, initial encounter 12/05/2024 Orders Only [facility] [address] [place] [address] Ariadne Helton MD Migraine with aura and without status migrainosus, not intractable (Primary Dx) 12/05/2024 Travel 12/02/2024 Telephone [facility] [address] [place] [address] Ariadne Helton MD Chart Prep 11/29/2024 Telephone [facility] [address] [place] [address] Ariadne Helton MD FMLA (I called the [...] for 12/05/24 at 10:[address] Lamb.) from Last 3 Months Immunizations Immunization Administration Dates Next Due Influenza, IIV3, injectable [...] (185 lb) 02/17/2025 8:47 AM EDT Height 157.5 cm (5' 2 ) 01/24/2025 10:53 AM EDT Body Mass Index 33.84 01/24/2025 10:53 AM EDT Plan of Treatment Upcoming Encounters Date Type Department Care Team (Late st Contact Info) Description 03/03/2025 11:00 AM EDT Telemedicine [facility] [address] [place] [address] Ariadne Helton MD [address] [place] [address] Health Maintenance Due Date Last Done Comments Disability Screening 1990 Family Planning (PISQ) 12/18/2006 Hepatitis B Vaccines (1 of 3 - 19+ 3-dose series) 12/18/2010 COVID-19 Vaccine (1 - 2023-2 5 season) 2024 Influenza Vaccine (#1) 2024 5, 01/10/2015 DTaP/Tdap/Td Vaccines (2 - T d or Tdap) 06/22/2025 06/22/2015 Alcohol/Substance Use Screening 12/05/2025 12/05/2024 SDOH Screening 12/05/2025 12/05/2024 Depression Screening 01/24/2026 01/24/2025, 01/24/2025 Tobacco Screening 01/24/2026 01/24/2025 Cervical Cancer Screening 10/28/2028 HPV/Cotest 10/28/2028 10/28/2023 Pap Smear 10/28/2028 10/28/2023, 10/28/2023 Lipid Panel 05/18/2029 05/18/2024 Zoster Vaccines (1 of 2) 12/18/2041 RSV Patients and Patients Aged 60 years or older (1 - 1-dose 75+ series) 12/18/2066 HIV Screening Completed 01/03/2025, 07/31/2023, 01/02/2023 Hepatitis C Screening Completed 01/03/2025 HIB Vaccines Aged Out No longer eligi [...] patient's age to complete this topic Meningococcal B Vaccine Aged Out No l onger eligible based on patient's age to complete [...] Procedure Name Priority Date/Time Associated Diagnosis Comments MAGNESIUM Routine 02/22/2025 12:25 PM EDT BASIC METABOLIC PANEL Routine 02/22/2025 12:25 PM EDT HEPATIC FUNCTION PANEL Routine 12:25 PM EDT HIGH SENSITIVITY TROPONIN I Routine 02/22/2025 12:25 PM EDT CBC WITH AUTO DIFFERENTIAL Routine 02/22/2025 12:25 PM EDT SARS COV2/INFLUENZA A/B AND RSV RNA QL NAAT Routine 02/22/2025 12:25 PM EDT XR CHEST 2 VIEWS Routine 02/22/2025 11:4 1 AM EDT POCT , URINE Routine 02/17/2025 9:25 AM EDT Pelvic pain POCT URINALYSIS DIPSTICK Routine 02/17/2025 9:24 AM EDT Pelvic pain VITAMIN D,25-OH,TOTAL,IA Routine 01/03/2025 3:29 PM EDT Fatigue, unspecified type SONYA SCREEN, IFA, W/REFL TITER AND PATTERN Routine 01/03/2025 3:29 PM EDT Fatigue, unspecified type HIV 1/2 ANTIGEN/ANTIBODY, FOURTH GENERATION W/RFL Routine 01/03/2025 3:29 PM EDT Fatigue, unspecified type TSH W/REFLEX TO FT4 Routine 01/03/2025 3 :29 PM EDT Fatigue, unspecified type HEPATITIS PANEL, GENERAL Routine 01/03/2025 3:29 PM EDT Fatigue, unspecified type HEMOGLOBIN A1C Routine 01/03/2025 3:29 PM EDT Fatigue, unspecified type COMPREHENSIVE METABOLIC PANEL Routine 01/03/2025 3:29 PM EDT Fatigue, unspecified type VITAMIN B12/FOLATE, SERUM PANEL Routine 01/03/2025 3:29 PM EDT Fatigue, [...] EST Encounter for screening for cervical cancer from Last 3 Months or Most Recently Relevant to Health Maintenance Results * High Sensitivity Troponin I (02/22/2025 12:25 PM EDT) [facility] TROPONIN I HIGH SENSITIVITY <2.7 <3.5 - 17.0 ng/L [facility] Comment:The Bell high sens itivity Troponin-I results should beused in conjunction with other diagnostic information suchas ECG, clinical observations and information, and patientsymptoms to aid in the diagnosis of AK. 02/22/2025 12:2 5 PM EDT 02/22/2025 12:28 PM EDT us Generic External Data Provider LAB BLOOD ORDERAB LES Final Result [facility] [address] [place] [phone] * SARS-CoV-2 RNA, Influenza A/B, and RSV RNA, Ql NAAT (02/22/2025 12:25 PM EDT) Pathologist [facility] Influenza A PCR NEGATIVE Negative [facility] Influenza B PCR NEGATIVE Negative [facility] Resp Syncy Virus RNA Qual PCR NEGATIVE Negative [facility] SARS COV2 PCR NEGATIVE Negative [facility] Comment:All test results mus t [...] use by authorized laboratories.Testing performed on the [employer] GeneXpert utilizingreal-time RT-PCR.All SARS CoV2 and positive influenza A/B results arereported to [facility]. 02/22/2025 12:2 5 PM EDT 02/22/2025 12:28 PM EDT Generic External Data Provider LAB MICROBIOLOGY - GENERAL ORDERABLES Final Result [facility] [address] [place] [phone] * (ABNORMAL) CBC auto differential (02/22/2025 12:25 PM EDT) Only the most recent of2 resultswithin the time period is included. White Blood Count 3.5(L) 4.8 - 10.8 X10*3/uL [facility] Red Blood Count 4.26 4.20 - 5.50 X10*6/uL [facility] Hemoglobin 12.4 12.0 - 16.0 g/dl [facility] Hematocrit 36.2(L) 37.0 - 47.0 % [facility] Mean Corpuscular Volume 85.0 80.0 - 98.0 fL [facility] Mean Corpuscular Hemoglobin 29.1 27.0 - 33.0 pg [facility] Mean Corpuscular HGB Conc 34.3 31.0 - 35.0 g/dl [facility] Red Cell Distribution Width 12.8 11.0 - 16.0 % [facility] Platelet Count 255 160 - 400 X10*3/uL [facility] Mean Platelet Volume 9.5 9.4 - 12.3 fL [facility] Neutrophils Percent Auto 62.9 45 - 73 % [facility] Imm Gran Pct Auto 0.3 0.0 - 0.4 % [facility] Lymphocytes Percent Auto 21.2 20 - 40 % [facility] Monocytes Percent Auto 10.2 2 - 11 % [facility] Eosinophils Percent Auto 3.7 0 - 4 % [facility] Basophils Percent Auto 1.7 0 - 2 % [facility] NRBC Pct Auto 0.0 0.0 - 0.2 /100WBC [facility] Neutrophils Absolute Auto 2.2 2.0 - 8.3 x10*3/uL [facility] Imm Gran Abs Auto 0.01 0.00 - 0.03 X10*3/uL [facility] Lymphocytes Absolute Auto 0.8(L) 1.2 - 4.9 X10*3/uL [facility] Monocytes Absolute Auto 0.4 0.1 - 1.2 X10*3/uL [facility] Eosinophils Absolute Auto 0.1 0.0 - 0.4 X10*3/uL [facility] Basophils Absolute Auto 0.1 0.0 - 0.2 X10*3/uL [facility] NRBC Abs Auto 0.000 0.0 - 0.012 X10*3/uL [facility] 02/22/2025 12:2 5 PM EDT 02/22/2025 12:28 PM EDT us Generic External Data Provider LAB BLOOD ORDERAB LES Final Result [facility] [address] [place] [phone] * XR Chest 2 Views (02/22/2025 11:41 AM EDT) Anatomical Region Laterality Modality Chest Radiographic Yamini ging 02/22/2025 11:4 1 AM EDT Narrative 02/22/2025 12:16 PM EDT ? [facility] ?[address] ?[place] [address] ?XRay Report ? Signed ? Patient: Ender,Anabel ?MR#: [id number] ?? 8 ? : 1990 ?Acct:[id number] ? Age/Sex: 34 / F ?ADM Date: 02/22/25 ? Loc: HO.ED ? Attending Dr: ? Ordering Physician: Samantha Couch ?? Date of Service: 02/22/25 ?? Procedure(s): XR chest 2V ?? Accession Number(s): [id number] ? cc: Ariadne Helton MD; Samantha Couch ? EXAMINATION: ?? XR CHEST ? CLINICAL INFORMATION: ?? cp ? COMPARISON: ?? September 01, 2023. ? TECHNIQUE: ?? 2 views of the chest were obtained. ? FINDINGS: ?? No hyperinflation. ?? No consolidation pleural effusion or pneumothorax. Cardiomediastinal ?? silhouette size is normal. ?? Osseous structures are intact. ?? Patient's large body habitus. Vascular clips in the right upper ?? quadrant abdomen likely cholecystectomy procedure. ? XR/XR chest 2V ?? IMPRESSION: ?? No acute airspace disease. ? Electronically signed by: ??Gil García MD ??02/22/2025 12:14 PM ?? EDT RP ? Dictated By: ?Gil Mcrae MD ? Signed By: ?<Electronically signed by Gil Mayfield MD in OV> ? 02/22/25 1214 ? DD/ 1141 ? TD/TT: 02/22/25 1204 ? Commercial Energy Auditor: ? Procedure Note Mitch Rivas - 02/22/[address] [address] XRay Report Signed Patient: Anabel HandleyMR#: [id number] 8 : 1990Acct:[id number] Age/Sex: 34 / FADM Date: 02/22/25 Loc: HO.ED Attending Dr: Ordering Physician: Samantha Couch Date of Service: 02/22/25 Procedure(s): XR chest 2V Accession Number(s): [id number] cc: Ariadne Helton MD; Samantha Couch EXAMINATION: XR CHEST CLINICAL INFORMATION: cp COMPARISON: September 01, 2023. TECHNIQUE: 2 views of the chest were obtained. FINDINGS: No hyperinflation. No consolidation pleural effusion or pneumothorax. Cardiomediastinal silhouette size is normal. Osseous structures are intact. Patient's large body habitus. Vascular clips in the right upper quadrant abdomen likely cholecystectomy procedure. XR/XR chest 2V IMPRESSION: No acute airspace disease. Electronically signed by: Gil García MD 02/22/2025 12:14 PM EDT RP Dictated By: Gil Mcrae MD Signed By: <Electronically signed by Gil Mayfield MDin OV> 02/22/25 1214 DD/ 1141 TD/TT: 02/22/25 1204 Commercial Energy Auditor: [facility] External Provider IMG XR PROCEDURES Final Result * POCT , urine manually resulted (02/17/2025 9:25 AM EDT) Preg Test, Ur Negative Negative, Indeterminate, None Detected, Invalid, Specimen unsatisfactory for evaluation, Weakly Positive, 2+ Urine 02/17/2025 9:25 AM EDT Jaiden Powers MD POINT OF CARE TEST [...] TEST ENTER/EDIT OR DERABLES Final Result * Vitamin D, 25-Hydroxy, Total, Immunoassay (01/03/2025 3:29 PM EDT) Vitamin D 25-OH Total 39.8 >30 ng/mL [facility] Comment: Health Based Reference Values*< 20 ??ng/mL ??[id number] ng/mL ??Insufficient> 30 ??ng/mL ??Sufficient*Waleska SMITH. N [...] Krueger MD LAB BLOOD ORDERABLES Final Result [facility] [address] [place] [address] [phone] * (ABNORMAL) Vitamin B12 (Cobalamin) and Folate Panel, Serum (01/03/2025 3:29 PM EDT) Pathologist [facility] Vitamin B12 >2,000(H ) 200 - 900 pg/mL [facility] Comment:NORMAL 200-900 PG/ML INDETERMINATE 160-199 PG/ML DEFICIENT < 160 PG/ML Folate >20.0 > or = 4.0 ng/mL [facility] Comment:Reference Values:> o r = 4.0 ng/mL< 4.0 ng/mL suggests folate deficiency Methotrexate, aminopterin and folinic acid(leucovorin) are chemotherapeutic agents whose molecularstructures are similar to folate; therefore, the Architectfolate assay cannot be used for patients using these drugs. Blood Venous blood specimen / Unknown 01/03/2025 3:29 PM EDT 01/03/2025 4:07 PM EDT us Ariadne Krueger MD LAB BLOOD ORDERABLES Final Result Performing Organization Address [facility] Co de Phone Number [facility] [address] [place] [phone] * TSH with Reflex to Free T4 (01/03/2025 3:29 PM EDT) [facility] TSH reflex Free T4 1.29 0.32 - 4.0 uIU/mL [facility] Blood Venous blood specimen / Unknown 01/03/2025 3:29 PM EDT 01/03/2025 4:07 PM EDT Ariadne Krueger MD LAB BLOOD ORDERABLES Final Result Performing Organization Address [facility] Co de Phone Number [facility] [address] [place] [phone] * Hepatitis Panel, General (01/03/2025 3:29 PM EDT) [facility] Hepatitis A IgM Nonreactive Nonreactive [facility] Comment:IgM antibodies to HERNANDEZ V not detected; does not exclude earlyacute or recovered HAV infection. ~Hepatitis B Surface Antibody REACTIVE Nonreactive [facility] Comment:REACTIVE: > 11.99 mI U/mL Hepatitis B Core Antibody Nonreactive Nonreactive [facility] Hepatitis C Antibody Nonreactive Nonreactive [facility] Comment:Antibodies to HCV no t detected; does not exclude early acuteHCV infection. Hepatitis B Surface Ag Negative Negative [facility] Blood Venous blood specimen / Unknown 01/03/2025 3:29 PM EDT 01/03/2025 4:07 PM EDT Ariadne Krueger MD LAB BLOOD ORDERABLES Final Result Performing Organization Address [facility] Co de Phone Number [facility] [address] [place] [phone] * Iron And Total Iron Binding Capacity (01/03/2025 3:29 PM EDT) Iron 60 30 - 160 mcg/dL [facility] Total Iron Binding Capacity 328 228 - 428 mcg/dL [facility] Percent Iron Saturation 18 15 - 50 % [facility] Unsaturated Iron Binding 268 ug/dL [facility] Blood Venous blood specimen / Unknown 01/03/2025 3:29 PM EDT 01/03/2025 4:07 PM EDT us Ariadne Krueger MD LAB BLOOD ORDERABLES Final Result Performing Organization Address [facility] Co de Phone Number [facility] [address] [place] [phone] * HIV-1/2 Antigen and Antibodies, Fourth Generation, with Reflexes (01/03/2025 3:29 PM EDT) HIV AB/AG Nonreactive Nonreactive [facility] Comment:HIV-1 p24 Ag and/or HIV-1/HIV-2 Ab not detected.A test result that is nonreactive does not exclude thepossibility of exposure to or infection with HIV-1 and/orHIV-2. Nonreactive results in this assay for individualswith prior exposure to HIV-1 and/or HIV-2 may be due toantigen and antibody levels that are below the limit ofdetection of this assay.The [employer] HIV Ag/Ab Combo assay result andsupplemental assay results should be interpreted inconjunction with the patient's clinical presentation,history and other laboratory results. If the results areinconsistent with clinical evidence, additional testing issuggested to confirm the result. Blood Venous blood specimen / Unknown 01/03/2025 3:29 PM EDT 01/03/2025 4:07 PM EDT Ariadne Krueger MD LAB BLOOD ORDERABLES Final Result [facility] [address] [place] [phone] * (ABNORMAL) SONYA Screen,IFA, with Reflex to Titer and Pattern (01/03/2025 3:29 PM EDT) Anti Nuclear Antibody Screen POSITIVE (A) NEGATIVE [facility] Comment:SONYA IFA is a first l ine screen for detecting thepresence of up to approximately 150 autoantibodies invarious autoimmune diseases. A positive SONYA IFA resultis suggestive of autoimmune disease and reflexes totiter and pattern. Further laboratory testing may beconsidered if clinically indicated.For additional information, please refer tohttp://education.Ticketbis/faq/ABJ849(This link is being provided for informational/educational purposes only.) SONYA Titer 1:40(A) titer [facility] Comment:A low level SONYA tite r may be present in pre-clinicalautoimmune diseases and normal individuals. Reference Range <1:40 Negative 1:40-1:80 Low Antibody Level >1:80 Elevated Antibody Level SONYA Pattern Nuclear, Speckled (A) [facility] Comment:Speckled pattern is associated with mixed connectivetissue disease (MCTD), systemic lupus erythematosus(SLE), Sjogren's syndrome, dermatomyositis, andsystemic sclerosis/polymyositis overlap.AC-2,4,5,29: SpeckledInternational Consensus on SONYA Patterns(https://doi.org/10.1515/[email or web address])THIS TEST WAS PERFORMED AT:[facility] [place] [phone] SUMNER MD SONYA TITER 2 (REF LAB) [facility] S[facility]YA [facility] 2 [facility] SONYA TITER [address] [facility] SONYA PATTERN 3 [facility] Blood Venous blood specimen / Unknown 01/03/2025 3:29 PM EDT 01/03/2025 4:07 PM EDT us Ariadne Krueger MD LAB BLOOD ORDERABLES Final Result Performing Organization Address [facility] Co de Phone Number [facility] [address] [place] [phone] * Hemoglobin A1c (01/03/2025 3:29 PM EDT) Hemoglobin A1c 5.3 <6.0 % [facility] Comment:Hemoglobin A1C Refer ence Range Adults: 4.8 - 6.0 % Non diabetic: < 6.0 % Goal: < 7.0 %Additional Action Suggested: > 8.0 %Note: Hemoglobin A1c results are invalid for patients with abnormal amounts of HbF. Blood transfusions may impact the HbA1c concentration in the patient sample. Estimated Average Glucose 105 mg/dL [facility] Comment:eAG = Estimated ave rage glucose which is %A1C expressed asaverage glucose, using the formula of the U2E-UmrqrfbIbhhglg Glucose study (ADAG), Diabetes Care, Vol.31,#8,May. 2007 Blood Venous blood specimen / Unknown 01/03/2025 3:29 PM EDT 01/03/2025 4:07 PM EDT us Ariadne Krueger MD LAB BLOOD ORDERABLES Final Result Performing Organization Address [facility]/ZIP Co de Phone Number [facility] [address] [place] [phone] * Ferritin (01/03/2025 3:29 PM EDT) Ferritin 41 10 - 122 ng/mL [facility] Blood Venous blood specimen / Unknown 01/03/2025 3:29 PM EDT 01/03/2025 4:07 PM EDT Ariadne Krueger MD LAB BLOOD ORDERABLES Final Result [facility] [address] [place] [phone] * (ABNORMAL) Comprehensive Metabolic Panel (01/03/2025 3:29 PM EDT) Sodium 138 135 - 145 mmol/L [facility] Potassium 3.7 3.3 - 5.1 mmol/L [facility] Chloride 107 96 - 108 mmol/L [facility] Carbon Dioxide 26 22 - 29 mmol/L [facility] Anion Gap 9(L) 12 - 20 [facility] Urea Nitrogen (BUN) 13 9 - 16 mg/dL [facility] Creatinine, Serum 0.67 0.5 - 1.4 mg/dL [facility] Estimated Glomerular Filt Rate >60 [facility] Comment:Chronic Kidney Disea se: Estimated GFR < 60 mL/min/1.36v1Pcdpbu Kidney Disease: Estimated GFR < 15 mL/min/1.73m2 Glucose 74 60 - 115 mg/dL [facility] Calcium 9.3 8.4 - 10.2 mg/dL [facility] Bilirubin, Total 0.2 0.0 - 1.0 mg/dL [facility] Aspartate Amino Transferase 21 5 - 31 U/L [facility] Alanine Aminotransferase 17 0 - 31 U/L [facility] Total Protein 7.3 6.5 - 8.0 g/dL [facility] Albumin Level 4.0 3.5 - 5.0 g/dL [facility] Alkaline Phosphatase 67 39 - 117 U/L [facility] Blood Venous blood specimen / Unknown 01/03/2025 3:29 PM EDT 01/03/2025 4:07 PM EDT us Ariadne Krueger MD LAB BLOOD ORDERABLES Final Result Performing Organization Address [facility] Co de Phone Number [facility] [address] [place] [phone] * Lipid Panel with Reflex to Direct LDL (05/18/2024 12:58 PM EDT) Triglycerides 105 <150 mg/dL [facility] Comment:Desirable Triglyceri de: less than 150 mg/dLBorderline High Triglyceride 150-199 mg/dLHigh Triglyceride: 200-499 mg/dLVery High Triglyceride: greater than or equal to 5OO mg/dL Cholesterol 183 <200 mg/dL [facility] Comment:Desirable Cholestero l: less than 200 mg/dLBorderline High Cholesterol: 200-239 mg/dLHigh Cholesterol: greater than 239 mg/dL LDL Cholesterol Calculated 85 <100 mg/dL [facility] Comment:Desirable LDL: less than 100 mg/dLNear Optimal/Above Optimal LDL: 110- 129 mg/dLBorderline High LDL: 130-159 mg/dLHigh LDL: 160-189 mg/dLVery High LDL: greater than or equal to 190 mg/dL HDL Cholesterol 77 >40 mg/dL [facility] Comment:Desirable HDL: great er than 40 mg/dL Note: This HDL assay may give artificially low results in patients with liver disease. Blood 05/18/2024 12:5 8 PM EDT 05/18/2024 4:09 PM EDT us Ariadne Krueger MD LAB BLOOD ORDERABLES Final Result Performing Organization Address [facility]/ZIP Co de Phone Number [facility] [address] [place] [phone] * Image-Guided Pap with Age-Based Screening??with CT/NG,??Trichomonas (10/28/2023 4:20 PM EST) Pathologist [facility] Trichomonas (NAAT) NOT DETECTED NOT DETECTED [facility] Comment:The analytical perfo rmance characteristics of thisassay have been determined by [employer]. Themodifications have not been cleared or approved bythe FDA. This assay has been validated pursuant to theCLIA regulations and is used for clinical purposes.For additional information, please refer [email or web address](This link is being provided for information/educational purposes only.)THIS TEST WAS PERFORMED AT:[facility] [place] [phone] SUMNER MD CTNG Ref Lab NOT DETECTED NOT DETECTED [facility] NG Ref Lab NOT DETECTED NOT DETECTED [facility] 10/28/2023 4:20 PM EST 10/29/2023 12:37 PM EST Ariadne Krueger MD LAB CYTOLOGY ORDERABL ES Final Result [facility] [address] [place] [phone] * HPV mRNA E6/E7 w/Reflex to HPV Genotypes 16, 18/45 (10/28/2023 4:20 PM EST) Pathologist [facility] HPV nRNA E6/E7 Not Detected Not Detected [facility] Comment:Methodology: Transcr iption-Mediated AmplificationThis assay detects E6/E7 viral messenger RNA (mRNA) from 14high-risk HPV types (16,18,31,33,35,39,45,51,52,56,58,59,66,68).Cervical sources are required for HPV testing.If a vaginal source from a patient who has had atotal hysterectomy with removal of cervix wassubmitted, please contact the testing laboratoryfor alternative testing options.For additional information, please refer [email or web address](This link if provided for information/educational purposes only.)THIS TEST WAS PERFORMED AT:[facility] [place] [phone] SUMNER MD HPV mRNA E6/E7 [facility] HPV 16 RNA [facility] HPV 18/45 RNA [facility] 10/28/2023 4:20 PM EST 10/29/2023 8:00 AM EST Ariadne Krueger MD LAB CYTOLOGY ORDERABL ES Final Result [facility] [address] [place] [phone] from Last 3 Months or Most Recently Relevant to Health Maintenance Insurance [employer] C3 Member Subscriber Plan / Payer (Ef fective 2023-Present) Name:Anabel Handley Relation to Subscriber:Self Name:Anabel Handley Payer ID:Not on file Group ID:Not on file Type:Medicaid Address: [place] [id number] [facility] [place] [employer] on file Care Teams Animal Behaviorist Relationship Specialty Start Date End Date Ariadne Helton MD [address] [place] [phone] PCP - General Family Medicine 03/22/20
--- OUTSIDE RECORDS SUMMARY | 2025-02-22 14:00 | XMS_ITS | Encounter Summary ---
Author Organization [employer] Address [address] [facility] [address] [place] [address] Care Team Providers Care Sewing Demonstrator Name Role Phone Ariadne Helton MD Primary Care Provide r Reason for Visit * Reason Onset Date Comments Nurse Triage 03/14/2024 Encounter Details Date Type Department Care Team ([facility] st Contact Info) Description 03/14/2024 Telephone [facility] [address] [place] [phone] Ariadne Helton MD [address] [place] [address] Nurse Triage Social History Tobacco Use Types [...] has tummy tuck surgery on 02/25/24 in [place]. Pt states that at this timeshe is [...] Reason: Caller denied all higher acuity questions Argentine Speaker Pt stated they have stitches on their stomach and she feels stitches are tearing and has caused some bleeding. documented in this encounter Plan of Treatment Upcoming Encounters Date Type Department Care Team (Late st Contact Info) Description 03/03/2025 11:00 AM EDT Telemedicine [facility] [address] [place], [place] [phone] Ariadne Helton MD [address] [place] [phone] documented as of this encounter Visit Diagnoses Not on filedocumented in this encounter Additional Health Concerns Assessment Noted Time PHQ-9 Depression Total Score: 0 02/03/20 24 2:36 PM EDT documented as of this encounter Care Teams Sewing Demonstrator Relationship Specialty Start Date End Date Ariadne Helton MD [address] [place] [address] [phone] PCP - General Family Medicine 03/22/20 documented as of this encounter
--- OUTSIDE RECORDS SUMMARY | 2025-02-22 14:00 | XMS_ITS | Encounter Summary ---
Author Organization [employer] Address [address] [facility] [address] [place] [address] Care Team Providers Care Hat Braider Name Role Phone Ariadne Helton MD Primary Care Provide r Reason for Visit * Reason Onset Date Comments triage 10/14/2022 Encounter Details Date Type Department Care Team ([facility] st Contact Info) Description 10/14/2022 Telephone [facility] [address] [place] [address] Ariadne Helton MD [address] [place] [address] triage Social History Tobacco Use Types Packs/Day [...] 10/14/2022 1:14 PM EST Triage call with [employer] Administrator ID [id number]. Pt reports right shoulder pain for last [...] and using ice/heat. 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 appt with Dr. Barrientos 10/23 [...] 48 Hours * Telephone Encounter - Myron Angulo - 10/14/2022 12:30 PM EST Symptoms: Arm [...] Info) Description 03/03/2025 11:00 AM EDT Telemedicine [facility] [address] [place] [address] Ariadne Helton MD [address] [place] [address] documented as of this encounter Visit Diagnoses Not on filedocumented in this encounter Care Teams Hat Braider Relationship Specialty Start Date End Date Ariadne Helton MD [address] [place] [phone] PCP - General Family Medicine 03/22/20 documented as of this encounter
[2025-02-22 14:01] VITALS: BP 108/61; BP 113/63; BP 124/76
[2025-02-22 14:09] LABS: Albumin Level 3.8 g/dL (3.5-5.0); Bilirubin Total 0.3 mg/dL (0.0-1.0); Creatinine Clr Calc Pharmacy 125.6; Estimated Glomerular Filt Rate > 60
[2025-02-22 14:50] VITALS: BP 124/76; PULSE 86; RESP 18; TEMP 36.7; O2SAT 100
[2025-02-22 15:04] LABS: Appearance Urine Clear; Color Urine Yellow; Glucose Urine UA Negative (Negative); Leukocyte Esterase Urine Trace (Negative); Nitrite Urine Negative (Negative); PH 6.5 (5.0-9.0); UMIC TRIGGER UACC YES; Urine Blood Negative (Negative); Urine Ketones Negative (Negative); Urine Protein Negative (Neg-Trace)
[2025-02-22 15:06] LABS: Bacteria Urine None Seen (None Seen); Hyaline Casts Urine 0-2 /LPF (0-2); RBC Urine 0-2 /HPF (0-2); WBC Urine 0-5 /HPF (0-5)
== END 2025-02-22 14:59 | disposition home or self-care (01) ==
PROVIDERS: Physician Assistant; Emergency Provider Emergency Medicine; PCP Internal Medicine
DX: H81.10 Benign paroxysmal vertigo, unspecified ear (principal); R51.9 Headache, unspecified; R11.2 Nausea with vomiting, unspecified; H57.13 Ocular pain, bilateral; R07.89 Other chest pain; Z03.818 Encounter for observation for suspected exposure to other biological agents ruled out; Z79.899 Other long term (current) drug therapy
CPT/HCPCS: 0241U; 36415; 71046; 80048; 80076; 81001; 83735; 84484; 85025; 93005; 99283; 99284

== ENCOUNTER → 2025-02-22 11:40 | Outpatient (BNV) | payer MEDICAID, SELFPAY | PROVIDERS: Emergency Provider Emergency Medicine; PCP Internal Medicine; Visit Provider Internal Medicine Cardiovascular Disease | DX: R07.9 Chest pain, unspecified (principal) | CPT/HCPCS: 93010 ==

== ENCOUNTER → 2025-02-22 11:41 | Outpatient (BNV) | payer MEDICAID, SELFPAY | PROVIDERS: PCP Internal Medicine; Visit Provider Radiology Diagnostic Radiology | DX: R07.9 Chest pain, unspecified (principal) | CPT/HCPCS: 71046 ==

== ENCOUNTER 2025-07-12 07:48 | Emergency (ER) | payer MEDICAID, SELFPAY ==
--- NOTE | ~2025-07-12 | CT_ITS ---
EXAMINATION: CT ABDOMEN PELVIS WITH IV CONTRAST HISTORY: umbilical pain, RUQ/LLQ pain *no iv 0909a * COMPARISON: There are no prior studies for available comparison. TECHNIQUE: CT scan of the abdomen and pelvis was performed following administration of 85 mL Omnipaque 350 using standard departmental protocol. Coronal and sagittal reformatted images were generated and reviewed. Oral contrast material was not administered at the request of the referring physician. This CT exam was performed with one or more of the following dose reduction techniques: automated exposure control, adjustment of the mA and/or kV according to patient size, use of iterative reconstruction technique. DLP: 793 mGy-cm FINDINGS: LOWER CHEST: The visualized lung bases are clear. There is no pleural effusion. CARDIOVASCULATURE: The heart is normal in size. There is no pericardial effusion. LIVER: The liver is normal in size and contour. No liver mass is identified. The hepatic and portal veins are patent. GALLBLADDER / BILE DUCTS: The gallbladder is surgically absent. There is no intra or extrahepatic biliary ductal dilatation. SPLEEN: The spleen is normal in size. No focal splenic lesion is identified. PANCREAS: The pancreas is unremarkable in appearance. ADRENAL GLANDS: Within normal limits. KIDNEYS/RETROPERITONEUM: No renal calculi are identified. There is no hydronephrosis. No renal masses are identified. LYMPH NODES: No abdominal or pelvic lymphadenopathy. VASCULATURE: The abdominal aorta is normal in caliber. MESENTERY/PERITONEUM: No free fluid. No masses. There is no free intraperitoneal gas. STOMACH: The stomach is unremarkable. SMALL BOWEL: The small bowel is normal in caliber. COLON: There is a moderate amount of stool throughout the colon. APPENDIX: Normal. URINARY BLADDER/PELVIC ORGANS: The urinary bladder is unremarkable. The uterus and left ovary unremarkable. There are probable multiple right ovarian follicles measuring up to 2.1 cm in size. BONES / SOFT TISSUES: No suspicious bony or soft tissue abnormalities. CT/CT abdomen pelvis w IV con IMPRESSION: Moderate amount of stool throughout the colon. No inflammatory process is identified. Electronically signed by: Rudi Nobles MD 07/12/2025 10:21 AM EDT
[2025-07-12 08:10] VITALS: BP 104/53; PULSE 51; RESP 16; TEMP 36.6; O2SAT 97; BMI 33.1
[2025-07-12 08:32] LABS: MANUAL DIFF FLAG NO
[2025-07-12 08:34] LABS: Hematocrit 40.7 % (37.0-47.0); Hemoglobin 13.5 g/dl (12.0-16.0); Imm Gran Abs Auto 0.02 X10*3/uL (0.00-0.03); Imm Gran Pct Auto 0.2 % (0.0-0.4); Lymphocytes Absolute Auto 2.4 X10*3/uL (1.2-4.9); Mean Corpuscular HGB Conc 33.2 g/dl (31.0-35.0); Mean Corpuscular Hemoglobin 28.9 pg (27.0-33.0); Mean Corpuscular Volume 87.2 fL (80.0-98.0); NRBC Abs Auto 0.000 X10*3/uL (0.0-0.012); NRBC Pct Auto 0.0 /100WBC (0.0-0.2); Platelet Count 339 X10*3/uL (160-400); Red Blood Count 4.67 X10*6/uL (4.20-5.50); White Blood Count 8.2 X10*3/uL (4.8-10.8)
[2025-07-12 08:34] LABS: Appearance Urine Clear; Glucose Urine UA Negative (Negative); PH 5.5 (5.0-9.0); Specific Gravity - Urine 1.025 (1.005-1.025)
[2025-07-12 08:37] LABS: UPreg QC Valid YES
[2025-07-12 08:50] LABS: Alanine Aminotransferase 15 U/L (0-31); Albumin Level 4.0 g/dL (3.5-5.0); Alkaline Phosphatase 69 U/L (39-117); Anion Gap 9 (12-20); Aspartate Amino Transferase 21 U/L (5-31); Blood Urea Nitrogen 11 mg/dL (9-16); Calcium 8.6 mg/dL (8.4-10.2); Carbon Dioxide 25 mmol/L (22-29); Chloride 110 mmol/L (96-108); Creatinine Clr Calc Pharmacy 110.2; Estimated Glomerular Filt Rate > 60; Lipase 33 U/L (8-78); Potassium 4.1 mmol/L (3.3-5.1); Sodium 140 mmol/L (135-145); Total Protein 6.8 g/dL (6.5-8.0)
--- NOTE | 2025-07-12 09:03 | ECG_ITS ---
Test Reason : CP Blood Pressure : */* mmHG Vent. Rate : 54 BPM Atrial Rate : 54 BPM P-R Int : 140 ms QRS Dur : 72 ms QT Int : 420 ms P-R-T Axes : 52 46 33 degrees QTcB Int : 398 ms Sinus bradycardia with sinus arrhythmia Otherwise normal ECG When compared with ECG of 22-Feb-2025 12:16, Vent. rate has decreased by 27 bpm Referred By: Roseline De Electronically Signed By: EAGLE SMITH MD
--- NOTE | 2025-07-12 09:03 | ED.ABDPAIN ---
HPI - Abdominal Pain General Chief Complaint: Abdominal Pain Stated Complaint: L sided abd pain Time Seen by Provider: 07/12/25 08:31 Source: patient, RN notes reviewed and aerial photograph interpreter Mode of arrival: ambulatory Limitations: language barrier History of Present Illness ED Provider: Roseline De PA-C HPI narrative: This is a 34-year-old Wallisian-speaking female, with a past medical history of vertigo, who presents emergency department with concerns of right-sided abdominal pain which started 6 days ago. Patient states that she has had a constant right-sided abdominal pain, which is sharp in nature and occasionally will radiate into her back. She states that she does not have a history of similar symptoms in the past. Pain worsens with positional changes. She denies any fevers, chills, shortness for breath, nausea, vomiting, diarrhea or constipation. No urinary symptoms. No abnormal vaginal discharge or bleeding. Denies history of similar symptoms in the past. She states that she has had 3 sections, cholecystectomy, as well as two tummy tucks , however states that she never had any complications with the surgeries, and states that none of the surgeries were recent. Expressed CP which occurred earlier today, however reports no current CP. Denies taking any medications prior to arrival today. No other complaints or concerns at this time. MD elicited complaint: abdominal pain Onset (ago): day(s) Pain Consistency: constant Location: none Severity: moderate Quality: stabbing Radiation: RUQ and R flank Migration to: periumbilical Exacerbating factors: movement Relieving factors: rest Associated symptoms: denies other symptoms Related Data Previous Rx's ?Medication ?Instructions ?Recorded meloxicam 15 mg tablet 15 mg PO DAILY #10 tabs 04/02/23 cyclobenzaprine 10 mg tablet 10 mg PO TID PRN muscle spasm #20 09/01/23 tabs metronidazole 500 mg tablet 500 mg PO BID #14 tabs 09/05/23 nystatin 100,000 unit/gram topical 1 appl topical BID #15 grams 04/01/24 cream meclizine 12.5 mg tablet 12.5 mg PO TID PRN vertigo 5 days 02/22/25 #20 tabs scopolamine base 1 mg over 3 days 1 patch transdermal Q3D PRN 02/22/25 transdermal patch vertigo 7 days #4 ea acetaminophen 500 mg tablet 1,000 mg (2 x 500 mg) PO Q8H PRN 07/12/25 (Tylenol Extra Strength) pain #30 tabs docusate sodium 100 mg capsule 100 mg PO DAILY #14 caps 07/12/25 polyethylene glycol 3350 17 17 g PO DAILY 2 weeks #238 grams 07/12/25 gram/dose oral powder (Miralax) Allergies Allergy/AdvReac Type Severity Reaction Status Date / Time aspirin (Aspirin) Allergy Unknown RASH Verified 07/12/25 08:13 Review of Systems Review of Systems Constitutional : No Fever, No Chills ENT/Mouth : No sore throat, No Rhinorrhea Eyes: No Eye Pain, No Swelling, No Redness Cardiovascular : No Chest Pain, No SOB Respiratory : No Cough, No Sputum Gastrointestinal : No Nausea, No Vomiting, No Diarrhea, + abdominal Pain Genitourinary : No Dysuria, No Hematuria Musculoskeletal : No joint pain, No Myalgias, No Joint Swelling Skin : No Skin Lesions Neuro : No Weakness, No Numbness, No Headache All other systems reviewed and are negative Yes all other systems are reviewed and are negative Constitutional: Reports as per [facility] Past Medical History Attestation statement: The following information was validated with the patient. Medical History Acute UTI Surgical History Hx laparoscopic cholecystectomy Hx of section History of abdominoplasty (~02/2023) Social History Social History Alcohol intake: never Patient Tobacco Use Status: Never used Tobacco Advance Directives: No Advance Directives Information Provided: Yes Physical Exam ED Vital Signs: Vital Signs - 24 hr 07/12/25 08:10 Temperature 97.9 F Pulse Rate 51 Respiratory Rate 16 Blood Pressure 104/53 L Pulse Oximetry 97 Oxygen Delivery Method Room Air BMI result Body Mass Index 33.1 Const General: cooperative, comfortable and no acute distress Orientation/consciousness: patient oriented x3 Limitations: no limitations HENMT Head: Yes normal to inspection, Yes normocephalic and Yes atraumatic Ears: hearing grossly normal bilaterally General nose exam: Normal external nose present Face and sinus: Yes normal facial exam Mouth: Normal oral and palatal mucosa present, oropharynx normal and moist mucous membranes Throat: Yes posterior oropharynx normal Eyes General: appearance normal, both eyes and all related structures Eyelids: Yes eyelids normal Conjunctivae: conjunctivae normal Sclerae: sclerae normal Pupils: Equal, round and reactive pupils present EOM: EOMs intact bilaterally Neck Neck: Yes normal visual inspection, Yes full ROM and Yes no lymphadenopathy Lymphatic: no lymphadenopathy noted Chest Chest palpation & inspection: normal inspection of the chest Resp Effort & Inspection: normal respiratory effort and able to speak in complete sentences Auscultation: clear to auscultation bilaterally, no crackles, no rales, no rhonchi and no wheezes Cardio Rate: regular rate Rhythm: regular rhythm Heart sounds: S1 normal heart sound present and S2 normal heart sound present GI Other: Abdomen is soft, with tenderness palpation in the periumbilical region extending into the right upper quadrant as well as right lower quadrant. No rebound or guarding. No suprapubic tenderness on examination. No rebound or guarding. Inspection: Yes normal to inspection Other: Mild right CVA tenderness on examination. Skin General skin exam: no rashes or lesions noted Trauma: no lacerations or abrasions Wounds: no wounds Neuro General: patient oriented x3 and moves all extremities Cranial nerves: Yes Equal, round and reactive pupils present Extrem General: Yes normal to inspection Right upper extremity: normal to inspection Left upper extremity: normal to inspection Right lower extremity: normal to inspection Left lower extremity: normal to inspection Medical Decision Making Medical Decision Making MDM Narrative: This is a 34-year-old female, with a past medical history of vertigo, who presents emergency department with concerns of abdominal pain which started 6 days ago. On arrival, blood pressure slightly hypotensive at 104/53, all other vital signs within normal limits. She is speaking full sentences under no acute distress. Patient with tenderness palpation in the periumbilical region extending into the right lower and right upper quadrant. She has a history of a cholecystectomy. Also reporting some mild right-sided CVA tenderness. No urinary symptoms. Differential diagnoses include appendicitis, gastritis, gastroenteritis, nephrolithiasis, musculoskeletal pain. Patient does report that she had an episode of chest pain which was very brief upon arrival. She does not have any chest pain at this point. Plan: Labs, UA, EKG, further ER evaluation needed. Will obtain CT abdomen with IV contrast. Will also medicate with IV Tylenol and IV fluids. Labs returned prior to patient going to CT. She has no leukocytosis, stable H&H, chemistry revealing no significant electrolyte derangement. Urine noninfectious, no hematuria noted. Negative . Will continue to monitor pending overall symptomatic improvement and CT. EKG normal sinus rhythm with no acute ischemic changes. Troponin undetectable levels. She has no cardiac history. No active chest pain, no additional interventions or workup indicated at this time. 11:00 AM 07/12/2025 (Roseline De PA-C): Symptoms improved after receiving medications. Patient has an aspirin allergy, she is unsure if she has ever taken any NSAIDs before. Considered medicating with Toradol however given aspirin allergy, will defer at this time. Also discussed the option of treating with opioid medication however patient is well-appearing, appears to be under no acute distress, and I advised her of adverse side effects from morphine, she reports that at this time she is comfortable enough for discharge. Will treat with MiraLax and docusate. Advised to call the PCP. Advised that PCP may refer her to GI if she continues to have pain. Given strict return precautions, she understands and agrees with plan. Patient stable for discharge. Differential Diagnosis Differential Diagnoses: The differential diagnosis associated with the presentation includes See above Lab Data MDM Lab Attestation statement: I reviewed the patient's lab results. See MDM 07/12/25 08:23 07/12/25 08:23 Labs: Lab Results 07/12/25 07/12/25 07/12/25 Range/Units 08:23 08:24 08:25 WBC 8.2 (4.8-10.8) X10*3/uL RBC 4.67 (4.20-5.50) X10*6/uL Hgb 13.5 (12.0-16.0) g/dl Hct 40.7 (37.0-47.0) % MCV 87.2 (80.0-98.0) fL MCH 28.9 (27.0-33.0) pg MCHC 33.2 (31.0-35.0) g/dl RDW 13.2 (11.0-16.0) % Plt Count 339 D (160-400) X10*3/uL MPV 9.9 (9.4-12.3) fL Immature Gran % (Auto) 0.2 (0.0-0.4) % Neut % (Auto) 58.4 (45-73) % Lymph % (Auto) 28.9 (20-40) % [place] % (Auto) 6.1 (2-11) % Eos % (Auto) 5.7 H (0-4) % Baso % (Auto) 0.7 (0-2) % Lymph # (Auto) 2.4 (1.2-4.9) X10*3/uL [place] # (Auto) 0.5 (0.1-1.2) X10*3/uL Eos # (Auto) 0.5 H (0.0-0.4) X10*3/uL Baso # (Auto) 0.1 (0.0-0.2) X10*3/uL Abs Immat Gran (auto) 0.02 (0.00-0.03) X10*3/uL Absolute Neuts (auto) 4.8 (2.0-8.3) x10*3/uL Absolute Nucleated RBC 0.000 (0.0-0.012) X10*3/uL Nucleated RBC % (auto) 0.0 (0.0-0.2) /100WBC Sodium 140 (135-145) mmol/L Potassium 4.1 D (3.3-5.1) mmol/L Chloride 110 H (96-108) mmol/L Carbon Dioxide 25 (22-29) mmol/L Anion Gap 9 L (12-20) BUN 11 (9-16) mg/dL Creatinine 0.72 (0.5-1.4) mg/dL Estim Creat Clear Calc 110.2 Estimated GFR > 60 Random Glucose 96 (60-115) mg/dL Calcium 8.6 (8.4-10.2) mg/dL Total Bilirubin 0.3 (0.0-1.0) mg/dL Direct Bilirubin 0.1 (0.0-0.5) mg/dL AST 21 (5-31) U/L ALT 15 (0-31) U/L Alkaline Phosphatase 69 (39-117) U/L Troponin I High Sens < 2.7 (<3.5-17.0) ng/L Total Protein 6.8 (6.5-8.0) g/dL Albumin 4.0 (3.5-5.0) g/dL Lipase 33 (8-78) U/L Urine Color Yellow Urine Appearance Clear Urine pH 5.5 (5.0-9.0) Ur Specific [place] 1.025 (1.005-1.025) Urine Protein Negative (Neg-Trace) mg/dL Urine Glucose (UA) Negative (Negative) mg/dL Urine Ketones Negative (Negative) mg/dL Urine Blood Negative (Negative) Urine Nitrite Negative (Negative) Ur Leukocyte Esterase Negative (Negative) Urine Test NEGATIVE (NEGATIVE) Independent Interpretation I performed an independent interpretation of an: EKG Interpretation: EKG sinus bradycardic with sinus arrhythmia at a ventricular rate of 54 beats per minute, OR interval 140, QT QTC 420/398, no acute ischemic changes. Radiology Impression Discussion of test interpretation with radiology: I have reviewed the radiologist's reading. Radiologist Impression: FINDINGS: LOWER CHEST: The visualized lung bases are clear. There is no pleural effusion. CARDIOVASCULATURE: The heart is normal in size. There is no pericardial effusion. LIVER: The liver is normal in size and contour. No liver mass is identified. The hepatic and portal veins are patent. GALLBLADDER / BILE DUCTS: The gallbladder is surgically absent. There is no intra or extrahepatic biliary ductal dilatation. SPLEEN: The spleen is normal in size. No focal splenic lesion is identified. PANCREAS: The pancreas is unremarkable in appearance. ADRENAL GLANDS: Within normal limits. KIDNEYS/RETROPERITONEUM: No renal calculi are identified. There is no hydronephrosis. No renal masses are identified. LYMPH NODES: No abdominal or pelvic lymphadenopathy. VASCULATURE: The abdominal aorta is normal in caliber. MESENTERY/PERITONEUM: No free fluid. No masses. There is no free intraperitoneal gas. STOMACH: The stomach is unremarkable. SMALL BOWEL: The small bowel is normal in caliber. COLON: There is a moderate amount of stool throughout the colon. APPENDIX: Normal. URINARY BLADDER/PELVIC ORGANS: The urinary bladder is unremarkable. The uterus and left ovary unremarkable. There are probable multiple right ovarian follicles measuring up to 2.1 cm in size. BONES / SOFT TISSUES: No suspicious bony or soft tissue abnormalities. CT/CT abdomen pelvis w IV con IMPRESSION: Moderate amount of stool throughout the colon. No inflammatory process is identified. Electronically signed by: Rudi Nobles MD 07/12/2025 10:21 AM EDT RP Dictated By: Rudi Nobles MD Medications Administered Discontinued Medications Generic Name Dose Route Start Last Admin Trade Name Freq PRN Reason Stop Dose Admin Sodium Chloride 1,000 mls @ 999 mls/hr 07/12/25 09:02 07/12/25 10:35 Ns IV 07/12/25 10:02 Infused .Q1H1M ONE Infusion Acetaminophen 1,000 mg in 100 mls @ 400 mls/hr 07/12/25 09:02 07/12/25 10:35 Ofirmev IV 07/12/25 09:16 Infused ONCE ONE Infusion Iohexol 100 ml 07/12/25 09:54 07/12/25 09:55 Iohexol 350 Mg/Ml 100 Ml Infus..Btl IV 07/12/25 09:55 85 ml ONCE ONE Administration Discharge Plan Discharge Clinical Impression: Abdominal pain, Constipation Patient Disposition: Home, Self-Care Instructions: Abdominal Pain (ED) Additional Instructions: You were seen in the emergency department due to abdominal pain. Your CT scan was reviewed revealing a moderate amount of stool throughout the colon. There is no inflammatory process seen. Please take prescribed medication as directed. Docusate is a stool softener take this as prescribed. You may also take MiraLax, this is a laxative. If you develop severe diarrhea discontinue both of these medications. Please drink plenty of fluids get plenty of rest. Take Tylenol as needed for pain. Please call your primary care physician for follow-up. If any new or worsening symptoms occur including but not limited to worsening pain, high fevers, vomiting, please return for re-evaluation. Prescriptions: New polyethylene glycol 3350 [Miralax] 17 gram/dose powder 17 g PO DAILY 14 Days Qty: 238 0RF docusate sodium 100 mg capsule 100 mg PO DAILY Qty: 14 0RF acetaminophen [Tylenol Extra Strength] 500 mg tablet 1,000 mg PO Q8H PRN (Reason: pain) Qty: 30 0RF No Action metronidazole 500 mg tablet 500 mg PO BID Qty: 14 0RF scopolamine base 1 mg over 3 days patch 3 day 1 patch transdermal Q3D PRN (Reason: vertigo) 7 Days Qty: 4 0RF meclizine 12.5 mg tablet 12.5 mg PO TID PRN (Reason: vertigo) 5 Days Qty: 20 0RF meloxicam 15 mg tablet 15 mg PO DAILY Qty: 10 0RF cyclobenzaprine 10 mg tablet 10 mg PO TID PRN (Reason: muscle spasm) Qty: 20 0RF nystatin 100,000 unit/gram cream 1 appl topical BID Qty: 15 0RF Stand Alone Forms: Work/School Release Print Language: Wallisian
[2025-07-12 09:34] LABS: Troponin-I High Sensitivity < 2.7 ng/L (<3.5-17.0)
[2025-07-12] MEDS: iohexoL 350 MG/ML 100 ML INFUS..BTL IV (09:55)
[2025-07-12 10:45] VITALS: BP 96/46; PULSE 48; RESP 14; TEMP 36.2; O2SAT 100
[2025-07-12 11:04] VITALS: BP 97/42; PULSE 52; RESP 14; TEMP 36.6; O2SAT 100
[2025-07-12] MEDS: Lidocaine 4 % Patch ADH..PATCH 1 PATCH TRANSDERMA (11:04)
[2025-07-12 11:11] VITALS: BP 97/42; PULSE 52; RESP 14; TEMP 36.6; O2SAT 100
== END 2025-07-12 11:13 | disposition home or self-care (01) ==
PROVIDERS: Physician Assistant Medical; Emergency Provider Emergency Medicine; PCP Internal Medicine
DX: R10.11 Right upper quadrant pain (principal); R10.A1 Flank pain, right side; K59.00 Constipation, unspecified; Z90.49 Acquired absence of other specified parts of digestive tract; Z88.6 Allergy status to analgesic agent
CPT/HCPCS: 36415; 74177; 80048; 80076; 81003; 81025; 83690; 84484; 85025; 93005; 96365; 99285; J0131; Q9967

== ENCOUNTER → 2025-07-12 09:00 | Outpatient (BNV) | payer MEDICAID, SELFPAY | PROVIDERS: Emergency Provider Emergency Medicine; PCP Internal Medicine; Visit Provider Radiology Diagnostic Radiology | DX: K59.00 Constipation, unspecified (principal); R10.31 Right lower quadrant pain | CPT/HCPCS: 74177 ==

== ENCOUNTER → 2025-07-12 09:03 | Outpatient (BNV) | payer MEDICAID, SELFPAY | PROVIDERS: Emergency Provider Emergency Medicine; PCP Internal Medicine; Visit Provider Internal Medicine Cardiovascular Disease | DX: I49.9 Cardiac arrhythmia, unspecified (principal); R00.1 Bradycardia, unspecified | CPT/HCPCS: 93010 ==

== ENCOUNTER 2025-08-07 08:13 | Emergency (ER) | payer MEDICAID, SELFPAY ==
--- NOTE | ~2025-08-07 | XR_ITS ---
EXAMINATION: XR CHEST CLINICAL INFORMATION: right lower rib pain COMPARISON: February 22, 2025. TECHNIQUE: PA and lateral views. FINDINGS: No consolidation, pleural effusion or pneumothorax. No hyperinflation. Cardiomediastinal silhouette size is normal. Osseous structures are intact. Vascular clips right upper quadrant abdomen likely prior laparoscopic cholecystectomy. Patient's large body habitus. XR/XR chest 2V IMPRESSION: No acute airspace disease. Stable chest. Electronically signed by: Gil García MD 08/07/2025 10:00 AM TINO WATTS
--- NOTE | ~2025-08-07 | US_ITS ---
EXAMINATION: US ABDOMEN LIMITED HISTORY: RUQ TECHNIQUE: Real-time grayscale ultrasound imaging of the right upper quadrant was performed and images were reviewed. COMPARISON: Correlation is made with a contrast-enhanced CT of the abdomen dated 07/12/2025. FINDINGS: Liver: The right lobe of the liver measures 15.6 cm in size. The left lobe of the liver measures 8.8 cm in size. The liver demonstrates mildly increased echotexture, consistent with steatosis. No focal mass or intrahepatic biliary ductal dilatation is identified. There is normal hepatopedal flow in the portal vein. Gallbladder and biliary tree: The gallbladder is surgically absent. The common bile duct is normal in caliber measuring 3 mm. Right Kidney: The right kidney measures 10.0 cm in length. The right kidney is unremarkable, without evidence of masses, hydronephrosis, or calculi. Pancreas: The pancreatic head, neck, and body are unremarkable. The pancreatic tail is obscured by bowel gas. There is no free fluid in the right upper quadrant. US/US abdomen limited IMPRESSION: Mild hepatic steatosis. Otherwise unremarkable right upper quadrant ultrasound. Electronically signed by: Rudi Nobles MD 08/07/2025 09:45 AM EST
[2025-08-07 08:16] VITALS: BP 110/58; PULSE 54; RESP 14; TEMP 36.3; O2SAT 98; BMI 33.3
--- NOTE | 2025-08-07 08:32 | ED.ABDPAIN ---
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 She reports pain to her right upper quadrant, constant in nature. No radiation. Not worse with eating. No clear exacerbating or reliving factors. Has been taking Tylenol intermittently without relief. Her last dose was 3 days ago. She was evaluated for similar symptoms on 07/12/25 -diagnosed with constipation. Placed on a bowel regimen and has been having regular BMS. Her last BM was yesterday. RUQ pain remains unchanged. Denies fever, chills, N/V/D, urinary sx. Denies chest pain, sob, palpitations. She is s/p cholecystectomy in [place] in 2009. She also reports c sections x3 and tummy tuck x2. Related Data Previous Rx's ?Medication ?Instructions ?Recorded meloxicam 15 mg tablet 15 mg PO DAILY #10 tabs 04/02/23 cyclobenzaprine 10 mg tablet 10 mg PO TID PRN muscle spasm #20 09/01/23 tabs metronidazole 500 mg tablet 500 mg PO BID #14 tabs 09/05/23 nystatin 100,000 unit/gram topical 1 appl topical BID #15 grams 04/01/24 cream meclizine 12.5 mg tablet 12.5 mg PO TID PRN vertigo 5 days 02/22/25 #20 tabs scopolamine base 1 mg over 3 days 1 patch transdermal Q3D PRN 02/22/25 transdermal patch vertigo 7 days #4 ea acetaminophen 500 mg tablet 1,000 mg (2 x 500 mg) PO Q8H PRN 07/12/25 (Tylenol Extra Strength) pain #30 tabs docusate sodium 100 mg capsule 100 mg PO DAILY #14 caps 07/12/25 polyethylene glycol 3350 17 17 g PO DAILY 2 weeks #238 grams 07/12/25 gram/dose oral powder (Miralax) Allergies Allergy/AdvReac Type Severity Reaction Status Date / Time aspirin (Aspirin) Allergy Unknown RASH Verified 08/07/25 08:18 Review of Systems Review of Systems Yes all other systems are reviewed and are negative [facility] Past Medical History Attestation statement: The following information was validated with the patient. Source: old records reviewed and nursing notes reviewed Medical History Acute UTI Surgical History Hx laparoscopic cholecystectomy Hx of section History of abdominoplasty (~02/2023) Social History Social History Alcohol intake: never Patient Tobacco Use Status: Never used Tobacco Physical Exam ED Vital Signs: Vital Signs - 24 hr 08/07/25 08:16 08/07/25 10:41 08/07/25 11:47 Temperature 97.4 F 97.8 F 97.8 F Pulse Rate 54 53 53 Respiratory Rate 14 16 16 Blood Pressure 110/58 L 106/61 106/61 Pulse Oximetry 98 98 98 Oxygen Delivery Method Room Air Room Air Room Air BMI result Body Mass Index 33.3 vital signs stable General: Well appearing, in no acute distress. Skin: Warm, dry, intact. No rashes or lesions. Head: Normocephalic, atraumatic. EENT: Hearing is intact b/l. Conjunctiva clear. Sclera is anicteric. PERRLA. EOM intact. Moist mucous membranes.? Neck: Supple without LAD Cardiac: Chest wall symmetric. RRR Lungs: Normal respiratory effort without accessory muscle use. CTA bilaterally Abdomen: soft, ND, ttp of right upper quadrant with positive murphys sign. no rebound. active bs x4. Back: No midline spinous or paraspinal tenderness. No step off deformity. Ext: Upper and lower extremities atraumatic, without tenderness, deformity, swelling or erythema Neuro: AOx3. Normal speech. Ambulating with steady gait Course Course Course Narrative: CBC without leukocytosis or left shift. No anemia. H&H stable. Chemistry without acute electrolyte abnormality requiring intervention. No BRAIN. Liver function WNL. Total and direct bili WNL. Lipase WNL. Urine without infection. Abdominal ultrasound showing mild hepatic steatosis, otherwise unremarkable. Status post cholecystectomy. CBD normal, measuring 8 mm. Patient medicated with IV Tylenol. She is sitting comfortably on the exam bed. Her work up today is reassuring. her pain may be related to postsurgical adhesions. I do not have concern for choledocholithiasis, cholangitis, biliary dyskinesia. I feel she may benefit from GI follow up. I have provided a referral. Advised her to contact their office for follow up. Patient has remained stable throughout ED visit today. Discussed worrisome signs and symptoms and when to return to the ED. All questions answered at this time. Patient is agreeable with disposition and stable for discharge. Medical Decision Making Medical Decision Making [facility] Narrative: 34 year old belizean speaking female with pmhx significant for vertigo presents to the ED today for evaluation of abdominal pain x1 month. vital signs stable. afebrile. She is well-appearing, sitting comfortably on the exam bed. On exam, her abdomen is soft, nondistended, tender to palpation of the right upper quadrant with Morel's sign. No rebound tenderness. Active bowel sounds x4. No CVAT. Differential diagnosis includes postsurgical adhesions, biliary dyskinesia, choledocholithiasis, cholangitis, bile duct stricture, gallbladder stump disease, PUD, gastritis, pneumonia, rib contusion, costochondritis. Abdominal exam without peritoneal signs. No evidence of acute abdomen at this time. Well appearing. Moderate suspicion for acute hepatobiliary disease (including acute cholecystitis). Less likely to represent acute pancreatitis, perforated ulcer/ GI bleed, acute infectious processes (pneumonia, hepatitis, pyelonephritis), atypical appendicitis, vascular catastrophe, bowel obstruction or viscus perforation. Presentation not consistent with other acute, emergent causes of abdominal pain at this time. Plan: labs, UA, pain control, RUQ US, CXR, serial reassessment Differential Diagnosis Differential Diagnoses: The differential diagnosis associated with the presentation includes as above. Admission/Observation Not indicated Lab Data [facility] Lab Attestation statement: I reviewed the patient's lab results. As above 08/07/25 08:31 08/07/25 08:31 Labs: Lab Results 08/07/25 Range/Units 08:31 WBC 6.4 (4.8-10.8) X10*3/uL RBC 4.66 (4.20-5.50) X10*6/uL Hgb 13.4 (12.0-16.0) g/dl Hct 40.6 (37.0-47.0) % MCV 87.1 (80.0-98.0) fL MCH 28.8 (27.0-33.0) pg MCHC 33.0 (31.0-35.0) g/dl RDW 13.2 (11.0-16.0) % Plt Count 359 (160-400) X10*3/uL MPV 9.6 (9.4-12.3) fL Immature Gran % (Auto) 0.2 (0.0-0.4) % Neut % (Auto) 52.3 (45-73) % Lymph % (Auto) 33.5 (20-40) % Ray % (Auto) 6.4 (2-11) % Eos % (Auto) 6.8 H (0-4) % Baso % (Auto) 0.8 (0-2) % Lymph # (Auto) 2.1 (1.2-4.9) X10*3/uL Ray # (Auto) 0.4 (0.1-1.2) X10*3/uL Eos # (Auto) 0.4 (0.0-0.4) X10*3/uL Baso # (Auto) 0.1 (0.0-0.2) X10*3/uL Abs Immat Gran (auto) 0.01 (0.00-0.03) X10*3/uL Absolute Neuts (auto) 3.3 (2.0-8.3) x10*3/uL Absolute Nucleated RBC 0.000 (0.0-0.012) X10*3/uL Nucleated RBC % (auto) 0.0 (0.0-0.2) /100WBC Sodium 140 (135-145) mmol/L Potassium 3.8 (3.3-5.1) mmol/L Chloride 108 (96-108) mmol/L Carbon Dioxide 27 (22-29) mmol/L Anion Gap 9 L (12-20) BUN 9 (9-16) mg/dL Creatinine 0.72 (0.5-1.4) mg/dL Estim Creat Clear Calc 110.7 Estimated GFR > 60 Random Glucose 98 (60-115) mg/dL Calcium 9.0 (8.4-10.2) mg/dL Total Bilirubin 0.3 (0.0-1.0) mg/dL Direct Bilirubin 0.1 (0.0-0.5) mg/dL AST 21 (5-31) U/L ALT 19 (0-31) U/L Alkaline Phosphatase 75 (39-117) U/L Total Protein 7.3 (6.5-8.0) g/dL Albumin 4.1 (3.5-5.0) g/dL Lipase 34 (8-78) U/L Urine Color Yellow Urine Appearance Clear Urine pH 5.5 (5.0-9.0) Ur Specific [place] 1.025 (1.005-1.025) Urine Protein Negative (Neg-Trace) mg/dL Urine Glucose (UA) Negative (Negative) mg/dL Urine Ketones Negative (Negative) mg/dL Urine Blood Negative (Negative) Urine Nitrite Negative (Negative) Ur Leukocyte Esterase Negative (Negative) Urine RBC 0-2 (0-2) /HPF Urine WBC 0-5 (0-5) /HPF Ur Squamous Epith Cells 6-10 (0-2) /HPF Urine Bacteria None Seen (None Seen) Hyaline Casts 0-2 (0-2) /LPF Urine Test NEGATIVE (NEGATIVE) Independent Interpretation I performed an independent interpretation of an: Plain X-Ray and Ultrasound Interpretation: RUQ US w/ absent GB CXR without infiltrate or consolidation Radiology Impression Discussion of test interpretation with radiology: I have reviewed the radiologist's reading. Radiologist Impression: Procedure(s): XR chest 2V Accession Number(s): [id number] cc: Ariadne Helton MD; Lupe Bonilla~ Reason for Exam: right lower rib pain EXAMINATION: XR CHEST CLINICAL INFORMATION: right lower rib pain COMPARISON: February 22, 2025. TECHNIQUE: PA and lateral views. FINDINGS: No consolidation, pleural effusion or pneumothorax. No hyperinflation. Cardiomediastinal silhouette size is normal. Osseous structures are intact. Vascular clips right upper quadrant abdomen likely prior laparoscopic cholecystectomy. Patient's large body habitus. XR/XR chest 2V IMPRESSION: No acute airspace disease. Stable chest. Electronically signed by: Gil García MD 08/07/2025 10:00 AM [facility] Procedure(s): US abdomen limited Accession Number(s): [id number] cc: Ariadne Helton MD; Lupe Bonilla~ Reason for Exam: RUQ EXAMINATION: US ABDOMEN LIMITED HISTORY: RUQ TECHNIQUE: Real-time grayscale ultrasound imaging of the right upper quadrant was performed and images were reviewed. COMPARISON: Correlation is made with a contrast-enhanced CT of the abdomen dated 07/12/2025. FINDINGS: Liver: The right lobe of the liver measures 15.6 cm in size. The left lobe of the liver measures 8.8 cm in size. The liver demonstrates mildly increased echotexture, consistent with steatosis. No focal mass or intrahepatic biliary ductal dilatation is identified. There is normal hepatopedal flow in the portal vein. Gallbladder and biliary tree: The gallbladder is surgically absent. The common bile duct is normal in caliber measuring 3 mm. Right Kidney: The right kidney measures 10.0 cm in length. The right kidney is unremarkable, without evidence of masses, hydronephrosis, or calculi. Pancreas: The pancreatic head, neck, and body are unremarkable. The pancreatic tail is obscured by bowel gas. There is no free fluid in the right upper quadrant. US/US abdomen limited IMPRESSION: Mild hepatic steatosis. Otherwise unremarkable right upper quadrant ultrasound. Electronically signed by: Rudi Nobles MD 08/07/2025 09:45 AM [facility] External Record Review External record reviewed: Inpatient record Prescription Management I considered prescription management with: Pain Medication Social Determinants Patient?s care significantly limited by Social Determinants of Health including: Other Social Determinant of Health Medications Administered Discontinued Medications Generic Name Dose Route Start Last Admin Trade Name Freq PRN Reason Stop Dose Admin Acetaminophen 1,000 mg in 100 mls @ 400 mls/hr 08/07/25 09:31 08/07/25 11:46 Ofirmev IV 08/07/25 09:45 Infused ONCE ONE Infusion Critical Care Time Critical Care Time Critical Care Time: No Discharge Plan Discharge Clinical Impression: Abdominal pain Patient Disposition: Home, Self-Care Instructions: Abdominal Pain (ED) Additional Instructions: Your blood work and imaging are reassuring today. As discussed, your pain may be related to postsurgical adhesions. Take tylenol and motrin as needed for pain/discomfort. You may follow up with GI outpatient for further eval. I have provided you with a referral. Call their office to establish care. They will not call you. Return with any new or worsening symptoms. In the case of an emergency call 911. Prescriptions: No Action metronidazole 500 mg tablet 500 mg PO BID Qty: 14 0RF scopolamine base 1 mg over 3 days patch 3 day 1 patch transdermal Q3D PRN (Reason: vertigo) 7 Days Qty: 4 0RF meclizine 12.5 mg tablet 12.5 mg PO TID PRN (Reason: vertigo) 5 Days Qty: 20 0RF polyethylene glycol 3350 [Miralax] 17 gram/dose powder 17 g PO DAILY 14 Days Qty: 238 0RF docusate sodium 100 mg capsule 100 mg PO DAILY Qty: 14 0RF acetaminophen [Tylenol Extra Strength] 500 mg tablet 1,000 mg PO Q8H PRN (Reason: pain) Qty: 30 0RF meloxicam 15 mg tablet 15 mg PO DAILY Qty: 10 0RF cyclobenzaprine 10 mg tablet 10 mg PO TID PRN (Reason: muscle spasm) Qty: 20 0RF nystatin 100,000 unit/gram cream 1 appl topical BID Qty: 15 0RF Referrals: [facility] [Provider Group, Gastroenterology] Ariadne Helton MD [Primary Care Provider, Internal Medicine] Interventions: ED Discharge Assessment Last Done: 08/07/25 11:47 Discharge Date/Time: 08/07/25 11:48 Print Language: Greek
[2025-08-07 08:38] LABS: MANUAL DIFF FLAG NO
[2025-08-07 08:43] LABS: Hematocrit 40.6 % (37.0-47.0); Hemoglobin 13.4 g/dl (12.0-16.0); Imm Gran Abs Auto 0.01 X10*3/uL (0.00-0.03); Imm Gran Pct Auto 0.2 % (0.0-0.4); Lymphocytes Absolute Auto 2.1 X10*3/uL (1.2-4.9); Mean Corpuscular HGB Conc 33.0 g/dl (31.0-35.0); Mean Corpuscular Hemoglobin 28.8 pg (27.0-33.0); Mean Corpuscular Volume 87.1 fL (80.0-98.0); NRBC Abs Auto 0.000 X10*3/uL (0.0-0.012); NRBC Pct Auto 0.0 /100WBC (0.0-0.2); Platelet Count 359 X10*3/uL (160-400); Red Blood Count 4.66 X10*6/uL (4.20-5.50); White Blood Count 6.4 X10*3/uL (4.8-10.8)
[2025-08-07 08:44] LABS: Appearance Urine Clear; Glucose Urine UA Negative (Negative); PH 5.5 (5.0-9.0); Specific Gravity - Urine 1.025 (1.005-1.025)
[2025-08-07 08:47] LABS: UPreg QC Valid YES
[2025-08-07 08:56] LABS: Alanine Aminotransferase 19 U/L (0-31); Albumin Level 4.1 g/dL (3.5-5.0); Alkaline Phosphatase 75 U/L (39-117); Anion Gap 9 (12-20); Aspartate Amino Transferase 21 U/L (5-31); Blood Urea Nitrogen 9 mg/dL (9-16); Calcium 9.0 mg/dL (8.4-10.2); Carbon Dioxide 27 mmol/L (22-29); Chloride 108 mmol/L (96-108); Creatinine Clr Calc Pharmacy 110.7; Estimated Glomerular Filt Rate > 60; Lipase 34 U/L (8-78); Potassium 3.8 mmol/L (3.3-5.1); Sodium 140 mmol/L (135-145); Total Protein 7.3 g/dL (6.5-8.0)
--- OUTSIDE RECORDS SUMMARY | 2025-08-07 09:14 | XMS_ITS | Clinical Summary ---
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 hydrocortisone (Anusol-HC) 2.5 % rectal creamIndications: Hemorrhoids, unspecified hemorrhoid type Insert into the rectum 2 times daily. 28 g 3 Active fluconazole (Diflucan) 150 MG tabletIndications :Vaginal discharge Take one tablet then after 72hrs take another tablet 2 tablet 4 Active bacitracin-polymy isidro b (Polysporin) ointment Apply topically 2 times daily. Apply to affected area daily 30 g 4 Active Blood Pressure Monitoring (Blood Pressure Cuff) miscIndications:T emporary high blood pressure 1 each Once daily. 1 each 4 Active minoxidil (Loniten) 2.5 MG tabletIndications :Androgenetic alopecia Take 1 tablet (2.5 mg) by mouth Once per day. 90 tablet 3 4 Active ketoconazole (NIZOral) 2 % shampooIndication s:Seborrheic dermatitis Apply topically 2 (two) times a week. 120 mL 3 4 Active SUMAtriptan (Imitrex) 50 MG tabletIndications :Migraine with aura and without status migrainosus, not intractable Take 1 tablet (50 mg) by mouth 1 (one) time if needed for migraine. May repeat dose once in 2 hours if no relief. Do not exceed 2 doses in 24 hours. 9 tablet 1 5 Active topiramate (Topamax) 50 MG tabletIndications :Migraine with aura and without status migrainosus, not intractable Take 1 tablet (50 mg) by mouth at bedtime. 30 tablet 1 5 Active senna (Senokot) 8.6 MG tabletIndications :Constipation, unspecified constipation type Take 1 tablet (8.6 mg) by mouth at bedtime. 120 tablet 5 Active polyethylene glycol, PEG, 3350 (MiraLax) 17 GM/SCOOP powderIndications :Constipation, unspecified constipation type Take 17 g by mouth 2 times daily. 527 g 5 Active ascorbic acid (Vitamin C) 500 MG tabletIndications :Iron deficiency Take 1 tablet (500 mg) by mouth every other day. 15 tablet 2 4 07/12/20 25 ferrous gluconate (Fergon) 324 (38 Fe) MG tabletIndications :Iron deficiency Take 1 tablet (324 mg) by mouth every other day. 15 tablet 2 4 07/12/20 25 Active Problems Problem Noted Date Diagnosed Date Benign paroxysmal vertigo of both ears 5 Assessment & Plan (03/03/2025 11:16 AM EDT): When she has vertigo episode cannot drive or work, [facility] paperwork will be filled out for her I advised to drink plenty of water and change positions slowly Patient already referred to ENT I refer her for vestibular therapy I prescribed for her meclizine 25 mg every 8 hours as needed Severe anxiety 01/24/2025 Assessment & Plan (01/24/2025 [...] all symptoms in the context of ending prison relationship, co-parenting, fearful of judgement, living in hostile environment . PLAN: New/Additional Services needed Off-site services for Behavioral Health Integration Plan External OP therapy referral Patient Self Plan Patient to utilize skills provided in intervention , Patient to reach out to [facility] team as needed, Patient to engage in OP therapy , and Patient to reach out to [facility] as needed Moderate depressive disorder 01/24/2025 Chronic [...] work, PCP aware, defer to pcp for prison work plan Iron deficiency 05/19/2024 Temporary high [...] Assessment & Plan (04/04/2024 3:11 PM EDT): [facility] paperwork should reflect date to of return to work 06/07/2024 Migraine with aura and witho ut status migrainosus, not intractable 02/03/2024 Assessment & Plan (03/03/2025 11:17 AM EDT): I advise to avoid migraine triggers like red wine, chocolate, cheese, strong perfumes I went up on Topamax to 50 mg at bedtime I renew her prescription for Imitrex I advised to reschedule her appointment with neurology Assessment & Plan (01/24/2025 4:41 PM EDT): [...] Encounters Date Type Department Care Team Description 08/07/2025 Orders Only GENERIC EXTERNAL DATA DEPARTMENT Provider, Generic External Data 07/25/2025 Telephone [facility] [address] [place] [phone] Ariadne Helton MD 07/24/[address] [address] Ariadne Helton MD Nurse Triage 07/14/2025 3:00 PM EDT Office Visit [address] [address] [facility] Constipation, unspecified constipation type (Primary Dx); Chest pain, musculoskeletal 07/14/2025 Travel 07/12/2025 Orders Only GENERIC EXTERNAL DATA DEPARTMENT Provider, Generic External Data 07/06/[address] [address] Ariadne Helton MD Med Refill from Last 3 Months Immunizations Immunization Administration [...] Sign Reading Time Taken Comments Blood Pressure 110/80 07/14/2025 3:15 PM EDT Pulse 60 07/14/2025 3:15 PM EDT Temperature 36.4 C (97.6 F) 07/14/2025 3:15 PM EDT Respiratory Rate 20 07/14/2025 3:15 PM EDT Oxygen Saturation 98% 02/17/2025 8:47 AM EDT Inhaled Oxygen Concentration - - Weight 85.3 kg (188 lb) 07/14/2025 3:15 PM EDT Height 157.5 cm (5' 2 ) 07/14/2025 3:15 PM EDT Body Mass Index 34.39 07/14/2025 3:15 PM EDT Plan of Treatment Upcoming Encounters Date Type Department Care Team (Late st Contact Info) Description 08/10/2025 2:30 PM EST Telemedicine [facility] [address], [place] [phone] Ariadne Helton MD [address] [place] [address] Health Maintenance Due Date Last Done Comments Disability Screening 1990 Family Planning (PISQ) 12/18/2006 HPV Vaccines (1 - 3-dose series) 12/18/2006 Hepatitis B Vaccines (1 of 3 - 19+ 3-dose series) 12/18/2010 COVID-19 Vaccine ( - 2023-2 5 season) 2025 Influenza Vaccine (#1) 2025 5, 01/10/2015 DTaP/Tdap/Td Vaccines (2 - T d or Tdap) 06/22/2025 06/22/2015 Alcohol/Substance Use Screening 12/05/2025 12/05/2024 SDOH Screening 12/05/2025 12/05/2024 Depression Screening 01/24/2026 01/24/2025, 01/24/2025 Tobacco Screening 07/17/2026 07/17/2025 Cervical Cancer Screening 10/28/2028 HPV/Cotest 10/28/2028 10/28/2023 [...] Years) and At-Risk Patients (6 to 49) Years Aged Out No longer eligible b ased on patient's age to complete this topic RSV under 20 months Aged Out No longe r eligible based on patient's age to complete this topic Rotavirus Vaccines Aged Out No longer eligible based on patient's age to complete this topic Procedures Procedure Name Priority Date/Time Associated Diagnosis Comments LIPASE Routine 08/07/2025 8:31 AM EST BASIC METABOLIC PANEL Routine 08/07/2025 8:31 AM EST HEPATIC FUNCTION PANEL Routine 08/07/2025 8:31 AM EST HCG, QL, URINE Routine 08/07/2025 8:31 AM EST URINALYSIS, COMPLETE, WITH REFLEX TO CULTURE Routine 08/07/2025 8:31 AM EST CBC WITH AUTO DIFFERENTIAL Routine 08/07/2025 8:[address] ABDOMEN PELVIS W CONTRAST Routine 07/12/2025 9:51 AM EDT HCG, QL, URINE Routine 07/12/2025 8:25 AM EDT URINALYSIS WITH REFLEX MICROSCOPIC Routine 07/12/2025 8:24 AM EDT HIGH SENSITIVITY TROPONIN I Routine 07/12/2025 8:23 AM EDT LIPASE Routine 07/12/2025 8:23 AM EDT BASIC METABOLIC PANEL Routine 07/12/2025 8:23 AM EDT HEPATIC FUNCTION PANEL Routine 07/12/2025 8:23 AM EDT CBC WITH AUTO DIFFERENTIAL Routine 07/12/2025 8:23 AM EDT HEPATITIS PANEL, GENERAL Routine 01/03/2025 3:29 PM [...] Recently Relevant to Health Maintenance Results * Urinalysis, Complete, with Reflex to Culture (08/07/2025 8:31 AM EST) Color Urine Yellow [facility] Appearance Urine Clear [facility] PH 5.5 5.0 - 9.0 [facility] Glucose Urine UA Negative Negative mg/dL [facility] Urine Blood Negative Negative [facility] Specific [place] - Urine 1.025 1.005 - 1.025 [facility] Urine Protein Negative Neg-Trace mg/dL [facility] Urine Ketones Negative Negative mg/dL [facility] Nitrite Urine Negative Negative [facility] Leukocyte Esterase Urine Negative Negative [facility] RBC Urine 0-2 0 - 2 /HPF [facility] Urine WBC 0-5 0 - 5 /HPF [facility] Urine Squamous Epithelial Cell 6-10 0 - 2 /HPF [facility] Urine Bacteria None Seen None Seen [facility] Hyaline Casts, Urine 0-2 0 - 2 /LPF [facility] 08/07/2025 8:31 AM EST 08/07/2025 8:37 AM EST Narrative [facility] - 08/07/2025 8:46 AM EST [id number], Clean Catch us Generic External Data Provider LAB URINE ORDERAB LES Final Result [facility] [address] [place] [phone] * (ABNORMAL) CBC auto differential (08/07/2025 8:31 AM EST) Only the most recent of2 resultswithin the time period is included. White Blood Count 6.4 4.8 - 10.8 X10*3/uL [facility] Red Blood Count 4.66 4.20 - 5.50 X10*6/uL [facility] Hemoglobin 13.4 12.0 - 16.0 g/dl [facility] Hematocrit 40.6 37.0 - 47.0 % [facility] Mean Corpuscular Volume 87.1 80.0 - 98.0 fL [facility] Mean Corpuscular Hemoglobin 28.8 27.0 - 33.0 pg [facility] Mean Corpuscular HGB Conc 33.0 31.0 - 35.0 g/dl [facility] Red Cell Distribution Width 13.2 11.0 - 16.0 % [facility] Platelet Count 359 160 - 400 X10*3/uL [facility] Mean Platelet Volume 9.6 9.4 - 12.3 fL [facility] Neutrophils Percent Auto 52.3 45 - 73 % [facility] Imm Gran Pct Auto 0.2 0.0 - 0.4 % [facility] Lymphocytes Percent Auto 33.5 20 - 40 % [facility] Monocytes Percent Auto 6.4 2 - 11 % [facility] Eosinophils Percent Auto 6.8(H) 0 - 4 % [facility] Basophils Percent Auto 0.8 0 - 2 % [facility] NRBC Pct Auto 0.0 0.0 - 0.2 /100WBC [facility] Neutrophils Absolute Auto 3.3 2.0 - 8.3 x10*3/uL [facility] Imm Gran Abs Auto 0.01 0.00 - 0.03 X10*3/uL [facility] Lymphocytes Absolute Auto 2.1 1.2 - 4.9 X10*3/uL [facility] Monocytes Absolute Auto 0.4 0.1 - 1.2 X10*3/uL [facility] Eosinophils Absolute Auto 0.4 0.0 - 0.4 X10*3/uL [facility] Basophils Absolute Auto 0.1 0.0 - 0.2 X10*3/uL [facility] NRBC Abs Auto 0.000 0.0 - 0.012 X10*3/uL [facility] 08/07/2025 8:31 AM EST 08/07/2025 8:37 AM EST us Generic External Data Provider LAB BLOOD ORDERAB LES Final Result Performing Organization Address City/[facility]/ZIP Co de Phone Number [facility] [address] [place] [phone] * HCG, Qualitative, Urine (08/07/2025 8:31 AM EST) Only the most recent of2 resultswithin the time period is included. Urine NEGATIVE NEGATIVE [facility] Comment:This test was develo ped to detect early . Falsenegative results may occur after the 5th - 7th week ofpregnancy when using this test method. If clinicallyindicated, consider a serum hCG. 08/07/2025 8:31 AM EST 08/07/2025 8:37 AM EST us Generic External Data Provider LAB URINE ORDERAB LES Final Result Performing Organization Address City/[facility]/ZIP Co de Phone Number [facility] [address] [place] [phone] * Lipase (08/07/2025 8:31 AM EST) Only the most recent of2 resultswithin the time period is included. Lipase 34 8 - 78 U/L [facility] 08/07/2025 8:31 AM EST 08/07/2025 8:37 AM EST Generic External Data Provider LAB BLOOD ORDERAB LES Final Result Performing Organization Address City/[facility]/ZIP Co de Phone Number [facility] [address] [place] [phone] * Hepatic Function Panel (08/07/2025 8:31 AM EST) Only the most recent of2 resultswithin the time period is included. Bilirubin, Total 0.3 0.0 - 1.0 mg/dL [facility] Bilirubin, Direct 0.1 0.0 - 0.5 mg/dL [facility] Aspartate Amino Transferase 21 5 - 31 U/L [facility] Alanine Aminotransferase 19 0 - 31 U/L [facility] Total Protein 7.3 6.5 - 8.0 g/dL [facility] Albumin Level 4.1 3.5 - 5.0 g/dL [facility] Alkaline Phosphatase 75 39 - 117 U/L [facility] 08/07/2025 8:31 AM EST 08/07/2025 8:37 AM EST Generic External Data Provider LAB BLOOD ORDERAB LES Final Result Performing Organization Address City/[facility]/ZIP Co de Phone Number [facility] [address] [place] [phone] * (ABNORMAL) Basic Metabolic Panel (08/07/2025 8:31 AM EST) Only the most recent of2 resultswithin the time period is included. Sodium 140 135 - 145 mmol/L [facility] Potassium 3.8 3.3 - 5.1 mmol/L [facility] Chloride 108 96 - 108 mmol/L [facility] Carbon Dioxide 27 22 - 29 mmol/L [facility] Anion Gap 9(L) 12 - 20 [facility] Urea Nitrogen (BUN) 9 9 - 16 mg/dL [facility] Creatinine, Serum 0.72 0.5 - 1.4 mg/dL [facility] Creatinine Clr Calc Pharmacy 110.7 [facility] Comment:Provided height and weight: 157.48 cm,82.6 kg.eGFR (calculated from the MDRD study equation) and eCrCl(calculated from the Cockcroft-Gault equation) are based ondifferent parameters and may not yield comparable results.If eCrCl result is absurd, please check patient'sheight/weight. Estimated Glomerular Filt Rate >60 [facility] Comment:Chronic Kidney Disea se: Estimated GFR < 60 mL/min/1.17n6Snjbyc Kidney Disease: Estimated GFR < 15 mL/min/1.73m2 Glucose 98 60 - 115 mg/dL [facility] Calcium 9.0 8.4 - 10.2 mg/dL [facility] 08/07/2025 8:31 AM EST 08/07/2025 8:37 AM EST us Generic External Data Provider LAB BLOOD ORDERAB LES Final Result Performing Organization Address City/State/[facility] Co de Phone Number [facility] [address] [place] [phone] * CT Abdomen Pelvis w/ Contrast (07/12/2025 9:51 AM EDT) Anatomical Region Laterality Modality Body, Pelvis, Abdomen Computed T omography 07/12/2025 9:51 AM EDT Narrative 07/12/2025 10:24 AM EDT [address] [address] [address] Scan Report Signed Patient: Anabel Handley MR#: [id number] 8 : 1990 Acct:[id number] Age/Sex: 34 / F ADM Date: 07/12/25 Loc: HO.ED Attending Dr: Ordering Physician: Roseline De Date of Service: 07/12/25 Procedure(s): CT abdomen pelvis w IV con Accession Number(s): [id number] cc: Ariadne Helton MD; Roseline De Report Number: [id number]: Total DLP = 793.00 mGy-cm Reason for Exam: umbilical pain, RUQ/LLQ pain *no iv 0909a * EXAMINATION: CT ABDOMEN PELVIS WITH IV CONTRAST HISTORY: umbilical pain, RUQ/LLQ pain *no iv 0909a * COMPARISON: There are no prior studies for available comparison. TECHNIQUE: CT scan of the abdomen and pelvis was performed following administration of 85 mL Omnipaque 350 using standard departmental protocol. Coronal and sagittal reformatted images were generated and reviewed. Oral contrast material was not administered at the request of the referring physician. This CT exam was performed with one or more of the following dose reduction techniques: automated exposure control, adjustment of the mA and/or kV according to patient size, use of iterative reconstruction technique. DLP: 793 mGy-cm FINDINGS: LOWER CHEST: The visualized lung bases are clear. There is no pleural effusion. CARDIOVASCULATURE: The heart is normal in size. There is no pericardial effusion. LIVER: The liver is normal in size and contour. No liver mass is identified. The hepatic and portal veins are patent. GALLBLADDER / BILE DUCTS: The gallbladder is surgically absent. There is no intra or extrahepatic biliary ductal dilatation. SPLEEN: The spleen is normal in size. No focal splenic lesion is identified. PANCREAS: The pancreas is unremarkable in appearance. ADRENAL GLANDS: Within normal limits. KIDNEYS/RETROPERITONEUM: No renal calculi are identified. There is no hydronephrosis. No renal masses are identified. LYMPH NODES: No abdominal or pelvic lymphadenopathy. VASCULATURE: The abdominal aorta is normal in caliber. MESENTERY/PERITONEUM: No free fluid. No masses. There is no free intraperitoneal gas. STOMACH: The stomach is unremarkable. SMALL BOWEL: The small bowel is normal in caliber. COLON: There is a moderate amount of stool throughout the colon. APPENDIX: Normal. URINARY BLADDER/PELVIC ORGANS: The urinary bladder is unremarkable. The uterus and left ovary unremarkable. There are probable multiple right ovarian follicles measuring up to 2.1 cm in size. BONES / SOFT TISSUES: No suspicious bony or soft tissue abnormalities. CT/CT abdomen pelvis w IV con IMPRESSION: Moderate amount of stool throughout the colon. No inflammatory process is identified. Electronically signed by: Rudi Nobles MD 07/12/2025 10:21 AM EDT RP Dictated By: Rudi Nobles MD Signed By: <Electronically signed by Rudi Nobles MD in OV> 07/12/25 1021 DD/ 0951 TD/TT: 07/12/25 1008 Supervisor Fabrication Department: Procedure Note Donotuseinterpreter, Image - 07/12/[address] [place] [address] [address] Scan Report Signed Patient: Betty Handley#: [id number] 8 : 1990Acct:[id number] Age/Sex: 34 / FADM Date: 07/12/25 Loc: .ED Attending Dr: Ordering Physician: Roseline De Date of Service: 07/12/25 Procedure(s): CT abdomen pelvis w IV con Accession Number(s): [id number] cc: Ariadne Helton MD; Roseline De Report Number: [id number]: Total DLP = 793.00 mGy-cm Reason for Exam: umbilical pain, RUQ/LLQ pain *no iv 0909a * EXAMINATION: CT ABDOMEN PELVIS WITH IV CONTRAST HISTORY: umbilical pain, RUQ/LLQ pain *no iv 0909a * COMPARISON: There are no prior studies for available comparison. TECHNIQUE: CT scan of the abdomen and pelvis was performed following administration of 85 mL Omnipaque 350 using standard departmental protocol. Coronal and sagittal reformatted images were generated and reviewed. Oral contrast material was not administered at the request of the referring physician. This CT exam was performed with one or more of the following dose reduction techniques: automated exposure control, adjustment of the mA and/or kV according to patient size, use of iterative reconstruction technique. DLP: 793 mGy-cm FINDINGS: LOWER CHEST: The visualized lung bases are clear. There is no pleural effusion. CARDIOVASCULATURE: The heart is normal in size. There is no pericardial effusion. LIVER: The liver is normal in size and contour. No liver mass is identified. The hepatic and portal veins are patent. GALLBLADDER / BILE DUCTS: The gallbladder is surgically absent. There is no intra or extrahepatic biliary ductal dilatation. SPLEEN: The spleen is normal in size. No focal splenic lesion is identified. PANCREAS: The pancreas is unremarkable in appearance. ADRENAL GLANDS: Within normal limits. KIDNEYS/RETROPERITONEUM: No renal calculi are identified. There is no hydronephrosis. No renal masses are identified. LYMPH NODES: No abdominal or pelvic lymphadenopathy. VASCULATURE: The abdominal aorta is normal in caliber. MESENTERY/PERITONEUM: No free fluid. No masses. There is no free intraperitoneal gas. STOMACH: The stomach is unremarkable. SMALL BOWEL: The small bowel is normal in caliber. COLON: There is a moderate amount of stool throughout the colon. APPENDIX: Normal. URINARY BLADDER/PELVIC ORGANS: The urinary bladder is unremarkable. The uterus and left ovary unremarkable. There are probable multiple right ovarian follicles measuring up to 2.1 cm in size. BONES / SOFT TISSUES: No suspicious bony or soft tissue abnormalities. CT/CT abdomen pelvis w IV con IMPRESSION: Moderate amount of stool throughout the colon. No inflammatory process is identified. Electronically signed by: Rudi Nobles MD 07/12/2025 10:21 AM EDT Dictated By: Rudi Nobles MD Signed By: <Electronically signed by Rudi Nobles MD in OV> 07/12/25 1021 DD/ 0951 TD/TT: 07/12/25 1008 Supervisor Fabrication Department: [facility] External Provider IMG CT PROCEDURES Final Result * Urinalysis w/reflex microscopic (07/12/2025 8:24 AM EDT) Color Urine Yellow [facility] Appearance Urine Clear [facility] PH 5.5 5.0 - 9.0 [facility] Glucose Urine UA Negative Negative mg/dL [facility] Urine Blood Negative Negative [facility] Specific [place] - Urine 1.025 1.005 - 1.025 [facility] Urine Protein Negative Neg-Trace mg/dL [facility] Urine Ketones Negative Negative mg/dL [facility] Nitrite Urine Negative Negative [facility] Leukocyte Esterase Urine Negative Negative [facility] 07/12/2025 8:24 AM EDT 07/12/2025 8:29 AM EDT Narrative [facility] - 07/12/2025 8:36 AM EDT Urine, Clean Catch Generic External Data Provider LAB URINE ORDERAB LES Final Result Performing Organization Address [facility] Co de Phone Number [facility] [address] [place] [phone] * High Sensitivity Troponin I (07/12/2025 8:23 AM EDT) [facility] TROPONIN I HIGH SENSITIVITY <2.7 <3.5 - 17.0 ng/L [facility] Comment:The Bell high sens itivity Troponin-I results should beused in conjunction with other diagnostic information suchas ECG, clinical observations and information, and patientsymptoms to aid in the diagnosis of PR. 07/12/2025 8:23 AM EDT 07/12/2025 9:10 AM EDT Generic External Data Provider LAB BLOOD ORDERAB LES Final Result Performing Organization Address [facility] Co de Phone Number [facility] [address] [place] [phone] * Hepatitis Panel, General (01/03/2025 3:29 PM EDT) [facility] Hepatitis A IgM Nonreactive Nonreactive [facility] Comment:IgM antibodies to HERNANDEZ V not detected; does not exclude earlyacute or recovered HAV infection. ~Hepatitis B Surface Antibody REACTIVE Nonreactive [facility] Comment:REACTIVE: > 11.99 mI U/mL Hepatitis B Core Antibody Nonreactive Nonreactive [facility] Hepatitis C Antibody Nonreactive Nonreactive [facility] Comment:Antibodies to HCV no t detected; does not exclude early acuteHCV infection. Hepatitis B Surface Ag Negative Negative [facility] Blood Venous blood specimen / Unknown 01/03/2025 3:29 PM EDT 01/03/2025 4:07 PM EDT us Ariadne Krueger MD LAB BLOOD ORDERABLES Final Result Performing Organization Address [facility]/ZIP Co de Phone Number [facility] [address] [place] [phone] * HIV-1/2 Antigen and Antibodies, Fourth Generation, with Reflexes (01/03/2025 3:29 PM EDT) Pathologist [facility] HIV AB/AG Nonreactive Nonreactive [facility] LABS Comment:HIV-1 p24 Ag and/or HIV-1/HIV-2 Ab not detected.A test result that is nonreactive does not exclude thepossibility of exposure to or infection with HIV-1 and/orHIV-2. Nonreactive results in this assay for individualswith prior exposure to HIV-1 and/or HIV-2 may be due toantigen and antibody levels that are below the limit ofdetection of this assay.The [employer] HIV Ag/Ab Combo assay result andsupplemental assay results should be interpreted inconjunction with the patient's clinical presentation,history and other laboratory results. If the results areinconsistent with clinical evidence, additional testing issuggested to confirm the result. Blood Venous blood specimen / Unknown 01/03/2025 3:29 PM EDT 01/03/2025 4:07 PM EDT us Ariadne Krueger MD LAB BLOOD ORDERABLES Final Result Performing Organization Address City/[facility]/ZIP Co de Phone Number [facility] [address] [place] [address] [phone] * Lipid Panel with Reflex to Direct LDL (05/18/2024 12:58 PM EDT) Triglycerides 105 <150 mg/dL [facility] Comment:Desirable Triglyceri de: less than 150 mg/dLBorderline High Triglyceride 150-199 mg/dLHigh Triglyceride: 200-499 mg/dLVery High Triglyceride: greater than or equal to 5OO mg/dL Cholesterol 183 <200 mg/dL [facility] Comment:Desirable Cholestero l: less than 200 mg/dLBorderline High Cholesterol: 200-239 mg/dLHigh Cholesterol: greater than 239 mg/dL LDL Cholesterol Calculated 85 <100 mg/dL [facility] Comment:Desirable LDL: less than 100 mg/dLNear Optimal/Above Optimal LDL: 110- 129 mg/dLBorderline High LDL: 130-159 mg/dLHigh LDL: 160-189 mg/dLVery High LDL: greater than or equal to 190 mg/dL HDL Cholesterol 77 >40 mg/dL [facility] Comment:Desirable HDL: great er than 40 mg/dL Note: This HDL assay may give artificially low results in patients with liver disease. Blood 05/18/2024 12:5 8 PM EDT 05/18/2024 4:09 PM EDT Ariadne Krueger MD LAB BLOOD ORDERABLES Final Result [facility] [address] [place] [address] [phone] * Image-Guided Pap with Age-Based Screening??with CT/NG,??Trichomonas (10/28/2023 4:20 PM EST) Trichomonas (NAAT) NOT DETECTED NOT DETECTED [facility] Comment:The analytical perfo rmance characteristics of thisassay have been determined by [employer]. Themodifications have not been cleared or approved bythe FDA. This assay has been validated pursuant to theCLIA regulations and is used for clinical purposes.For additional information, please refer [email or web address]a/faq/Trichomonastma(This link is being provided for information/educational purposes only.)THIS TEST WAS PERFORMED AT:[facility] [address] [id number] SUMNER MD CTNG Ref Lab NOT DETECTED NOT DETECTED [facility] NG Ref Lab NOT DETECTED NOT DETECTED [facility] 10/28/2023 4:20 PM EST 10/29/2023 12:37 PM EST us Ariadne Krueger MD LAB CYTOLOGY ORDERABL ES Final Result [facility] [address] [place] [address] [phone] * HPV mRNA E6/E7 w/Reflex to HPV Genotypes 16, 18/45 (10/28/2023 4:20 PM EST) HPV nRNA E6/E7 Not Detected Not Detected [facility] Comment:Methodology: Transcr iption-Mediated AmplificationThis assay detects E6/E7 viral messenger RNA (mRNA) from 14high-risk HPV types (16,18,31,33,35,39,45,51,52,56,58,59,66,68).Cervical sources are required for HPV testing.If a vaginal source from a patient who has had atotal hysterectomy with removal of cervix wassubmitted, please contact the testing laboratoryfor alternative testing options.For additional information, please refer tohttp://education.[employer]lfection/faq/IMO858k2(This link if provided for information/educational purposes only.)THIS TEST WAS PERFORMED AT:[facility] [address] [id number] SUMNER MD HPV mRNA E6/E7 TNP [facility] HPV 16 RNA TNP [facility] HPV 18/45 RNA TNP [facility] 10/28/2023 4:20 PM EST 10/29/2023 8:00 AM EST us Ariadne Krueger MD LAB CYTOLOGY ORDERABL ES Final Result [facility] [address] [place] [address] [phone] from Last 3 Months or Most Recently Relevant to Health Maintenance [facility] [employer] Care Teams Hand Fabric Cutter Relationship Specialty Start Date End Date Ariadne Helton MD [address] [place] [address] PCP - General Family Medicine 03/22/20
--- OUTSIDE RECORDS SUMMARY | 2025-08-07 09:14 | XMS_ITS | Encounter Summary ---
Author Organization [employer] Address [address] [facility] 7t [place] [address] Care Team Providers Care Community Youth Secretary Name Role Phone Ariadne Helton MD Primary Care Provide r Reason for Visit * Reason Onset Date Comments Nurse Triage 05/11/2024 Encounter Details Date Type Department Care Team ([facility] st Contact Info) Description 05/11/2024 Telephone [facility] [address] [place], [place] [phone] Ariadne Helton MD [address] [place], [place] [phone] Nurse Triage Social History Tobacco Use Types [...] 05/11/2024 11:20 AM EDT Triage call with [employer] [place] ID [id number] Pt reports chronic dizziness for last 2-3 [...] accepted this outcome Please contact pt @ [phone] documented in this encounter Plan of Treatment Upcoming Encounters Date Type Department Care Team (Late st Contact Info) Description 08/10/2025 2:30 PM EST Telemedicine [facility] [address] [place] [phone] Ariadne Helton MD [address] [place] [address] documented as of this encounter Visit Diagnoses Not on filedocumented in this encounter Additional Health Concerns Assessment Noted Time PHQ-9 Depression Total Score: 0 02/03/20 24 2:36 PM EDT documented as of this encounter Care Teams Community Youth Secretary Relationship Specialty Start Date End Date Ariadne Helton MD [address] [place] [address] [phone] PCP - General Family Medicine 03/22/20 documented as of this encounter
--- OUTSIDE RECORDS SUMMARY | 2025-08-07 09:14 | XMS_ITS | Encounter Summary ---
Author Organization [employer] Address 75 [facility] 7t [place] [address] Care Team Providers Care Supervisor Dimension Warehouse Name Role Phone Ariadne Helton MD Primary Care Provide r Reason for Visit * Reason Onset Date Comments triage 10/14/2022 Encounter Details Date Type Department Care Team ([facility] st Contact Info) Description 10/14/2022 Telephone [facility] [address] [place], [place] [phone] Ariadne Helton MD [address] [place] [address] triage Social History Tobacco Use Types Packs/Day [...] 10/14/2022 1:14 PM EST Triage call with [employer] Nurse ID [id number]. Pt reports right shoulder pain for last [...] and using ice/heat. 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 appt with Dr. Barrientos 10/23 [...] Info) Description 08/10/2025 2:30 PM EST Telemedicine [facility] [address] [place] [phone] Ariadne Helton MD [address] [place] [address] documented as of this encounter Visit Diagnoses Not on filedocumented in this encounter Care Teams Supervisor Dimension Warehouse Relationship Specialty Start Date End Date Ariadne Helton MD [address] [place] [phone] PCP - General Family Medicine 03/22/20 documented as of this encounter
--- OUTSIDE RECORDS SUMMARY | 2025-08-07 09:14 | XMS_ITS | Encounter Summary ---
Author Organization [employer] Address 75 [facility] 7t [place] [address] Care Team Providers Care Network Operations Lead Name Role Phone Ariadne Helton MD Primary Care Provide r Reason for Visit * Reason Comments Med Refill Encounter Details Date Type Department Care Team ([facility] st Contact Info) Description 10/09/2023 Refill [facility] [address] [place] [address] Sangita Watt MD [address] [place] [address] Social History Tobacco Use Types Packs/Day Years [...] Info) Description 08/10/2025 2:30 PM EST Telemedicine [facility]INE [address] [place] [address] Ariadne Helton MD [address] [place] [address] documented as of this encounter Visit Diagnoses Not on filedocumented in this encounter Care Teams Network Operations Lead Relationship Specialty Start Date End Date Ariadne Helton MD [address] [place] [address] PCP - General Family Medicine 03/22/20 documented as of this encounter
--- OUTSIDE RECORDS SUMMARY | 2025-08-07 09:14 | XMS_ITS | Encounter Summary ---
Author Organization [employer] Address 75 [facility] 7t [place] [address] Care Team Providers Care First Line Supervisor Name Role Phone Ariadne Helton MD Primary Care Provide r Reason for Visit * Reason Onset Date Comments Nurse Triage 03/14/2024 Encounter Details Date Type Department Care Team ([facility] st Contact Info) Description 03/14/2024 Telephone [facility] [address] [place], [place] [phone] Ariadne Helton MD [address] [place], [place] [phone] Nurse Triage Social History Tobacco Use Types [...] has tummy tuck surgery on 02/25/24 in [place]. Pt states that at this timeshe is [...] be seen. Will forward to PCP as FYI * Telephone Encounter - Morris Roger - 03/14/2024 1:27 PM EDT Symptom: Dizziness Outcome: Schedule an appointment to be seen within 24 hours Reason: Caller denied all higher acuity questions Nauruan Speaker Pt stated they have stitches on their stomach and she feels stitches are tearing and has caused some bleeding. documented in this encounter Plan of Treatment Upcoming Encounters Date Type Department Care Team (Late st Contact Info) Description 08/10/2025 2:30 PM EST Telemedicine [facility] [address] [place], [place] [phone] Ariadne Helton MD [address] [place] [phone] documented as of this encounter Visit Diagnoses Not on filedocumented in this encounter Additional Health Concerns Assessment Noted Time PHQ-9 Depression Total Score: 0 02/03/20 24 2:36 PM EDT documented as of this encounter Care Teams First Line Supervisor Relationship Specialty Start Date End Date Ariadne Helton MD [address] [place] [phone] PCP - General Family Medicine 03/22/20 documented as of this encounter
--- OUTSIDE RECORDS SUMMARY | 2025-08-07 09:14 | XMS_ITS | Encounter Summary ---
Author Organization [employer] Address 75 [facility] 7t [place] [address] Care Team Providers Care Oiling Machine Operator Name Role Phone Ariadne Helton MD Primary Care Provide r Encounter Details Date Type Department Care Team ([facility] Contact Info) Description 08/07/2025 Orders Only GENERIC EXTERNAL DATA [...] EST Telemedicine [facility] [address] [place] [address] Ariadne Helton MD [address] [place] [address] documented as of this encounter Procedures Procedure Name Priority Date/Time Associated Diagnosis Comments URINALYSIS, COMPLETE, WITH REFLEX TO CULTURE Routine 08/07/2025 8:31 AM EST CBC WITH AUTO DIFFERENTIAL Routine 08/07/2025 8:31 AM EST HCG, QL, URINE Routine 08/07/2025 8:31 AM EST LIPASE Routine 08/07/2025 8:31 AM EST HEPATIC FUNCTION PANEL Routine 08/07/2025 8:31 AM EST BASIC METABOLIC PANEL Routine 08/07/2025 8:31 AM EST documented in this encounter Results * Lipase (08/07/2025 8:31 AM EST) Lipase 34 8 - 78 U/L [facility] 08/07/2025 8:31 AM EST 08/07/2025 8:37 AM EST us Generic External Data Provider LAB BLOOD ORDERAB LES Final Result [facility] [address] [place] [address] [phone] * (ABNORMAL) Basic Metabolic Panel (08/07/2025 8:31 AM EST) Sodium 140 135 - 145 mmol/L [facility] Potassium 3.8 3.3 - 5.1 mmol/L [facility] Chloride 108 96 - 108 mmol/L [facility] Carbon Dioxide 27 22 - 29 mmol/L [facility] Anion Gap 9(L) 12 - 20 [facility] Urea Nitrogen (BUN) 9 9 - 16 mg/dL [facility] Creatinine, Serum 0.72 0.5 - 1.4 mg/dL [facility] Creatinine Clr Calc Pharmacy 110.7 [facility] Comment:Provided height and weight: 157.48 cm,82.6 kg.eGFR (calculated from the MDRD study equation) and eCrCl(calculated from the Cockcroft-Gault equation) are based ondifferent parameters and may not yield comparable results.If eCrCl result is absurd, please check patient'sheight/weight. Estimated Glomerular Filt Rate >60 [facility] Comment:Chronic Kidney Disea se: Estimated GFR < 60 mL/min/1.83p9Zhbyqg Kidney Disease: Estimated GFR < 15 mL/min/1.73m2 Glucose 98 60 - 115 mg/dL [facility] Calcium 9.0 8.4 - 10.2 mg/dL [facility] 08/07/2025 8:31 AM EST 08/07/2025 8:37 AM EST us Generic External Data Provider LAB BLOOD ORDERAB LES Final Result Performing Organization Address [facility]/ZIP Co de Phone Number [facility] [address] [place] [address] [phone] * Hepatic Function Panel (08/07/2025 8:31 AM EST) Bilirubin, Total 0.3 0.0 - 1.0 mg/dL [facility] Bilirubin, Direct 0.1 0.0 - 0.5 mg/dL [facility] Aspartate Amino Transferase 21 5 - 31 U/L [facility] Alanine Aminotransferase 19 0 - 31 U/L [facility] Total Protein 7.3 6.5 - 8.0 g/dL [facility] Albumin Level 4.1 3.5 - 5.0 g/dL [facility] Alkaline Phosphatase 75 39 - 117 U/L [facility] 08/07/2025 8:31 AM EST 08/07/2025 8:37 AM EST Generic External Data Provider LAB BLOOD ORDERAB LES Final Result Performing Organization Address [facility] Co de Phone Number [facility] [address] [place] [phone] * HCG, Qualitative, Urine (08/07/2025 8:31 AM EST) Urine NEGATIVE NEGATIVE [facility] Comment:This test was develo ped to detect early . Falsenegative results may occur after the 5th - 7th week ofpregnancy when using this test method. If clinicallyindicated, consider a serum hCG. 08/07/2025 8:31 AM EST 08/07/2025 8:37 AM EST us Generic External Data Provider LAB URINE ORDERAB LES Final Result Performing Organization Address City/[facility] Co de Phone Number [facility] [address] [place] [phone] * Urinalysis, Complete, with Reflex to Culture (08/07/2025 8:31 AM EST) Color Urine Yellow [facility] Appearance Urine Clear [facility] PH 5.5 5.0 - 9.0 [facility] Glucose Urine UA Negative Negative mg/dL [facility] Urine Blood Negative Negative [facility] Specific [place] - Urine 1.025 1.005 - 1.025 [facility] Urine Protein Negative Neg-Trace mg/dL [facility] Urine Ketones Negative Negative mg/dL [facility] Nitrite Urine Negative Negative [facility] Leukocyte Esterase Urine Negative Negative [facility] RBC Urine 0-2 0 - 2 /HPF [facility] Urine WBC 0-5 0 - 5 /HPF [facility] Urine Squamous Epithelial Cell 6-10 0 - 2 /HPF [facility] Urine Bacteria None Seen None Seen [facility] Hyaline Casts, Urine 0-2 0 - 2 /LPF [facility] 08/07/2025 8:31 AM EST 08/07/2025 8:37 AM EST Narrative [facility] - 08/07/2025 8:46 AM EST [id number], [employer] us Generic External Data Provider LAB URINE ORDERAB LES Final Result [facility] [address] [place] [phone] * (ABNORMAL) CBC auto differential (08/07/2025 8:31 AM EST) White Blood Count 6.4 4.8 - 10.8 X10*3/uL [facility] Red Blood Count 4.66 4.20 - 5.50 X10*6/uL [facility] Hemoglobin 13.4 12.0 - 16.0 g/dl [facility] Hematocrit 40.6 37.0 - 47.0 % [facility] Mean Corpuscular Volume 87.1 80.0 - 98.0 fL [facility] Mean Corpuscular Hemoglobin 28.8 27.0 - 33.0 pg [facility] Mean Corpuscular HGB Conc 33.0 31.0 - 35.0 g/dl [facility] Red Cell Distribution Width 13.2 11.0 - 16.0 % [facility] Platelet Count 359 160 - 400 X10*3/uL [facility] Mean Platelet Volume 9.6 9.4 - 12.3 fL [facility] Neutrophils Percent Auto 52.3 45 - 73 % [facility] Imm Gran Pct Auto 0.2 0.0 - 0.4 % [facility] Lymphocytes Percent Auto 33.5 20 - 40 % [facility] Monocytes Percent Auto 6.4 2 - 11 % [facility] Eosinophils Percent Auto 6.8(H) 0 - 4 % [facility] Basophils Percent Auto 0.8 0 - 2 % [facility] NRBC Pct Auto 0.0 0.0 - 0.2 /100WBC [facility] Neutrophils Absolute Auto 3.3 2.0 - 8.3 x10*3/uL [facility] Imm Gran Abs Auto 0.01 0.00 - 0.03 X10*3/uL [facility] Lymphocytes Absolute Auto 2.1 1.2 - 4.9 X10*3/uL [facility] Monocytes Absolute Auto 0.4 0.1 - 1.2 X10*3/uL [facility] Eosinophils Absolute Auto 0.4 0.0 - 0.4 X10*3/uL [facility] Basophils Absolute Auto 0.1 0.0 - 0.2 X10*3/uL [facility] NRBC Abs Auto 0.000 0.0 - 0.012 X10*3/uL [facility] 08/07/2025 8:31 AM EST 08/07/2025 8:37 AM EST us Generic External Data Provider LAB BLOOD ORDERAB LES Final Result [facility] [address] [place] [phone] documented in this encounter Visit Diagnoses Not on filedocumented in this encounter Additional Health Concerns Assessment Noted Time PHQ-9 Depression Total Score: 3 01/25/20 25 2:27 PM EDT documented as of this encounter Care Teams Oiling Machine Operator Relationship Specialty Start Date End Date Ariadne Helton MD [address] [place] [address], [place] [address] PCP - General Family Medicine 03/22/20 documented as of this encounter
--- OUTSIDE RECORDS SUMMARY | 2025-08-07 09:14 | XMS_ITS | Encounter Summary ---
Author Organization [employer] Address [address] [facility] 7t [place] [address] Care Team Providers Care Bridge Tender Name Role Phone Ariadne Helton MD Primary Care Provide r Reason for Visit * Reason Onset Date Comments Error 12/01/2023 Encounter Details Date Type Department Care Team ([facility] st Contact Info) Description 12/01/2023 Telephone [facility] [address] [place], [place] [phone] Ariadne Helton MD [address] [place] [phone] Error Social History Tobacco Use Types Packs/Day [...] Info) Description 08/10/2025 2:30 PM EST Telemedicine [facility] [address] [place] [address] Ariadne Helton MD [address] [place] [phone] documented as of this encounter Visit Diagnoses Not on filedocumented in this encounter Care Teams Bridge Tender Relationship Specialty Start Date End Date Ariadne Helton MD [address] [place] [address] [phone] PCP - General Family Medicine 03/22/20 documented as of this encounter
[2025-08-07 10:41] VITALS: BP 106/61; PULSE 53; RESP 16; TEMP 36.6; O2SAT 98
[2025-08-07 11:47] VITALS: BP 106/61; PULSE 53; RESP 16; TEMP 36.6; O2SAT 98
== END 2025-08-07 11:48 | disposition home or self-care (01) ==
PROVIDERS: Emergency Provider Emergency Medicine; PCP Internal Medicine
DX: R10.11 Right upper quadrant pain (principal); Z87.440 Personal history of urinary (tract) infections
CPT/HCPCS: 36415; 71046; 76705; 80048; 80076; 81001; 81025; 83690; 85025; 96365; 99284; J0131

== ENCOUNTER → 2025-08-07 08:50 | Outpatient (BNV) | payer MEDICAID, SELFPAY | PROVIDERS: Emergency Provider Emergency Medicine; PCP Internal Medicine; Visit Provider Radiology Diagnostic Radiology | DX: K76.0 Fatty (change of) liver, not elsewhere classified (principal); R07.89 Other chest pain | CPT/HCPCS: 71046; 76705 ==

== ENCOUNTER 2025-10-02 08:44 | Outpatient (AMB) | payer MEDICAID, SELFPAY ==
--- NOTE | 2025-10-02 08:51 | MHC.OFFVIS ---
Vital Signs 10/02/25 08:58 Height 5 ft 2 in Weight 180 lb BMI 32.9 BP 115/75 Blood Pressure Location Lt brachial Position Sitting Respiration 16 Pulse 67 Pulse Source Pulse Oximeter Pulse Oximetry (%) 98 Oxygen Delivery Method Room Air Intake Visit Reasons: Migranes Loom Control Chain Builder Required: Yes Loom Control Chain Builder Services: Loom Control Chain Builder Offered & Declined Information Interpreted: non-clinical & clinical Accompanied by: Spouse Allergies aspirin (Aspirin) Allergy (Unknown, Verified 10/02/25 08:53) RASH HPI Comments Details: Anabel is a 34-year-old female patient with a past medical history constipation, obesity, and migraine here today for headache evaluation. She tells me today that she has had headaches since childhood. Her mother and sister also have a history of migraine. Her migraines have become very intense and are impacting her day-to-day life. Her typical headache is often frontotemporal radiating to the occipital areas and often times into the shoulders. Headaches can be unilateral or bilateral and are accompanied by nausea, light sensitivity, sound sensitivity, and often times mood changes including depression including crying at times. She generally does not vomit. Many of her headaches are preceded by vision changes described as lines or spots in vision. She takes sumatriptan which works only partially. - She takes a sumatriptan nearly daily and has been doing this for the past couple of months. She has also been taking meloxicam daily for quite some time now. She denies any jrai-evs-rpijvct medication use. Headache characteristics: Time of onset: Childhood Location:Temportal, occipital Radiation:Shoulders Positional component: No Character: pulsing and sharp Severity:Severe Duration:2 days Frequency:Every other day Acute aggravating factors:[] Acute relieving factors:[] Associated symptoms:[] Aura:Wavy lines before onset of headache Headache triggers:Bright lights and stress Relation to menses:Worse at time of menses Other related background information: Sleep:Reports that overall she sleeps well Stressors:Work and home balance Hydration:Hydrates well Caffeine intake:1-2 cups of coffee daily Alcohol intake:None Substance use:None Tobacco use:None Last eye exam:About 1 year ago Last dental visit:August 2025. Does clench at night History of head injury: None Family planning considerations:History of tubal ligation Past medication trials: Topiramate 50mg nightly- currently taking but no significant benefit Sumatriptan- Taking daily with only some benefit Meloxicam- Taking daily Prior workup: CT head July 2024: No acute findings PFSH Medical History (Updated 10/02/25 @ 09:41 by Sangita Chávez CNP) Vertigo Migraine Acute UTI Surgical History Hx laparoscopic cholecystectomy Hx of section History of abdominoplasty (~02/2023) Family History (Updated 10/02/25 @ 08:57 by Alexandra Mcmahan CMA) Father No problems noted. Mother Migraine Hypertension Social History (Updated 10/02/25 @ 08:58 by Alexandra Mcmahan CMA) Alcohol intake: never Patient Tobacco Use Status: Never used Tobacco Review of Systems Const All systems reviewed & are unremarkable except as noted in HPI and below Physical Exam Vital Signs: Last Vital Signs Pulse 67 10/02/25 08:58 Resp 16 10/02/25 08:58 BP 115/75 10/02/25 08:58 Pulse Ox 98 10/02/25 08:58 Oxygen Delivery Method Room Air 10/02/25 08:58 BMI result Body Mass Index 32.9 Const General: cooperative, healthy appearing, comfortable and no acute distress Nutritional Appearance: well nourished Orientation/consciousness: patient oriented x3 Limitations: no limitations HEENT Head: Yes normal to inspection and Yes normocephalic Eyes General: appearance normal, both eyes and all related structures Visual Duncan: normal visual duncan by confrontation Alignment and Position: alignment normal Periorbital: periorbital findings normal Eyelids: Yes eyelids normal Conjunctivae: conjunctivae normal Sclerae: sclerae normal Direct Ophthalmoscopy: normal light reflex Neuro General: patient oriented x3 Cranial nerves: Yes CN's II-XII intact bilaterally and Yes Facial sensation intact/muscles of mastication intact Cognition (Neuro): normal cognition Gait exam (Neuro): Normal gait present Motor exam (neuro): 5/5 motor strength present throughout and no tremor noted Sensory Exam: double simultaneous stimulation for sensation normal Romberg Test: Negative Pupils: Normal pupillary reactivity/response: bilateral Psych Appearance: grossly normal Mental Status: mental status grossly normal Speech and movement: Normal speech and movement present and Clear speech present Affect: normal affect Attitude: cooperative Thought process: Normal thought process present Thought content: Normal thought content present Insight: Good insight present (Psych) Judgement: Good judgement present (Psych) Assessment & Plan Assessment & Plan (1) Chronic migraine with aura without status migrainosus, not intractable: Code(s): G43.E09 - Chronic migraine with aura, not intractable, without status migrainosus Category: Medical Plan Anabel is a 34-year-old female patient with a past medical history constipation, obesity, and migraine here today for headache evaluation. Headaches are consistent with a diagnosis of chronic migraine with aura. She is currently on topiramate but not having any profound improvement with this. We will continue for now but will likely taper off of this in the future. In the meantime, I will start amitriptyline 10 mg nightly and then increase to 20 mg nightly after a week or so. Medication overuse is likely playing a major role in her headache escalation. I will have her stop the meloxicam and sumatriptan and in the meantime start a Medrol Armando for acute treatment in corporate administrative assistant with weaning off of the abortive therapies. If the amitriptyline does not work, I would consider next steps including anti CGRP once monthly injection and at time of next visit we will also need to address her acute therapy needs. Next steps likely would include a trial of rizatriptan taken no more than 3 days per week. -Trial of amitriptyline 10mg nightly then 20mg nightly -Stop the maloxicam and sumatiptan -Medrol-pack for acute headache treatment and assistance with medication overuse resolution -Continue topiramate at same dose for now -At next visit consider an alternative abortive therapy and start weaning of topiramate if headaches improve -If headaches do not improve, would consider a once monthly anti-CGRP injection Medications: New topiramate 50 mg PO BEDTIME 30 tabs 1RF 30 days amitriptyline Take 1 tablet at bedtime for 2 weeks and then increase to 2 tablets nightly. 20 mg (2 x 10 mg) PO BEDTIME 60 tabs 5RF 30 days methylprednisolone (Medrol (Armando)) PO PER PKG DIR for 6 days 21 ea 0RF Discontinued meloxicam Discontinued Reason: Doctor's Order 15 mg PO DAILY 10 tabs 0RF Coding Level of Care Code Est Pt Level 4 (80552) Diagnoses Chronic migraine with aura without status migrainosus, not intractable G43.E09
--- OUTSIDE RECORDS SUMMARY | 2025-10-02 08:51 | XMS_ITS | Encounter Summary ---
Author Organization [employer] Address [address] [facility] 7t [place] [address] Care Team Providers Care Spice Room Worker Name Role Phone Ariadne Helton MD Primary Care Provide r Reason for Visit * Reason Onset Date Comments Error 12/01/2023 Encounter Details Date Type Department Care Team ([facility] st Contact Info) Description 12/01/2023 Telephone [facility] [address] [place], [place] [phone] Ariadne Helton MD [address] [place] [address] Error Social History Tobacco Use Types Packs/Day [...] Care Team (Late st Contact Info) Description 10/16/2025 2:30 PM EST Office Visit [facility] [address] [place] [address] Mary Young, OD [address] [place] [address] 11/06/2025 1:30 PM EST Office Visit [facility] [address] [place] [address] Ariadne Helton MD [address] [place] [address] documented as of this encounter Visit Diagnoses Not on filedocumented in this encounter Care Teams Spice Room Worker Relationship Specialty Start Date End Date Ariadne Helton MD [address] [place] [address] PCP - General Family Medicine 03/22/20 documented as of this encounter
--- OUTSIDE RECORDS SUMMARY | 2025-10-02 08:51 | XMS_ITS | Encounter Summary ---
Author Organization [employer] Address [address] [facility] [address] [place] [address] Care Team Providers Care Geophysical Manager Name Role Phone Ariadne Helton MD Primary Care Provide r Reason for Visit * Reason Onset Date Comments Nurse Triage 03/14/2024 Encounter Details Date Type Department Care Team ([facility] st Contact Info) Description 03/14/2024 Telephone [facility] MEDICINE [address] [place], [place] [phone] Ariadne Helton MD [address] [place], [place] [phone] Nurse Triage Social History Tobacco Use Types [...] has tummy tuck surgery on 02/25/24 in [place]. Pt states that at this timeshe is [...] Reason: Caller denied all higher acuity questions Northern Irish Speaker Pt stated they have stitches on their stomach and she feels stitches are tearing and has caused some bleeding. documented in this encounter Plan of Treatment Upcoming Encounters Date Type Department Care Team (Late st Contact Info) Description 10/16/2025 2:30 PM EST Office Visit [facility] OPTOMETRY [address] [place], [place] [phone] Mary Young, OD [address] [place] [address] 11/06/2025 1:30 PM EST Office Visit [facility] MEDICINE [address] [place], [place] [phone] Ariadne Helton MD [address] [place], [place] [phone] documented as of this encounter Visit Diagnoses Not on filedocumented in this encounter Additional Health Concerns Assessment Noted Time PHQ-9 Depression Total Score: 0 02/03/20 24 2:36 PM EDT documented as of this encounter Care Teams Geophysical Manager Relationship Specialty Start Date End Date Ariadne Helton MD [address] [place], [place] [phone] PCP - General Family Medicine 03/22/20 documented as of this encounter
--- OUTSIDE RECORDS SUMMARY | 2025-10-02 08:51 | XMS_ITS | Encounter Summary ---
Author Organization [employer] Address [address] [facility] [address] [place] [address] Care Team Providers Care Turpentine Farmer Name Role Phone Ariadne Helton MD Primary Care Provide r Reason for Visit * Reason Onset Date Comments triage 10/14/2022 Encounter Details Date Type Department Care Team ([facility] st Contact Info) Description 10/14/2022 Telephone [facility] MEDICINE [address] [place], [place] [phone] Ariadne Helton MD [address] [place] [phone] triage Social History Tobacco Use Types Packs/Day [...] 10/14/2022 1:14 PM EST Triage call with [employer]er ID [id number]. Pt reports right shoulder pain for last [...] and using ice/heat. 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 appt with Dr. Barrientos 10/23 [...] Description 10/16/2025 2:30 PM EST Office Visit [facility] OPTOMETRY [address] [place] [address] Mary Young, OD [address] [place] [address] 11/06/2025 1:30 PM EST Office Visit [facility] MEDICINE [address] [place] [address] Ariadne Helton MD [address] [place] [address] documented as of this encounter Visit Diagnoses Not on filedocumented in this encounter Care Teams Turpentine Farmer Relationship Specialty Start Date End Date Ariadne Helton MD [address] [place] [id number] PCP - General Family Medicine 03/22/20 documented as of this encounter
--- OUTSIDE RECORDS SUMMARY | 2025-10-02 08:51 | XMS_ITS | Clinical Summary ---
Author Organization [employer] Address [address] [facility] [address] [place] [address] Care Team Providers Care Cotton Classer Aide Name Role Phone Ariadne Helton MD Primary [...] 2 times daily. 527 g 5 Active famotidine (Pepcid) 20 MG tabletIndications :Abdominal pain, RUQ Take 1 tablet (20 mg) by mouth 2 times daily. 60 tablet 11 08/10/20 26 Active Active Problems Problem Noted Date Diagnosed Date Abdominal pain, RUQ 08/10/2025 Assessment & Plan (08/10/2025 3:11 PM EST): I advise patient to avoid NSAIDs, spicy and acid food, I advise to eat at the same time every day, I advise to elevate the head of the bed and take medications as prescribe I will prescribe famotidine 20 mg twice daily I will refer her to gastroenterology Benign paroxysmal vertigo of both ears Assessment & Plan (08/10/2025 3:11 PM EST): Maintain hydration Change positions slowly Do not miss appointment with therapist for vestibular therapy Assessment & Plan (03/03/2025 11:16 AM EDT): When she has vertigo episode cannot drive or work, [facility] paperwork will be filled out for her I advised to drink plenty of water and change positions slowly Patient already referred to ENT I refer her for vestibular therapy I prescribed for her meclizine 25 mg every 8 hours as needed Severe anxiety 01/24/2025 Assessment & Plan (01/24/2025 4:41 PM EDT): [facility] called today we will follow recommendations, at this time patient does not want medications for anxiety or depression Assessment & Plan (01/24/2025 12:07 PM EDT): PROGRESS NOTE: ID: Anabel is a 34 y.o. Decline to answer choose not to disclose- identified cis-female with previous documented hx of Depression and Anxiety No previous hx of services who presents for Anxiety and Depression [...] all symptoms in the context of ending snf relationship, co-parenting, fearful of judgement, living in hostile environment . 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 Iron deficiency 05/19/2024 Temporary high [...] migrainosus, not intractable 02/03/2024 Assessment & Plan (08/10/2025 3:13 PM EST): I advise to avoid migraine triggers like red wine, chocolate, cheese, strong perfumes Continue with topiramate 50 mg at bedtime and sumatriptan 50 mg as needed Do not miss appointment with neurology Assessment & Plan (03/03/2025 11:17 AM EDT): [...] Encounters Date Type Department Care Team Description 09/05/2025 Telephone [facility] MEDICINE [address] [place] [phone] Ariadne Helton MD Call Back Request ; FMLA (Late entry: On 09/05/25 I called the patient, regarding an application for FMLA. She stated that the leave will be intermittent, and she may possibly be out from 1 to 3 days a week. She stated that she missed her appointment with Physical Therapy on 08/17/25, because she was ill, and had to go to the ED. Her appointment has been rescheduled for 09/25/25.) 08/29/[address] [address] Ariadne Helton MD feb recall 08/10/2025 2:30 PM EST Telemedicine [address] [address] Ariadne Helton MD Migraine with aura and without status migrainosus, not intractable (Primary Dx); Abdominal pain, RUQ; Benign paroxysmal vertigo of both ears 08/10/2025 Travel 08/07/[address] [address] Ariadne Helton MD Referral 08/07/2025 Orders Only GENERIC EXTERNAL DATA DEPARTMENT Provider, Generic External Data 07/25/[address] [address] Ariadne Helton MD 07/24/[address] [address] Ariadne Helton MD Nurse Triage 07/14/2025 3:00 PM EDT Office Visit [address] [address] [facility], IT ASSISTANT Constipation, unspecified constipation type (Primary Dx); Chest pain, musculoskeletal 07/14/2025 Travel 07/12/2025 Orders Only GENERIC EXTERNAL DATA DEPARTMENT Provider, Generic External Data 07/06/[address] [address] Ariadne Helton MD Med Refill from Last [...] Description 10/16/2025 2:30 PM EST Office Visit [facility] OPTOMETRY [address] [place], [place] [phone] Mary Young, OD [address] [place] [address] 11/06/2025 1:30 PM EST Office Visit [facility] MEDICINE [address] [place] [address] Ariadne Helton MD [address] [place], [place] [phone] Health Maintenance Due Date Last Done Comments Family Planning (PISQ) 12/18/2006 HPV Vaccines (1 - 3-dose series) 12/18/2006 Hepatitis B Vaccines (1 of 3 - 19+ 3-dose series) 12/18/2010 COVID-19 Vaccine ( - 2024-2 6 season) 2025 Influenza Vaccine (#1) 2025 5, 01/10/2015 DTaP/Tdap/Td Vaccines (2 - T d or Tdap) 06/22/2025 06/22/2015 Alcohol/Substance Use Screening 12/05/2025 12/05/2024 SDOH Screening 12/05/2025 12/05/2024 Depression Screening 01/24/2026 01/24/2025, 01/24/2025 Tobacco Screening 07/17/2026 07/17/2025 Disability Screening 08/10/2026 08/10/2025 Cervical Cancer Screening 10/28/2028 HPV/Cotest 10/28/2028 10/28/2023 [...] Procedure Name Priority Date/Time Associated Diagnosis Comments ECG 12-LEAD Routine 08/21/2025 4:16 PM EST Chest pain, musculoskeletal XR CHEST 2 VIEWS Routine 08/07/2025 9:50 AM EST US ABDOMEN LIMITED Routine 08/07/2025 9: 08 AM EST LIPASE Routine 08/07/2025 8:31 AM EST BASIC [...] Recently Relevant to Health Maintenance Results * ECG 12 lead (08/21/2025 4:16 PM EST) Acacia Blankenship FNP - 08/21/2025 4:16 PM EST NSR. See scanned report [facility] ECG ORDERABLES Final Result * XR Chest 2 Views (08/07/2025 9:50 AM EST) Anatomical Region Laterality Modality Chest Radiographic Yamini ging 08/07/2025 9:50 AM EST Narrative 08/07/2025 10:03 AM EST [address] [address] XRay Report Signed Patient: Anabel Handley MR#: [id number] 8 : 1990 Acct:[id number] Age/Sex: 34 / F ADM Date: 08/07/25 Loc: HO.ED Attending Dr: Ordering Physician: Lupe Bonilla Date of Service: 08/07/25 Procedure(s): XR chest 2V Accession Number(s): [id number] cc: Ariadne Helton MD; Lupe Bonilla Reason for Exam: right lower rib pain EXAMINATION: XR CHEST CLINICAL INFORMATION: right lower rib pain COMPARISON: February 22, 2025. TECHNIQUE: PA and lateral views. FINDINGS: No consolidation, pleural effusion or pneumothorax. No hyperinflation. Cardiomediastinal silhouette size is normal. Osseous structures are intact. Vascular clips right upper quadrant abdomen likely prior laparoscopic cholecystectomy. Patient's large body habitus. XR/XR chest 2V IMPRESSION: No acute airspace disease. Stable chest. Electronically signed by: Gil García MD 08/07/2025 10:00 AM EST Dictated By: Gil Mcrae MD Signed By: <Electronically signed by Gil Mayfield MD in OV> 08/07/25 1000 DD/ 0950 TD/TT: 08/07/25 0952 Core Dipper: Procedure Note Donotuseinterpreter, Image - 08/07/[address] [address] XRay Report Signed Patient: Anabel HandleyMR#: [id number] 8 : 1990Acct:[id number] Age/Sex: 34 / FADM Date: 08/07/25 Loc: HO.ED Attending Dr: Ordering Physician: Lupe Bonilla Date of Service: 08/07/25 Procedure(s): XR chest 2V Accession Number(s): [id number] cc: Ariadne Helton MD; Lupe Bonilla Reason for Exam: right lower rib pain EXAMINATION: XR CHEST CLINICAL INFORMATION: right lower rib pain COMPARISON: February 22, 2025. TECHNIQUE: PA and lateral views. FINDINGS: No consolidation, pleural effusion or pneumothorax. No hyperinflation. Cardiomediastinal silhouette size is normal. Osseous structures are intact. Vascular clips right upper quadrant abdomen likely prior laparoscopic cholecystectomy. Patient's large body habitus. XR/XR chest 2V IMPRESSION: No acute airspace disease. Stable chest. Electronically signed by: Gli García MD 08/07/2025 10:00 AM EST RP Dictated By: Gil Mcrae MD Signed By: <Electronically signed by Gil Mayfield MDin OV> 08/07/25 1000 DD/ 0950 TD/TT: 08/07/25 0952 Core Dipper: [facility] External Provider IMG XR PROCEDURES Edited Result - Final * US Abdomen Limited (08/07/2025 9:08 AM EST) Anatomical Region Laterality Modality Abdomen Ultrasound 08/07/2025 9:08 AM EST Narrative 08/07/2025 9:48 AM EST [place] [address] Ultrasound Report Signed Patient: Anabel Handley MR#: [id number] 8 : 1990 Acct:[id number] Age/Sex: 34 / F ADM Date: 08/07/25 Loc: HO.ED Attending Dr: Ordering Physician: Lupe Bonilla Date of Service: 08/07/25 Procedure(s): US abdomen limited Accession Number(s): [id number] cc: Ariadne Helton MD; Lupe Bonilla Reason for Exam: RUQ EXAMINATION: US ABDOMEN LIMITED HISTORY: RUQ TECHNIQUE: Real-time grayscale ultrasound imaging of the right upper quadrant was performed and images were reviewed. COMPARISON: Correlation is made with a contrast-enhanced CT of the abdomen dated 07/12/2025. FINDINGS: Liver: The right lobe of the liver measures 15.6 cm in size. The left lobe of the liver measures 8.8 cm in size. The liver demonstrates mildly increased echotexture, consistent with steatosis. No focal mass or intrahepatic biliary ductal dilatation is identified. There is normal hepatopedal flow in the portal vein. Gallbladder and biliary tree: The gallbladder is surgically absent. The common bile duct is normal in caliber measuring 3 mm. Right Kidney: The right kidney measures 10.0 cm in length. The right kidney is unremarkable, without evidence of masses, hydronephrosis, or calculi. Pancreas: The pancreatic head, neck, and body are unremarkable. The pancreatic tail is obscured by bowel gas. There is no free fluid in the right upper quadrant. US/US abdomen limited IMPRESSION: Mild hepatic steatosis. Otherwise unremarkable right upper quadrant ultrasound. Electronically signed by: Rudi Nobles MD 08/07/2025 09:45 AM EST Dictated By: Rudi Nobles MD Signed By: <Electronically signed by Rudi Nobles MD in OV> 08/07/[address] DD/ 7 TD/TT: 08/07/25924 Core Dipper: Procedure Note Donotuseinterpreter, Image - 08/07/2025 [place] [address] Ultrasound Report Signed Patient: Anabel HandleyMR#: [id number] 8 : 1990Acct:[id number] Age/Sex: 34 / FADM Date: 08/07/25 Loc: HO.ED Attending Dr: Ordering Physician: Lupe Bonilla Date of Service: 08/07/25 Procedure(s): US abdomen limited Accession Number(s): [id number] cc: Ariadne Helton MD; Lupe Bonilla Reason for Exam: RUQ EXAMINATION: US ABDOMEN LIMITED HISTORY: RUQ TECHNIQUE: Real-time grayscale ultrasound imaging of the right upper quadrant was performed and images were reviewed. COMPARISON: Correlation is made with a contrast-enhanced CT of the abdomen dated 07/12/2025. FINDINGS: Liver: The right lobe of the liver measures 15.6 cm in size. The left lobe of the liver measures 8.8 cm in size. The liver demonstrates mildly increased echotexture, consistent with steatosis. No focal mass or intrahepatic biliary ductal dilatation is identified. There is normal hepatopedal flow in the portal vein. Gallbladder and biliary tree: The gallbladder is surgically absent. The common bile duct is normal in caliber measuring 3 mm. Right Kidney: The right kidney measures 10.0 cm in length. The right kidney is unremarkable, without evidence of masses, hydronephrosis, or calculi. Pancreas: The pancreatic head, neck, and body are unremarkable. The pancreatic tail is obscured by bowel gas. There is no free fluid in the right upper quadrant. US/US abdomen limited IMPRESSION: Mild hepatic steatosis. Otherwise unremarkable right upper quadrant ultrasound. Electronically signed by: Rudi Nobles MD 08/07/2025 09:45 AM EST Dictated By: Rudi Nobles MD Signed By: <Electronically signed by Rudi Nobles MD in OV> 08/07/2545 DD/ 7 TD/TT: 08/07/25924 Core Dipper: us [facility] External Provider IMG US PROCEDURES Edited Result - Final * Urinalysis, Complete, with Reflex to Culture (08/07/2025 8:31 AM EST) Color Urine Yellow [facility] Appearance Urine Clear [facility] PH 5.5 5.0 - 9.0 [facility] Glucose Urine UA Negative Negative mg/dL [facility] Urine Blood Negative Negative [facility] Specific [place] - Urine 1.025 1.005 - 1.025 [facility] Urine Protein Negative Neg-Trace mg/dL [facility] Urine Ketones Negative Negative mg/dL [facility] Nitrite Urine Negative Negative [facility] Leukocyte Esterase Urine Negative Negative [facility] RBC Urine 0-2 0 - 2 /HPF [facility] Urine WBC 0-5 0 - 5 /HPF [facility] Urine Squamous Epithelial Cell 6-10 0 - 2 /HPF [facility] Urine Bacteria None Seen None Seen [facility] Hyaline Casts, Urine 0-2 0 - 2 /LPF [facility] 08/07/2025 8:31 AM EST 08/07/2025 8:37 AM EST Narrative [facility] - 08/07/2025 8:46 AM EST [id number], Clean Catch us Generic External Data Provider LAB URINE ORDERAB LES Final Result [facility] [address] [place] [phone] * (ABNORMAL) CBC auto differential (08/07/2025 8:31 AM EST) Only the most recent of2 resultswithin the time period is included. White Blood Count 6.4 4.8 - 10.8 X10*3/uL [facility] Red Blood Count 4.66 4.20 - 5.50 X10*6/uL [facility] Hemoglobin 13.4 12.0 - 16.0 g/dl [facility] Hematocrit 40.6 37.0 - 47.0 % [facility] Mean Corpuscular Volume 87.1 80.0 - 98.0 fL [facility] Mean Corpuscular Hemoglobin 28.8 27.0 - 33.0 pg [facility] Mean Corpuscular HGB Conc 33.0 31.0 - 35.0 g/dl [facility] Red Cell Distribution Width 13.2 11.0 - 16.0 % [facility] Platelet Count 359 160 - 400 X10*3/uL [facility] Mean Platelet Volume 9.6 9.4 - 12.3 fL [facility] Neutrophils Percent Auto 52.3 45 - 73 % [facility] Imm Gran Pct Auto 0.2 0.0 - 0.4 % [facility] Lymphocytes Percent Auto 33.5 20 - 40 % [facility] Monocytes Percent Auto 6.4 2 - 11 % [facility] Eosinophils Percent Auto 6.8(H) 0 - 4 % [facility] Basophils Percent Auto 0.8 0 - 2 % [facility] NRBC Pct Auto 0.0 0.0 - 0.2 /100WBC [facility] Neutrophils Absolute Auto 3.3 2.0 - 8.3 x10*3/uL [facility] Imm Gran Abs Auto 0.01 0.00 - 0.03 X10*3/uL [facility] Lymphocytes Absolute Auto 2.1 1.2 - 4.9 X10*3/uL [facility] Monocytes Absolute Auto 0.4 0.1 - 1.2 X10*3/uL [facility] Eosinophils Absolute Auto 0.4 0.0 - 0.4 X10*3/uL [facility] Basophils Absolute Auto 0.1 0.0 - 0.2 X10*3/uL [facility] NRBC Abs Auto 0.000 0.0 - 0.012 X10*3/uL [facility] 08/07/2025 8:31 AM EST 08/07/2025 8:37 AM EST us Generic External Data Provider LAB BLOOD ORDERAB LES Final Result [facility] [address] [place] [phone] * HCG, Qualitative, Urine (08/07/2025 8:31 AM EST) Only the most recent of2 resultswithin the time period is included. Urine NEGATIVE NEGATIVE [facility] Comment:This test was develo ped to detect early . Falsenegative results may occur after the 5th - 7th week ofpregnancy when using this test method. If clinicallyindicated, consider a serum hCG. 08/07/2025 8:31 AM EST 08/07/2025 8:37 AM EST us Generic External Data Provider LAB URINE ORDERAB LES Final Result Performing Organization Address [facility] [address]/[facility] Co de Phone Number [facility] [address] [place] [phone] * Lipase (08/07/2025 8:31 AM EST) Only the most recent of2 resultswithin the time period is included. Lipase 34 8 - 78 U/L [facility] 08/07/2025 8:31 AM EST 08/07/2025 8:37 AM EST us Generic External Data Provider LAB BLOOD ORDERAB LES Final Result Performing Organization Address [facility] Phone Number [facility] [address] [place] [phone] * Hepatic Function Panel (08/07/2025 8:31 AM EST) Only the most recent of2 resultswithin the time period is included. Bilirubin, Total 0.3 0.0 - 1.0 mg/dL [facility] Bilirubin, Direct 0.1 0.0 - 0.5 mg/dL [facility] Aspartate Amino Transferase 21 5 - 31 U/L [facility] Alanine Aminotransferase 19 0 - 31 U/L [facility] Total Protein 7.3 6.5 - 8.0 g/dL [facility] Albumin Level 4.1 3.5 - 5.0 g/dL [facility] Alkaline Phosphatase 75 39 - 117 U/L [facility] 08/07/2025 8:31 AM EST 08/07/2025 8:37 AM EST us Generic External Data Provider LAB BLOOD ORDERAB LES Final Result Performing Organization Address [facility] [address] [facility] Co de Phone Number [facility] [address] [place] [phone] * (ABNORMAL) Basic Metabolic Panel (08/07/2025 8:31 AM EST) Only the most recent of2 resultswithin the time period is included. Sodium 140 135 - 145 mmol/L [facility] Potassium 3.8 3.3 - 5.1 mmol/L [facility] Chloride 108 96 - 108 mmol/L [facility] Carbon Dioxide 27 22 - 29 mmol/L [facility] Anion Gap 9(L) 12 - 20 [facility] Urea Nitrogen (BUN) 9 9 - 16 mg/dL [facility] Creatinine, Serum 0.72 0.5 - 1.4 mg/dL [facility] Creatinine Clr Calc Pharmacy 110.7 [facility] Comment:Provided height and weight: 157.48 cm,82.6 kg.eGFR (calculated from the MDRD study equation) and eCrCl(calculated from the Cockcroft-Gault equation) are based ondifferent parameters and may not yield comparable results.If eCrCl result is absurd, please check patient'sheight/weight. Estimated Glomerular Filt Rate >60 [facility] Comment:Chronic Kidney Disea se: Estimated GFR < 60 mL/min/1.36f3Psdoyw Kidney Disease: Estimated GFR < 15 mL/min/1.73m2 Glucose 98 60 - 115 mg/dL [facility] Calcium 9.0 8.4 - 10.2 mg/dL [facility] 08/07/2025 8:31 AM EST 08/07/2025 8:37 AM EST us Generic External Data Provider LAB BLOOD ORDERAB LES Final Result [facility] [address] [place] [phone] * CT Abdomen Pelvis w/ Contrast (07/12/2025 9:51 AM EDT) Anatomical Region Laterality Modality Body, Pelvis, Abdomen Computed T omography 07/12/2025 9:51 AM EDT Narrative 07/12/2025 10:24 AM EDT [address] [address] [address] Scan Report Signed Patient: Anabel Handley MR#: [id number] 8 : 1990 Acct:[id number] Age/Sex: 34 / F ADM Date: 07/12/25 Loc: HO.ED Attending Dr: Ordering Physician: Roseline De Date of Service: 07/12/25 Procedure(s): CT abdomen pelvis w IV con Accession Number(s): [id number] cc: Ariadne Helton MD; Roseline De Report Number: [id number]: Total DLP = 793.00 mGy-cm Reason for [...] 07/12/25 1021 DD/ 0951 TD/TT: 07/12/25 1008 Core Dipper: Procedure Note Donotuseinterpreter, Image - 07/12/[address] [place] [address] [address] Scan Report Signed Patient: Anabel Handley#: [id number] 8 : 1990Acct:[id number] Age/Sex: 34 / FADM Date: 07/12/25 Loc: .ED Attending Dr: Ordering Physician: Roseline De Date of Service: 07/12/25 Procedure(s): CT abdomen pelvis w IV con Accession Number(s): [id number] cc: Ariadne Helton MD; Roseline De Report Number: [id number]: Total DLP = 793.00 mGy-cm Reason for [...] 07/12/25 1021 DD/ 0951 TD/TT: 07/12/25 1008 Core Dipper: [facility] External Provider IMG CT PROCEDURES Final Result * Urinalysis w/reflex microscopic (07/12/2025 8:24 AM EDT) Color Urine Yellow [facility] Appearance Urine Clear [facility] PH 5.5 5.0 - 9.0 [facility] Glucose Urine UA Negative Negative mg/dL [facility] Urine Blood Negative Negative [facility] Specific [place] - Urine 1.025 1.005 - 1.025 [facility] Urine Protein Negative Neg-Trace mg/dL [facility] Urine Ketones Negative Negative mg/dL [facility] Nitrite Urine Negative Negative [facility] Leukocyte Esterase Urine Negative Negative [facility] 07/12/2025 8:24 AM EDT 07/12/2025 8:29 AM EDT Narrative [facility] - 07/12/2025 8:36 AM EDT Urine, Clean Catch Generic External Data Provider LAB URINE ORDERAB LES Final Result Performing Organization Address City/[facility] [address] [facility] Co de Phone Number [facility] [address] [place] [phone] * High Sensitivity Troponin I (07/12/2025 8:23 AM EDT) TROPONIN I HIGH SENSITIVITY <2.7 <3.5 - 17.0 ng/L [facility] Comment:The Bell high sens itivity Troponin-I results should beused in conjunction with other diagnostic information suchas ECG, clinical observations and information, and patientsymptoms to aid in the diagnosis of PA. 07/12/2025 8:23 AM EDT 07/12/2025 9:10 AM EDT Generic External Data Provider LAB BLOOD ORDERAB LES Final Result Performing Organization Address City/[facility] [address]/ZIP Co de Phone Number [facility] [address] [place] [phone] * Hepatitis Panel, General (01/03/2025 3:29 PM EDT) Hepatitis A IgM Nonreactive Nonreactive [facility] Comment:IgM antibodies to HERNANDEZ V not detected; does not exclude earlyacute or recovered HAV infection. ~Hepatitis B Surface Antibody REACTIVE Nonreactive [facility] Comment:REACTIVE: > 11.99 mI U/mL Hepatitis B Core Antibody Nonreactive Nonreactive [facility] Hepatitis C Antibody Nonreactive Nonreactive [facility] Comment:Antibodies to HCV no t detected; does not exclude early acuteHCV infection. Hepatitis B Surface Ag Negative Negative [facility] Blood Venous blood specimen / Unknown 01/03/2025 3:29 PM EDT 01/03/2025 4:07 PM EDT us Ariadne Krueger MD LAB BLOOD ORDERABLES Final Result [facility] [address] [place] [phone] * HIV-1/2 Antigen and Antibodies, Fourth Generation, with Reflexes (01/03/2025 3:29 PM EDT) HIV AB/AG Nonreactive Nonreactive [facility] Comment:HIV-1 p24 Ag and/or HIV-1/HIV-2 Ab not detected.A test result that is nonreactive does not exclude thepossibility of exposure to or infection with HIV-1 and/orHIV-2. Nonreactive results in this assay for individualswith prior exposure to HIV-1 and/or HIV-2 may be due toantigen and antibody levels that are below the limit ofdetection of this assay.The [employer] HIV Ag/Ab Combo assay result andsupplemental assay results should be interpreted inconjunction with the patient's clinical presentation,history and other laboratory results. If the results areinconsistent with clinical evidence, additional testing issuggested to confirm the result. Blood Venous blood specimen / Unknown 01/03/2025 3:29 PM EDT 01/03/2025 4:07 PM EDT us Ariadne Krueger MD LAB BLOOD ORDERABLES Final Result Performing Organization Address [facility] [address]/ZIP Co de Phone Number [facility] [facility] [address] [place] [phone] * Lipid Panel with Reflex to Direct LDL (05/18/2024 12:58 PM EDT) Triglycerides 105 <150 mg/dL [facility] Comment:Desirable Triglyceri de: less than 150 mg/dLBorderline High Triglyceride 150-199 mg/dLHigh Triglyceride: 200-499 mg/dLVery High Triglyceride: greater than or equal to 5OO mg/dL Cholesterol 183 <200 mg/dL [facility] Comment:Desirable Cholestero l: less than 200 mg/dLBorderline High Cholesterol: 200-239 mg/dLHigh Cholesterol: greater than 239 mg/dL LDL Cholesterol Calculated 85 <100 mg/dL [facility] Comment:Desirable LDL: less than 100 mg/dLNear Optimal/Above Optimal LDL: 110- 129 mg/dLBorderline High LDL: 130-159 mg/dLHigh LDL: 160-189 mg/dLVery High LDL: greater than or equal to 190 mg/dL HDL Cholesterol 77 >40 mg/dL [facility] Comment:Desirable HDL: great er than 40 mg/dL Note: This HDL assay may give artificially low results in patients with liver disease. Blood 05/18/2024 12:5 8 PM EDT 05/18/2024 4:09 PM EDT us Ariadne Krueger MD LAB BLOOD ORDERABLES Final Result Performing Organization Address [facility] [address]/ZIP Co de Phone Number [facility] [address] [place] [phone] * Image-Guided Pap with Age-Based Screening??with CT/NG,??Trichomonas (10/28/2023 4:20 PM EST) Trichomonas (NAAT) NOT DETECTED NOT DETECTED [facility] Comment:The analytical perfo rmance characteristics of thisassay have been determined by [facility]. Themodifications have not been cleared or approved bythe FDA. This assay has been validated pursuant to theIA regulations and is used for clinical purposes.For additional information, please refer [email or web address].Rivono/faq/Trichomonastma(This link is being provided for information/educational purposes only.)THIS TEST WAS PERFORMED AT:[facility] [place] [id number] SUMNER MD CTNG Ref Lab NOT DETECTED NOT DETECTED [facility] NG Ref Lab NOT DETECTED NOT DETECTED [facility] 10/28/2023 4:20 PM EST 10/29/2023 12:37 PM EST Ariadne Krueger MD LAB CYTOLOGY ORDERABL ES Final Result [facility] [address] [place] [phone] * HPV mRNA E6/E7 w/Reflex to HPV Genotypes 16, 18/45 (10/28/2023 4:20 PM EST) HPV nRNA E6/E7 Not Detected Not Detected [facility] Comment:Methodology: Transcr iption-Mediated AmplificationThis assay detects E6/E7 viral messenger RNA (mRNA) from 14high-risk HPV types (16,18,31,33,35,39,45,51,52,56,58,59,66,68).Cervical sources are required for HPV testing.If a vaginal source from a patient who has had atotal hysterectomy with removal of cervix wassubmitted, please contact the testing laboratoryfor alternative testing options.For additional information, please refer tohttp://education.[employer].Zattoo/faq/VZE657b7(This link if provided for information/educational purposes only.)THIS TEST WAS PERFORMED AT:[facility] [place] [phone] SUMNER MD HPV mRNA E6/E7 TNP [facility] HPV 16 RNA TNP [facility] HPV 18/45 RNA [facility] 10/28/2023 4:20 PM EST 10/29/2023 8:00 AM EST us Ariadne Krueger MD LAB CYTOLOGY ORDERABL ES Final Result [facility] [address] [place] [phone] from Last 3 Months or Most Recently Relevant to Health Maintenance [facility] [employer] Care Teams Cotton Classer Aide Relationship Specialty Start Date End Date Ariadne Helton MD [address] [place] [phone] PCP - General Family Medicine 03/22/20
--- OUTSIDE RECORDS SUMMARY | 2025-10-02 08:51 | XMS_ITS | Encounter Summary ---
Author Organization [email or web address] Address [address] [facility] [address] [place] [address] Care Team Providers Care Nursing Informatics Analyst Name Role Phone Ariadne Helton MD Primary Care Provide r Reason for Visit * Reason Onset Date Comments Nurse Triage 05/11/2024 Encounter Details Date Type Department Care Team ([facility] st Contact Info) Description 05/11/2024 Telephone [facility] [address] [place], [place] [phone] Ariadne Helton MD [address] [place], [place] [phone] Nurse Triage Social History Tobacco Use Types [...] 05/11/2024 11:20 AM EDT Triage call with [employer] Validation Technician ID [id number] Pt reports chronic dizziness for last 2-3 [...] prevention. Pt is offered to come to [facility] today but, declines and is requesting apt [...] accepted this outcome Please contact pt @ [phone] documented in this encounter Plan of Treatment Upcoming Encounters Date Type Department Care Team (Late st Contact Info) Description 10/16/2025 2:30 PM EST Office Visit [facility] [address] [place], [place] [phone] Tarangely Mary, OD [address] [place] [address] 11/06/2025 1:30 PM EST Office Visit [facility] [address] [place] [phone] Ariadne Helton MD [address] [place] [phone] documented as of this encounter Visit Diagnoses Not on filedocumented in this encounter Additional Health Concerns Assessment Noted Time PHQ-9 Depression Total Score: 0 02/03/20 24 2:36 PM EDT documented as of this encounter Care Teams Nursing Informatics Analyst Relationship Specialty Start Date End Date Ariadne Helton MD [address] [place] [address] [phone] PCP - General Family Medicine 03/22/20 documented as of this encounter
--- OUTSIDE RECORDS SUMMARY | 2025-10-02 08:51 | XMS_ITS | Encounter Summary ---
Author Organization [employer] Address [address] [facility] [address] [place] [address] Care Team Providers Care Lay Up Operator Name Role Phone Ariadne Helton MD Primary Care Provide r Reason for Visit * Reason Comments Med Refill Encounter Details Date Type Department Care Team ([facility] st Contact Info) Description 10/09/2023 Refill [facility] [address] [place] [address] Sangita Watt MD [address] [place] [phone] Social History Tobacco Use Types Packs/Day Years [...] Description 10/16/2025 2:30 PM EST Office Visit [facility] [address] [place] [address] Mary Young, OD [address] [place] [phone] 11/06/2025 1:30 PM EST Office Visit [facility] [address] [place] [address] Ariadne Helton MD [address] [place] [address] documented as of this encounter Visit Diagnoses Not on filedocumented in this encounter Care Teams Lay Up Operator Relationship Specialty Start Date End Date Ariadne Helton MD [address] [place] [address] PCP - General Family Medicine 03/22/20 documented as of this encounter
[2025-10-02 08:58] VITALS: BP 115/75; PULSE 67; RESP 16; O2SAT 98; BMI 32.9
== END 2025-10-02 09:47 | disposition home or self-care (01) ==
LOC: HO.HSM 08:45
PROVIDERS: PCP Internal Medicine; Visit Provider Nurse Practitioner
DX: G43.E09 Chronic migraine with aura, not intractable, without status migrainosus (principal)
CPT/HCPCS: 99214

== ENCOUNTER → 2025-10-02 08:44 | Outpatient (BNVA) | payer MEDICAID, SELFPAY | PROVIDERS: PCP Internal Medicine; Visit Provider Nurse Practitioner | DX: G43.E09 Chronic migraine with aura, not intractable, without status migrainosus (principal); Z79.899 Other long term (current) drug therapy | CPT/HCPCS: 99212 ==